=== PATIENT | male | born 1955 | race Caucasian/White ===

== ENCOUNTER 2016-05-28 10:01 | Emergency (ER) | payer MEDICARE, MEDICAID ==
--- NOTE | 2016-05-28 10:37 | ER Document Report ---
ED General - General Chief Complaint: Syncope Stated Complaint: POSSIBLE SYNCOPE Time seen by provider: 10:25 Mode of Arrival: Medic Information source: Patient, Relative Notes: 61-year-old male who fell down while standing in line and office approximate 9: 00 this morning. Family with him state they were told by witnesses that the patient had eyes rolling back of his head and passed out but the patient is adamant that he did not pass out or strike his head and that he fell because of pain in his left foot where he has a wound VAC. His mental status that was normal according to family. He lives with his sister and she confirms that he has been in his normal state of health otherwise recently. Patient says he did take his medicines as usual this morning and did not take any extra. He reports has not had any recent problems with the wound VAC on his left foot. He has no complaints now. Sister reports that he fell in the bathtub 2 weeks ago and had an episode about 1 week ago where he was confused about what rhythm he was in. The patient denies numbness weakness to any extremity. He denies chest pain, abdominal pain, back pain, shortness breath, diaphoresis, nausea, vomiting, blurry vision, or difficulty with speech or swallowing. Physical Exam: General: Alert, appears well. HEENT: Normocephalic. Atraumatic. PERRLA. Extraocular movements intact. Discs sharp no papilledema tympanic members canals clear no otorhinorrhea Oropharynx clear. Neck: Supple. Non-tender. No JVD Respiratory: No respiratory distress. Few rhonchi bilateral breath sounds equal no accessory muscle use Cardiovascular: Slightly irregular no murmur Abdominal: Normal Inspection. Soft, non-tender. No distension. Normal Bowel Sounds. Back: Non-tender. No deformity or step off. Upper extremities warm to plus pulses and no deformity. Left lower extremity has a dry dressing with wound VAC in place to the foot. He has brisk upper refill all toes. I do not palpatea posterior tibial pulse. Right lower extremity also has brisk capillary refill and is warm equally with the other side but again I do not palpate dorsalis pedis or posterior tibial pulse. Neurological: Cranial nerves III-XII grossly intact bilaterally. Strength 5/5 throughout. Sensation intact to light touch. Normal cognition. Alert oriented to person and place which Sr. reports his baseline. Cerebellar function intact by finger-nose test bilaterally Normal speech. Psychological: Normal affect. Normal Mood. Skin: Warm. Dry. Normal color. TRAVEL OUTSIDE OF THE [place] IN LAST 30 DAYS: No - Related Data Allergies/Adverse Reactions: pioglitazone HCl [From [employer]] Adverse Reaction (Verified 12/20/15 12:39) Past Medical History - Social History Smoking Status: Current Every Day Smoker Family History: CAD - Past Medical History Cardiac Medical History: Reports: Hx Atrial Fibrillation, Hx Congestive Heart Failure, Hx Heart Attack, Hx Hypercholesterolemia, Hx Hypertension Pulmonary Medical History: Reports: Hx COPD Neurological Medical History: Reports: Hx Cerebrovascular Accident - Possibly had a small CVA Endocrine Medical History: Reports: Hx Diabetes Mellitus Type 2, Hx Hypothyroidism Past Surgical History: Reports: Hx Cardiac Catheterization, Hx Coronary Artery Bypass Graft - 3 vessel, Hx Coronary Stent, Hx Open Heart Surgery - STENTS TRIPLE BYPASS - Immunizations Hx Diphtheria, Pertussis, Tetanus Vaccination: No - unk Hx Pneumococcal Vaccination: 12/27/12 Review of Systems - Review of Systems Constitutional: denies: Chills, Fever EENT: denies: Ear pain, Throat pain Cardiovascular: Syncope. denies: Chest pain, Dyspnea Respiratory: Cough - Chronic related to COPD. denies: Short of breath, Wheezing Gastrointestinal: denies: Abdominal pain, Diarrhea, Nausea, Vomiting, Blood in vomit, Black stools, Rectal bleeding Genitourinary: denies: Burning, Dysuria Musculoskeletal: See HPI. denies: Back pain Hematologic/Lymphatic: denies: Swollen glands Neurological/Psychological: Weakness. denies: Numbness Physical Exam - Vital signs Vitals: Temp Pulse Resp BP Pulse Ox 97.4 F 75 18 101/50 L 100 05/28/16 10:17 05/28/16 10:17 05/28/16 10:17 05/28/16 10:17 05/28/16 10:17 Course - Re-evaluation Re-evalutation: 05/28/16 14:27 Patient has ambulated in the department without difficulty and has had no further episodes of syncope. Orthostatic Check Is Lying Blood Pressure Was 67 but This Came up with Standing and a Recheck Pressure after He Ambulated Was in the 90s. As His Heart Rate Is Only 61 It May Be That He Requires a Decrease in Dose of His Atrial Fibrillation and Blood Pressure Medicines, Instructed Not to Take Metoprolol Cardizem or Benazepril Tonight or Tomorrow and Then follow with his physician Dr. stringer tomorrow for recheck. The patient is mentating at his baseline and will be discharged in the care of his sister who lives with him his history does not suggest acute coronary syndrome or cerebrovascular disease as an etiology - Vital Signs Vital signs: Temp Pulse Resp BP Pulse Ox 97.4 F 65 18 64/49 L 100 05/28/16 10:17 05/28/16 13:15 05/28/16 10:17 05/28/16 13:15 05/28/16 10:17 - Laboratory Result Diagrams: 05/28/16 10:08 05/28/16 10:08 Laboratory results interpreted by me: 05/28/16 05/28/16 10:08 10:08 RBC 3.94 L Hgb 11.9 L Hct 35.0 L RDW 14.6 H Glucose 148 H Alkaline Phosphatase 133 H - Diagnostic Test Radiology reviewed: Image reviewed, Reports reviewed - EKG Interpretation by Me Additional EKG results interpreted by me: 05/28/16 10:36 EKG reviewed by myself shows atrial fibrillation ventricular rate 61 occasional PVC no significant change compared to 12/18/2015 Discharge - Discharge Clinical Impression: Syncope Qualifiers: Syncope type: unspecified Qualified Code(s): R55 - Syncope and collapse Atrial fibrillation Qualifiers: Atrial fibrillation type: chronic Qualified Code(s): I48.2 - Chronic atrial fibrillation Hypotension Qualifiers: Hypotension type: unspecified hypotension type Qualified Code(s): I95.9 - Hypotension, unspecified Condition: Stable Disposition: HOME, SELF-CARE Additional Instructions: Syncopal Episode Syncope (fainting or near-fainting) can occur from many different health problems. Or it can be a simple fainting spell requiring no treatment. It is safe for you to go home, but further evaluation will likely be necessary. Your work-up may include tests for internal bleeding, heart disease, medication problems, or near-strokes. Tests are not always required, however, depending on the nature of your problem. The warning signs of an impending faint include: dizziness, lightheadedness , nausea, hot flashes, tingling, and weakness. If this happens, lay down and put your feet up, then wait until all of these symptoms have passed before standing up again. If these episodes become recurrent, or if you develop chest pain, heart palpitations, mental confusion, blurred vision, or headache, then you should call the physician, or go to the emergency room. Do not take Cardizem, metoprolol, or benazepril tonight or tomorrow morning until you have checked with Dr. Stringer Referrals: LIAM STRINGER PA-C [Primary Care Provider] - Follow up tomorrow
[2016-05-28 10:43] LABS: ABSOLUTE BASOPHILS # (AUTO) 0.1 10^3/uL (0.0-0.2); ABSOLUTE EOSINOPHILS # (AUTO) 0.2 10^3/uL (0.0-0.6); ABSOLUTE LYMPHOCYTES (AUTO) 1.9 10^3/uL (0.5-4.7); ABSOLUTE MONOCYTES (AUTO) 0.8 10^3/uL (0.1-1.4); ABSOLUTE NEUT (AUTO) 7.3 10^3/uL (1.7-8.2); BASOPHILS % (AUTO) 0.6 % (0-2); EOSINOPHILS % (AUTO) 1.9 % (0-6); HEMOGLOBIN 11.9 g/dL (13.5-17.0); HGB HCT DIFFERENCE 0.7; LYMPHOCYTES % (AUTO) 18.4 % (13-45); MEAN CORPUSCULAR HEMOGLOBIN 30.2 pg (27.0-33.4); MEAN CORPUSCULAR VOLUME 89 fl (80-97); RED BLOOD COUNT 3.94 10^6/uL (4.35-5.55); RED CELL DISTRIBUTION WIDTH 14.6 % (11.5-14.0); SEGMENTED NEUTROPHILS % (AUTO) 71.1 % (42-78); WHITE BLOOD COUNT 10.2 10^3/uL (4.0-10.5)
[2016-05-28 10:59] LABS: ALANINE AMINOTRANSFERASE 36 U/L (21-72); ALBUMIN 3.5 g/dL (3.5-5.0); ALKALINE PHOSPHATASE 133 U/L (38-126); ANION GAP 10 (5-19); ASPARTATE AMINO TRANSFERASE 26 U/L (17-59); BILIRUBIN,TOTAL 0.7 mg/dL (0.2-1.3); BLOOD UREA NITROGEN 16 mg/dL (7-20); CALCIUM 9.2 mg/dL (8.4-10.2); CARBON DIOXIDE 28 mmol/L (22-30); CHLORIDE 104 mmol/L (98-107); CREATINE KINASE 116 U/L (55-170); CREATININE RESULT 0.66 mg/dL (0.52-1.25); GLUCOSE 148 mg/dL (75-110); MAGNESIUM 1.7 mg/dL (1.6-2.3); POTASSIUM 4.3 mmol/L (3.6-5.0); TOTAL PROTEIN 6.7 g/dL (6.3-8.2)
[2016-05-28 11:08] LABS: CREATINE KINASE MB 1.52 ng/mL (<4.55)
[2016-05-28 11:12] LABS: TROPONIN I < 0.012 ng/mL
[2016-05-28 12:06] LABS: APPEARANCE,URINE CLEAR; BILIRUBIN,URINE NEGATIVE (NEGATIVE); GLUCOSE, URINE NEGATIVE (NEGATIVE); KETONES,URINE NEGATIVE (NEGATIVE); LEUKOCYTE ESTERASE,URINE NEGATIVE (NEGATIVE); NITRITE,URINE NEGATIVE (NEGATIVE); PROTEIN,URINE NEGATIVE (NEGATIVE); URINE SPECIFIC GRAVITY 1.005; UROBILINOGEN,URINE NEGATIVE mg/dL (<2.0)
[2016-05-28 16:51] VITALS: BP 104/57
--- NOTE | 2016-05-28 20:07 | EKG REPORT ---
SEVERITY:- ABNORMAL ECG - ATRIAL FIBRILLATION VENTRICULAR PREMATURE COMPLEX NONSPECIFIC T ABNORMALITIES, LATERAL LEADS : Confirmed by: Jamal Person 28-May-2016 20:06:30
== END 2016-05-28 16:00 | disposition home or self-care (01) ==
LOC: ER 10:01
DX: R55 Syncope and collapse (principal); I48.2 Chronic atrial fibrillation; I95.9 Hypotension, unspecified; W19.XXXA Unspecified fall, initial encounter; F17.210 Nicotine dependence, cigarettes, uncomplicated
CPT/HCPCS: 36415; 70450; 71010; 72125; 80053; 81001; 82550; 82553; 83735; 84484; 85025; 87086; 93005; 93010; 99285

== ENCOUNTER 2016-06-16 11:58 | Day surgery (SDC) | payer MEDICARE, MEDICAID ==
[2016-06-16] MEDS ORDERED: ONDANSETRON HCL INJ/PF 4 MG/2 ML SDV ONE (12:44)
[2016-06-16] MEDS ORDERED: PROMETHAZINE HCL INJ 25 MG/1 ML VIAL ONE (12:44)
[2016-06-16] MEDS ORDERED: NALOXONE HCL INJ/PF 0.4 MG/1 ML SDV ONE (12:44)
[2016-06-16] MEDS ORDERED: MIDAZOLAM 2 MG/2 ML INJ ONE (12:44)
[2016-06-16] MEDS ORDERED: DIPHENHYDRAMINE HCL 50 MG/ML VIAL ONE (12:44)
[2016-06-16] MEDS ORDERED: EPINEPHRINE INJ 1 MG/10 ML DISP.SYRIN ONE (12:45)
[2016-06-16] MEDS ORDERED: FENTANYL CITRATE INJ/PF 100 MCG/2 ML AMPUL ONE (12:45)
[2016-06-16] MEDS ORDERED: GLUCAGON,HUMAN RECOMB 1 MG INJ ONE (12:45)
[2016-06-16] MEDS ORDERED: FLUMAZENIL INJ 0.5 MG/5 ML VIAL IV ONE (12:45)
--- NOTE | 2016-06-16 14:03 | Operative Report ---
Operative Report DATE OF SURGERY: 06/16/16 Operative Report: The risks benefits and alternatives of the procedure including risks of bleeding , perforation requiring surgery I explained to the patient in detail and informed consent is obtained. Patient is taken to the endoscopy suite and placed in a left, lateral decubital position. A rectal examination was done which did not reveal any masses tears or fissures. Timeout is called. Conscious sedation medications are provided. An Olympus videoscope was inserted into the patient's rectum. The scope was then gradually advanced all the way to the cecum. The cecum was identified by the usual anatomical landmarks including the ileocecal valve as well as the appendiceal office. Photodocumentation is obtained. The scope was then sequentially pulled back via the various segments of the colon including the ascending colon, hepatic flexure, transverse colon, splenic flexure, descending colon and finally into the rectosigmoid portions of the colon. Retroflexion maneuvers performed. Prep is poor. Patient also has a redundant colon. PREOPERATIVE DIAGNOSIS: Colorectal cancer screening POSTOPERATIVE DIAGNOSIS: Mild right-sided inflammation status post biopsy OPERATION: Colonoscopy with biopsy SURGEON: DIPIKA MARADIAGA ANESTHESIA: Moderate Sedation - 2 mg of Versed. Conscious sedation monitoring time 30 minutes. TISSUE REMOVED OR ALTERED: Colon mucosal specimen obtained obtain COMPLICATIONS: None. ESTIMATED BLOOD LOSS: none. INTRAOPERATIVE FINDINGS: No Masses, AVMs, diverticulosis obstructive lesion seen. PROCEDURE: Patient tolerated the procedure well. No immediate postprocedure complications are noted. Patient is discharged in good condition. Discharge date 06/16/2016. Discharge diet: Regular. Discharge activity: Regular. 2-3 week follow-up to discuss findings. Patient is instructed to call the office or proceed to the emergency room should there be any further problems or questions. We'll await on biopsies.
[2016-06-16 14:35] VITALS: BP 135/75
== END 2016-06-16 14:30 | disposition home or self-care (01) ==
LOC: END 11:58
PROVIDERS: ATTEND Internal Medicine Gastroenterology
PROC: 0DBL8ZX Excision of Transverse Colon, Via Natural or Artificial Opening Endoscopic, Diagnostic (ICD-10-PCS; principal; 2016-06-16 12:30)
DX: Z12.11 Encounter for screening for malignant neoplasm of colon (principal); K52.9 Noninfective gastroenteritis and colitis, unspecified; I10 Essential (primary) hypertension; I25.10 Atherosclerotic heart disease of native coronary artery without angina pectoris; E11.42 Type 2 diabetes mellitus with diabetic polyneuropathy; E78.5 Hyperlipidemia, unspecified; J44.9 Chronic obstructive pulmonary disease, unspecified; Z79.84 Long term (current) use of oral hypoglycemic drugs; Z79.82 Long term (current) use of aspirin; Z79.52 Long term (current) use of systemic steroids
CPT/HCPCS: 45380; 82962; 88305 ×2; J2250; J0171; J1200; J1610; J2310; J2405; J2550; J3010; J3490

== ENCOUNTER → 2017-11-30 | Outpatient (CLI) | payer MEDICARE, MEDICAID ==
--- NOTE | 2017-11-30 09:30 | RADIOLOGY REPORT (SQ) ---
EXAM DESCRIPTION: U/S ABDOMEN COMPLETE W/O DOP COMPLETED DATE/TIME: 11/30/2017 8:33 am REASON FOR STUDY: ABN LIVER FUNCTION (K76.89) K76.89 OTHER SPECIFIED DISEASES OF LIVER COMPARISON: CT chest 12/24/2012 TECHNIQUE: Dynamic and static grayscale images acquired of the abdomen and recorded on PACS. Additio nal selected color Doppler and spectral images recorded. LIMITATIONS: Midline bowel gas, body habitus FINDINGS: PANCREAS: No masses. Visualized pancreatic duct normal caliber. LIVER: No masses. Echotexture normal. LIVER VASCULATURE: Normal directional flow of the main portal vein and hepatic veins. GALLBLADDER: Surgically absent ULTRASOUND-DETECTED BETANCOURT'S SIGN: Negative. INTRAHEPATIC DUCTS AND COMMON DUCT: CBD and intrahepatic ducts normal caliber. No filling defects. D istal common duct not well seen due to duodenum gas INFERIOR VENA CAVA: Normal flow. AORTA: No aneurysm. RIGHT KIDNEY: Normal size. Normal echogenicity. No solid or suspicious masses. No hydronephros is. No calcifications. LEFT KIDNEY: Normal size. Normal echogenicity. No solid or suspicious masses. No hydronephrosi s. No calcifications. SPLEEN: Normal size. No solid masses. PERITONEAL AND PLEURAL SPACES: No ascites or effusions. OTHER: No other significant finding. IMPRESSION: Post cholecystectomy. Otherwise unremarkable study TECHNICAL DOCUMENTATION: JOB ID: [id number]- All Rights Reserved Reading location - IP/workstation name: [email or web address]
== END ==
LOC: RAD 07:49
PROVIDERS: ATTEND Physician Assistant
DX: K76.89 Other specified diseases of liver (principal); Z90.49 Acquired absence of other specified parts of digestive tract
CPT/HCPCS: 76700

== ENCOUNTER 2018-01-31 16:43 | Inpatient (IN) | payer MEDICARE, MEDICAID ==
--- NOTE | 2018-01-31 17:54 | ER Document Report ---
ED Medical Screen (RME) - General Chief Complaint: Leg Pain Stated Complaint: LEG SWELLING Time Seen by Provider: 01/31/18 17:48 Notes: 63-year-old male patient multiple comorbidities sent to the emergency room for swelling to his feet, redness to the right leg, and the right foot is cool to touch for the last possibly 2-3 days. The right foot is cool with slowed capillary refill compared to the left. I have greeted and performed a rapid initial assessment of this patient. A comprehensive ED assessment and evaluation of the patient, analysis of test results and completion of the medical decision making process will be conducted by additional ED providers. TRAVEL OUTSIDE OF THE [place] IN LAST 30 DAYS: No - Related Data Allergies/Adverse Reactions: No Known Allergies Allergy (Verified 01/31/18 17:38) Past Medical History - Social History Frequency of alcohol use: None Drug Abuse: None - Past Medical History Cardiac Medical History: Reports: Hx Atrial Fibrillation, Hx Congestive Heart Failure, Hx Coronary Artery Disease - CARDIAC STENTS X 3, Hx Heart Attack - ?, Hx Hypercholesterolemia, Hx Hypertension Pulmonary Medical History: Reports: Hx COPD Denies: Hx Asthma, Hx Bronchitis, Hx Pneumonia Neurological Medical History: Reports: Hx Cerebrovascular Accident - Possibly had a small CVA. Denies: Hx Seizures Endocrine Medical History: Reports: Hx Diabetes Mellitus Type 1, Hx Diabetes Mellitus Type 2, Hx Hypothyroidism Renal/ Medical History: Denies: Hx Peritoneal Dialysis Musculoskeltal Medical History: Denies Hx Arthritis Past Surgical History: Reports: Hx Cardiac Catheterization - stents, Hx Cholecystectomy, Hx Coronary Artery Bypass Graft - 3 vessel, Hx Coronary Stent, Hx Open Heart Surgery - TRIPLE BYPASS - Immunizations Hx Diphtheria, Pertussis, Tetanus Vaccination: No Physical Exam - Vital signs Vitals: Temp Pulse Resp BP Pulse Ox 98.5 F 91 18 112/68 97 01/31/18 17:08 01/31/18 17:08 01/31/18 17:08 01/31/18 17:08 01/31/18 17:08 Course - Vital Signs Vital signs: Temp Pulse Resp BP Pulse Ox 98.5 F 91 18 112/68 97 01/31/18 17:08 01/31/18 17:08 01/31/18 17:08 01/31/18 17:08 01/31/18 17:08 Doctor's Discharge - Discharge Referrals: LIAM NIÑO PA-C [Primary Care Provider] - Follow up as needed
[2018-01-31 18:53] LABS: ABSOLUTE BASOPHILS # (AUTO) 0.1 10^3/uL (0.0-0.2); ABSOLUTE EOSINOPHILS # (AUTO) 0.2 10^3/uL (0.0-0.6); ABSOLUTE LYMPHOCYTES (AUTO) 2.5 10^3/uL (0.5-4.7); ABSOLUTE NEUT (AUTO) 9.3 10^3/uL (1.7-8.2); BASOPHILS % (AUTO) 0.7 % (0-2); EOSINOPHILS % (AUTO) 1.2 % (0-6); HEMATOCRIT 44.5 % (37.9-51.0); HEMOGLOBIN 15.1 g/dL (13.5-17.0); LYMPHOCYTES % (AUTO) 19.3 % (13-45); MEAN CORPUSCULAR HEMOGLOBIN 30.6 pg (27.0-33.4); MEAN CORPUSCULAR VOLUME 90 fl (80-97); PLATELET COUNT 131 10^3/uL (150-450); RED BLOOD COUNT 4.95 10^6/uL (4.35-5.55); RED CELL DISTRIBUTION WIDTH 15.7 % (11.5-14.0); SEGMENTED NEUTROPHILS % (AUTO) 70.8 % (42-78); TOTAL CELLS COUNTED % (AUTO) 100 %; WHITE BLOOD COUNT 13.1 10^3/uL (4.0-10.5)
[2018-01-31 19:05] LABS: ALANINE AMINOTRANSFERASE 44 U/L (21-72); ALBUMIN 4.2 g/dL (3.5-5.0); ALKALINE PHOSPHATASE 162 U/L (38-126); ANION GAP 8 (5-19); ASPARTATE AMINO TRANSFERASE 37 U/L (17-59); BILIRUBIN,DIRECT 0.4 mg/dL (0.0-0.4); BILIRUBIN,TOTAL 1.4 mg/dL (0.2-1.3); BLOOD UREA NITROGEN 12 mg/dL (7-20); CALCIUM 9.3 mg/dL (8.4-10.2); CARBON DIOXIDE 30 mmol/L (22-30); CHLORIDE 100 mmol/L (98-107); CREATINE KINASE 141 U/L (55-170); GLUCOSE 174 mg/dL (75-110); POTASSIUM 4.3 mmol/L (3.6-5.0); SODIUM 138.4 mmol/L (137-145)
--- NOTE | 2018-01-31 19:11 | ER Document Report ---
ED Extremity Problem, Lower - General Chief Complaint: Leg Pain Stated Complaint: LEG SWELLING Time Seen by Provider: 01/31/18 17:48 Mode of Arrival: Ambulatory Information source: Patient Notes: 63-year-old male presents emergency department with bilateral lower extremity edema, erythema and cold right foot. Patient states that this is been going on for the last 3 days. He followed up with his PCP, Humera Neal today and was told to go to the Emergency department for evaluation. Patient has a history of Atrial fibrillation. Denies being on anticoagulants. Denies fever, chills. TRAVEL OUTSIDE OF THE [place] IN LAST 30 DAYS: No - HPI Location: Leg Occurred: Other - 3 days Where: Home Onset/Duration: Gradual Quality of pain: Achy Severity: Mild Recent injury: No Exacerbated by: Nothing Relieved by: Nothing - Related Data Allergies/Adverse Reactions: No Known Allergies Allergy (Verified 01/31/18 17:38) Past Medical History - General Information source: Patient - Social History Smoking Status: Current Every Day Smoker Frequency of alcohol use: None Drug Abuse: None Family History: CAD Patient has suicidal ideation: No Patient has homicidal ideation: No - Past Medical History Cardiac Medical History: Reports: Hx Atrial Fibrillation, Hx Congestive Heart Failure, Hx Coronary Artery Disease - CARDIAC STENTS X 3, Hx Heart Attack - ?, Hx Hypercholesterolemia, Hx Hypertension Pulmonary Medical History: Reports: Hx COPD Denies: Hx Asthma, Hx Bronchitis, Hx Pneumonia Neurological Medical History: Reports: Hx Cerebrovascular Accident - Possibly had a small CVA. Denies: Hx Seizures Endocrine Medical History: Reports: Hx Diabetes Mellitus Type 1, Hx Diabetes Mellitus Type 2, Hx Hypothyroidism Renal/ Medical History: Denies: Hx Peritoneal Dialysis Musculoskeletal Medical History: Denies Hx Arthritis Past Surgical History: Reports: Hx Cardiac Catheterization - stents, Hx Cholecystectomy, Hx Coronary Artery Bypass Graft - 3 vessel, Hx Coronary Stent, Hx Open Heart Surgery - TRIPLE BYPASS - Immunizations Hx Diphtheria, Pertussis, Tetanus Vaccination: No Hx Pneumococcal Vaccination: 12/27/12 Review of Systems - Review of Systems Constitutional: No symptoms reported EENT: No symptoms reported Cardiovascular: No symptoms reported Respiratory: No symptoms reported Gastrointestinal: No symptoms reported Genitourinary: No symptoms reported Male Genitourinary: No symptoms reported Musculoskeletal: No symptoms reported Skin: Change in color, Lesions Hematologic/Lymphatic: No symptoms reported Neurological/Psychological: No symptoms reported Physical Exam - Vital signs Vitals: Temp Pulse Resp BP Pulse Ox 98.5 F 91 18 112/68 97 01/31/18 17:08 01/31/18 17:08 01/31/18 17:08 01/31/18 17:08 01/31/18 17:08 - Notes Notes: PHYSICAL EXAMINATION: GENERAL: Well-appearing, well-nourished and in no acute distress. HEAD: Atraumatic, normocephalic. EYES: Pupils equal round and reactive to light, extraocular movements intact, sclera anicteric, conjunctiva are normal. ENT: Nares patent, oropharynx clear without exudates. Moist mucous membranes. NECK: Normal range of motion, supple without lymphadenopathy LUNGS: Breath sounds clear to auscultation bilaterally and equal. No wheezes rales or rhonchi. HEART: Regular rate and rhythm without murmurs ABDOMEN: Soft, nontender, nondistended abdomen. No guarding, no rebound. No masses appreciated. Musculoskeletal: Normal range of motion. Bilateral edema R>L. R foot cool to touch. Serous drainage from bilateral lower extremities. NEUROLOGICAL: Cranial nerves grossly intact. Normal speech, normal gait. Normal sensory, motor exams PSYCH: Normal mood, normal affect. SKIN: Erythema and serous drainage to the bilateral lower extremities. R foot cool to touch. Course - Re-evaluation Re-evalutation: 01/31/18 21:46 I spoke with the radiologist rehabilitation therapist about the arterial study report. He feels that it is a "near normal study". No signs of arterial occlusion. He does appreciate subcutaneous edema. WBC is elevated. Lactic acid elevated. Patient started on vancomycin for venous stasis cellulitis. I contacted Dr. Yee for admission. Patient is currently stable. 01/31/18 21:53 - Vital Signs Vital signs: Temp Pulse Resp BP Pulse Ox 98.5 F 91 16 127/83 H 98 01/31/18 17:08 01/31/18 17:08 01/31/18 23:01 01/31/18 23:00 01/31/18 23:01 - Laboratory Result Diagrams: 01/31/18 18:38 01/31/18 18:38 Laboratory results interpreted by me: 01/31/18 01/31/18 01/31/18 18:38 18:38 18:38 WBC 13.1 H RDW 15.7 H Plt Count 131 L Absolute Neutrophils 9.3 H Glucose 174 H Hemoglobin A1c % Lactic Acid 2.3 H Total Bilirubin 1.4 H Alkaline Phosphatase 162 H TSH 01/31/18 01/31/18 18:38 18:38 WBC RDW Plt Count Absolute Neutrophils Glucose Hemoglobin A1c % 8.3 H Lactic Acid Total Bilirubin Alkaline Phosphatase TSH 7.82 H Discharge - Discharge Clinical Impression: Venous stasis dermatitis of both lower extremities Cellulitis of lower extremity Qualifiers: Laterality: right Qualified Code(s): L03.115 - Cellulitis of right lower limb Condition: Stable Disposition: ADMITTED OBSERVATION Admitting Provider: Hospitalist Unit Admitted: Medical Floor
[2018-01-31 19:52] LABS: INTERNATIONAL RATION (INR) 1.01; PROTHROMBIN TIME 13.8 SEC (11.4-15.4)
[2018-01-31 19:53] LABS: PARTIAL THROMBOPLASTIN TIME 35.4 SEC (23.5-35.8)
--- NOTE | 2018-01-31 20:44 | XCELERA REPORT ---
[address] [address] Lower Extremity Arterial Evaluation Name: SALBADOR AVILES Age: 63 yrs Gender: Male : 1955 Patient Status: Emergency Patient Location: ER Study Date: 01/31/2018 06:55 PM Procedure: A color flow and duplex scan of the lower extremity arteries was performed on the right with velocity and waveform anaylsis. Reason For Study: Right foot cold with slowed capillary refill Ordering Physician: AYAKA ZABALA Performed By: Stephanie Omalley Measurements and Calculations Right Left SOLE SEAMER PSV 156.3 cm/sec Prox PFA PSV 55.0 cm/sec Prox Pop A PSV 170.9 cm/sec Mid IVY PSV -68.1 cm/sec Mid IMPROVEMENT ADVISOR PSV 69.1 cm/sec Melvin Pedis PSV -63.9 cm/sec Right Side Arterial Evaluation Normal velocity and triphasic waveforms noted from the Common Femoral artery to the Popliteal. Biphasic with normal velocity in the infrageniculate vessels. 0-19% stenosis at the infrageniculate vessels. Interpretation Summary Mild hemodynamically significant lesions in the right lower extremity only, on duplex imaging, at rest. : AYAKA ZABALA > Angus Aviles
[2018-01-31] MEDS ORDERED: VANCOMYCIN HCL INJ 1000 MG VIAL IV ONE (21:14)
[2018-01-31] MEDS ORDERED: DEXTROSE 40% GEL 15 GM TUBE PO PRN ×2 (21:42)
[2018-01-31] MEDS ORDERED: MAGNESIUM HYDROXIDE SUSP 30 ML UDCUP PO PRN (21:42)
[2018-01-31] MEDS ORDERED: GLUCAGON,HUMAN RECOMB 1 MG INJ IM PRN (21:42)
[2018-01-31] MEDS ORDERED: ACETAMINOPHEN 325 MG TABLET PO PRN (21:42)
[2018-01-31] MEDS ORDERED: MAG HYDROX/AL HYDROX/SIMETH SUSP 30 ML UDCUP PO PRN (21:42)
[2018-01-31] MEDS ORDERED: IPRATROPIUM/ALBUTEROL 0.5-2.5 MG/3 ML AMPUL NEB PRN (21:42)
[2018-01-31] MEDS ORDERED: DEXTROSE 50%-WATER 25 GM/50 ML DISP.SYRIN IV PRN (21:42)
[2018-01-31] MEDS ORDERED: NORMAL SALINE 1000 ML 1,000 ML IV SCH (21:45)
[2018-01-31] MEDS ORDERED: FLUTICASONE NASAL SPRAY 50 MCG/SPRY 120 SPRAY/16 GM ONE (22:35)
[2018-01-31] MEDS: FLUTICASONE NASAL SPRAY 50 MCG/SPRY 120 SPRAY/16 GM NASL SCH (22:58)
[2018-01-31] MEDS: HEPARIN SOD (PORCINE) 5,000 UNIT/ML 1 ML SYRINGE SUBCUT SCH (22:59)
[2018-01-31] MEDS: METOPROLOL TARTRATE 50 MG TABLET PO SCH (22:59)
[2018-01-31] MEDS: ATORVASTATIN CALCIUM 80 MG TABLET PO SCH (22:59)
[2018-02-01] MEDS: CETIRIZINE 10 MG TABLET PO SCH ×2 (00:07→22:06)
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
[2018-02-01] MEDS: HEPARIN SOD (PORCINE) 5,000 UNIT/ML 1 ML SYRINGE SUBCUT SCH ×3 (05:17→22:02)
[2018-02-01 07:10] LABS: ABSOLUTE EOSINOPHILS # (AUTO) 0.1 10^3/uL (0.0-0.6); ABSOLUTE LYMPHOCYTES (AUTO) 1.5 10^3/uL (0.5-4.7); ABSOLUTE MONOCYTES (AUTO) 0.8 10^3/uL (0.1-1.4); ABSOLUTE NEUT (AUTO) 7.5 10^3/uL (1.7-8.2); BASOPHILS % (AUTO) 0.5 % (0-2); EOSINOPHILS % (AUTO) 1.3 % (0-6); HEMOGLOBIN 13.8 g/dL (13.5-17.0); LYMPHOCYTES % (AUTO) 15.3 % (13-45); MEAN CORPUSCULAR HEMOGLOBIN 30.9 pg (27.0-33.4); MEAN CORPUSCULAR HGB CONC 34.6 g/dL (32.0-36.0); MEAN CORPUSCULAR VOLUME 89 fl (80-97); MONOCYTES % (AUTO) 8.1 % (3-13); PLATELET COUNT 112 10^3/uL (150-450); RED BLOOD COUNT 4.48 10^6/uL (4.35-5.55); RED CELL DISTRIBUTION WIDTH 15.8 % (11.5-14.0); SEGMENTED NEUTROPHILS % (AUTO) 74.8 % (42-78); TOTAL CELLS COUNTED % (AUTO) 100 %
[2018-02-01 07:18] LABS: ANION GAP 11 (5-19); BLOOD UREA NITROGEN 11 mg/dL (7-20); CALCIUM 8.9 mg/dL (8.4-10.2); CARBON DIOXIDE 26 mmol/L (22-30); CHLORIDE 103 mmol/L (98-107); GLUCOSE 159 mg/dL (75-110); POTASSIUM 4.2 mmol/L (3.6-5.0); SODIUM 139.8 mmol/L (137-145)
--- NOTE | 2018-02-01 10:00 | Physician Advisory Note ---
Physician Advisor ProgressNote .: Pursuant to the plan for [facility], I have reviewed the medical record for this patient. Physician Advisor Statement: Status: Medicare pt. Most cellulitis pts are most appropriate to start as Obs , then change to IP the next day if not yet felt safe for d/c. However, this pt had cellulitis (infxn) + uncontrolled DM. In addition, he initially had leukocytosis w/hyperlactatemia & hyperbilirubinemia concerning for developing into sepsis, initially had cool Rt foot concerning for possible arterial occlusion, and has continued to have recurrent tachycardia despite metoprolol. While leukocytosis is improved today, thrombocytopenia has developed. Appropriate for Inpt status. CK
[2018-02-01] MEDS: FLUTICASONE NASAL SPRAY 50 MCG/SPRY 120 SPRAY/16 GM NASL SCH ×2 (10:58→22:00)
[2018-02-01] MEDS: DILTIAZEM HCL 180 MG CAPSULE.CR PO SCH (10:58)
[2018-02-01] MEDS: LEVOTHYROXINE SODIUM 0.15 MG TABLET PO SCH (10:59)
[2018-02-01] MEDS: FUROSEMIDE 20 MG TABLET PO SCH (10:59)
[2018-02-01] MEDS: RISPERIDONE 1 MG TABLET PO SCH (10:59)
[2018-02-01] MEDS: BENAZEPRIL HCL 10 MG TABLET PO SCH (10:59)
[2018-02-01] MEDS: METOPROLOL TARTRATE 50 MG TABLET PO SCH ×2 (10:59→22:05)
[2018-02-01] MEDS: ASPIRIN 325 MG TABLET PO SCH (12:21)
[2018-02-01] MEDS: INSULIN LISPRO 100 UNIT/ML 3 ML VIAL SUBCUT PRN (12:21)
[2018-02-01] MEDS ORDERED: NITROGLYCERIN 0.4 MG/TAB 25 TAB/BOTTLE SL PRN (16:21)
[2018-02-01] MEDS ORDERED: VANCOMYCIN HCL 0 MG in DEXTROSE 5%-WATER 250 ML IV NR (16:30)
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
[2018-02-01] MEDS: PIPERACILLIN SODIUM/TAZOBACTAM 3.375 GM in NORMAL SALINE 100 ML IV SCH (18:47)
[2018-02-01] MEDS: VANCOMYCIN HCL 1,500 MG in DEXTROSE 5%-WATER 250 ML IV SCH (19:30)
[2018-02-01] MEDS: INSULIN DETEMIR 100 UNIT/ML 3 ML PEN SUBCUT SCH (22:03)
[2018-02-01] MEDS: PREGABALIN 75 MG CAPSULE PO SCH (22:04)
[2018-02-01] MEDS: ATORVASTATIN CALCIUM 80 MG TABLET PO SCH (22:05)
[2018-02-02] MEDS: PIPERACILLIN SODIUM/TAZOBACTAM 3.375 GM in NORMAL SALINE 100 ML IV SCH ×4 (01:50→17:04)
[2018-02-02] MEDS: VANCOMYCIN HCL 1,500 MG in DEXTROSE 5%-WATER 250 ML IV SCH ×3 (02:55→17:40)
[2018-02-02] MEDS: PREGABALIN 75 MG CAPSULE PO SCH ×3 (06:39→21:55)
[2018-02-02] MEDS: HEPARIN SOD (PORCINE) 5,000 UNIT/ML 1 ML SYRINGE SUBCUT SCH ×3 (06:39→21:54)
[2018-02-02] MEDS: POTASSIUM CHLORIDE 10 MEQ CAPSULE.ER PO SCH (08:58)
[2018-02-02] MEDS: INSULIN DETEMIR 100 UNIT/ML 3 ML PEN SUBCUT SCH ×2 (08:58→21:54)
[2018-02-02] MEDS: ASPIRIN 325 MG TABLET PO SCH (09:02)
[2018-02-02] MEDS: METOPROLOL TARTRATE 50 MG TABLET PO SCH ×2 (09:03→21:55)
[2018-02-02] MEDS: FUROSEMIDE 20 MG TABLET PO SCH (09:03)
[2018-02-02] MEDS: RISPERIDONE 1 MG TABLET PO SCH (09:03)
[2018-02-02] MEDS: FLUTICASONE NASAL SPRAY 50 MCG/SPRY 120 SPRAY/16 GM NASL SCH ×2 (09:03→21:54)
[2018-02-02] MEDS: BENAZEPRIL HCL 10 MG TABLET PO SCH (09:03)
[2018-02-02] MEDS: DILTIAZEM HCL 180 MG CAPSULE.CR PO SCH (09:03)
[2018-02-02] MEDS: LEVOTHYROXINE SODIUM 0.15 MG TABLET PO SCH (09:04)
[2018-02-02] MEDS ORDERED: (PENDING PHARMACY ID) (Fluticasone/Vilanterol [Breo Ellipta 200-25 Mcg Inh] 1 PUFF) IH SCH (10:00)
--- NOTE | 2018-02-02 14:21 | RADIOLOGY REPORT (SQ) ---
EXAM DESCRIPTION: VENOUS BILATERAL LOWER COMPLETED DATE/TIME: 02/02/2018 2:12 pm REASON FOR STUDY: LE edema- tender to palpation- erythema- r/o DVT COMPARISON: None. TECHNIQUE: Dynamic and static thorne scale and color images acquired of both lower extremity venous sy stems. Selected spectral images acquired with additional compression and augmentation maneuvers. Imag es stored on PACS. LIMITATIONS: None. FINDINGS: RIGHT LEG COMMON FEMORAL AND FEMORAL: Normal phasicity, compression and augmentation. No visualized echogenic m aterial on thorne scale. No defects on color images. POPLITEAL: Normal compression and augmentation. No visualized echogenic material on thorne scale. No de fects on color images. CALF VESSELS: Normal compression and augmentation. No visualized echogenic material on thorne scale. No defects on color image. GSV AND SSV: Normal compression. No visualized echogenic material on thorne scale. No defects on color images. ANY DEEP VENOUS INSUFFICIENCY: Not evaluated. ANY EVIDENCE OF POPLITEAL CYST: No. OTHER: No other significant finding. LEFT LEG COMMON FEMORAL AND FEMORAL: Normal phasicity, compression and augmentation. No visualized echogenic m aterial on thorne scale. No defects on color images. POPLITEAL: Normal compression and augmentation. No visualized echogenic material on thorne scale. No de fects on color images. CALF VESSELS: Normal compression and augmentation. No visualized echogenic material on thorne scale. No defects on color images. GSV AND SSV: Normal compression. No visualized echogenic material on thorne scale. No defects on color images. ANY DEEP VENOUS INSUFFICIENCY: Not evaluated. ANY EVIDENCE POPLITEAL CYST: No. OTHER: No other significant finding. IMPRESSION: NO EVIDENCE DVT OR SVT IN EITHER LEG. TECHNICAL DOCUMENTATION: JOB ID: [id number] [employer]- All Rights Reserved Reading location - IP/workstation name: [email or web address]
--- NOTE | 2018-02-02 15:44 | PDOC PROGRESS REPORT ---
Subjective Progress Note for:: 02/02/18 Subjective:: Still with weeping from his legs, erythema and swelling. Reason For Visit: CELLULITIS AFIB DIABETES Physical Exam Vital Signs: Temp Pulse Resp BP Pulse Ox 97.6 F 69 20 97/61 L 96 02/02/18 11:41 02/02/18 11:41 02/02/18 11:41 02/02/18 11:41 02/02/18 11:41 Intake & Output 02/01/18 02/02/18 02/03/18 06:59 06:59 06:59 Intake Total 400 1986 1325 Output Total 2100 1250 Balance 400 -114 75 Weight 113.7 kg 117.8 kg General appearance: PRESENT: no acute distress, cooperative, well-developed Head exam: PRESENT: atraumatic, normocephalic Eye exam: PRESENT: conjunctiva pink. ABSENT: scleral icterus Ear exam: PRESENT: normal external ear exam Mouth exam: PRESENT: dry mucosa Neck exam: ABSENT: carotid bruit, JVD, lymphadenopathy Respiratory exam: PRESENT: rhonchi - Right base, symmetrical. ABSENT: tachypnea , wheezes Cardiovascular exam: PRESENT: RRR, +S1, +S2 GI/Abdominal exam: PRESENT: normal bowel sounds, soft. ABSENT: guarding, tenderness Extremities exam: PRESENT: tenderness - Over excoriated areas, +1 edema - On the left, +2 edema - On the right Neurological exam: PRESENT: alert, awake, oriented to person, oriented to place Psychiatric exam: PRESENT: appropriate affect, normal mood. ABSENT: anxious Skin exam: PRESENT: other - Multiple scabs on both legs. Still with erythema. Weeping from several areas. Asymmetric swelling as above. Results Laboratory Results: 02/01/18 05:27 02/01/18 05:27 02/01/18 05:27 Free T4 1.00 Impressions: Venous Doppler Study 02/02/18 00:00 IMPRESSION: NO EVIDENCE DVT OR SVT IN EITHER LEG. Assessment & Plan - Diagnosis (1) Cellulitis of lower extremity Qualifiers: Laterality: right Qualified Code(s): L03.115 - Cellulitis of right lower limb Is this a current diagnosis for this admission?: Yes Plan: The patient has cellulitis of both lower extremities. He is on Zosyn and vancomycin. MRSA screen is pending. If negative consider discontinuing vancomycin. There is asymmetric swelling with his right leg greater than his left. Doppler study was negative for DVT. This is possibly chronic. He still has significant erythema and drainage. Consider multilayer compression wraps. (2) Diabetes Qualifiers: Diabetes mellitus type: type 2 Diabetes mellitus terminal make up operator insulin use: unspecified fdc insulin use status Diabetes mellitus complication status : without complication Qualified Code(s): E11.9 - Type 2 diabetes mellitus without complications Is this a current diagnosis for this admission?: Yes Plan: We will continue his insulin therapy. With the infection he is exhibiting some high glucose readings. He is on Humalog sliding scale. (3) Hypothyroid Qualifiers: Hypothyroidism type: unspecified Qualified Code(s): E03.9 - Hypothyroidism , unspecified Is this a current diagnosis for this admission?: Yes Plan: Continue levothyroxine. - Time Time Spent with patient: 25-34 minutes Medications reviewed and adjusted accordingly: Yes - Plan Summary Plan Summary: Evidently the home situation is no longer tenable. Discharge planning has been initiated efforts for placement.
--- NOTE | 2018-02-02 16:49 | RADIOLOGY REPORT (SQ) ---
EXAM DESCRIPTION: CHEST SINGLE VIEW COMPLETED DATE/TIME: 02/02/2018 4:33 pm REASON FOR STUDY: Crackles right base COMPARISON: 05/28/2016 NUMBER OF VIEWS: One view. TECHNIQUE: Single frontal radiographic view of the chest acquired. LIMITATIONS: None. FINDINGS: LUNGS AND PLEURA: No opacities, masses or pneumothorax. No pleural effusion. MEDIASTINUM AND HILAR STRUCTURES: No masses or contour abnormality. HEART AND VASCULATURE: Cardiac enlargement. Vascular congestion. BONES: No acute findings. HARDWARE: CABG. OTHER: No other significant finding. IMPRESSION: CARDIAC ENLARGEMENT. VASCULAR CONGESTION. TECHNICAL DOCUMENTATION: JOB ID: [id number] [employer]- All Rights Reserved Reading location - IP/workstation name: [email or web address]
[2018-02-02 18:35] LABS: VANCOMYCIN,TROUGH 17.8 ug/mL (5.0-20.0)
[2018-02-02] MEDS: ATORVASTATIN CALCIUM 80 MG TABLET PO SCH (21:55)
[2018-02-02] MEDS: CETIRIZINE 10 MG TABLET PO SCH (21:56)
[2018-02-03] MEDS: PIPERACILLIN SODIUM/TAZOBACTAM 3.375 GM in NORMAL SALINE 100 ML IV SCH ×4 (00:38→19:15)
[2018-02-03] MEDS: VANCOMYCIN HCL 1,500 MG in DEXTROSE 5%-WATER 250 ML IV SCH ×3 (03:30→17:26)
[2018-02-03 06:11] LABS: ABSOLUTE BASOPHILS # (AUTO) 0.1 10^3/uL (0.0-0.2); ABSOLUTE EOSINOPHILS # (AUTO) 0.1 10^3/uL (0.0-0.6); ABSOLUTE LYMPHOCYTES (AUTO) 1.5 10^3/uL (0.5-4.7); ABSOLUTE MONOCYTES (AUTO) 0.7 10^3/uL (0.1-1.4); ABSOLUTE NEUT (AUTO) 5.3 10^3/uL (1.7-8.2); BASOPHILS % (AUTO) 0.7 % (0-2); EOSINOPHILS % (AUTO) 1.7 % (0-6); HEMOGLOBIN 13.1 g/dL (13.5-17.0); LYMPHOCYTES % (AUTO) 20.1 % (13-45); MEAN CORPUSCULAR HEMOGLOBIN 30.9 pg (27.0-33.4); MEAN CORPUSCULAR HGB CONC 34.6 g/dL (32.0-36.0); MEAN CORPUSCULAR VOLUME 89 fl (80-97); MONOCYTES % (AUTO) 8.6 % (3-13); RED BLOOD COUNT 4.25 10^6/uL (4.35-5.55); RED CELL DISTRIBUTION WIDTH 15.3 % (11.5-14.0); SEGMENTED NEUTROPHILS % (AUTO) 68.9 % (42-78); TOTAL CELLS COUNTED % (AUTO) 100 %; WHITE BLOOD COUNT 7.7 10^3/uL (4.0-10.5)
[2018-02-03 06:17] LABS: PLATELET COUNT 98 10^3/uL (150-450)
[2018-02-03 06:24] LABS: ANION GAP 14 (5-19); BLOOD UREA NITROGEN 10 mg/dL (7-20); CALCIUM 8.8 mg/dL (8.4-10.2); CARBON DIOXIDE 23 mmol/L (22-30); CHLORIDE 103 mmol/L (98-107); GLUCOSE 214 mg/dL (75-110); POTASSIUM 4.1 mmol/L (3.6-5.0); SODIUM 139.9 mmol/L (137-145)
[2018-02-03] MEDS: PREGABALIN 75 MG CAPSULE PO SCH ×3 (06:33→22:01)
[2018-02-03] MEDS: HEPARIN SOD (PORCINE) 5,000 UNIT/ML 1 ML SYRINGE SUBCUT SCH ×3 (06:33→22:02)
[2018-02-03] MEDS: POTASSIUM CHLORIDE 10 MEQ CAPSULE.ER PO SCH (08:43)
[2018-02-03] MEDS: INSULIN LISPRO 100 UNIT/ML 3 ML VIAL SUBCUT PRN ×2 (08:43→12:02)
[2018-02-03] MEDS: INSULIN DETEMIR 100 UNIT/ML 3 ML PEN SUBCUT SCH ×2 (08:44→22:23)
[2018-02-03] MEDS: FLUTICASONE NASAL SPRAY 50 MCG/SPRY 120 SPRAY/16 GM NASL SCH ×2 (10:57→23:11)
[2018-02-03] MEDS: ASPIRIN 325 MG TABLET PO SCH (10:58)
[2018-02-03] MEDS: BENAZEPRIL HCL 10 MG TABLET PO SCH (10:59)
[2018-02-03] MEDS: RISPERIDONE 1 MG TABLET PO SCH (10:59)
[2018-02-03] MEDS: METOPROLOL TARTRATE 50 MG TABLET PO SCH ×2 (10:59→22:02)
[2018-02-03] MEDS: LEVOTHYROXINE SODIUM 0.15 MG TABLET PO SCH (11:00)
[2018-02-03] MEDS: DILTIAZEM HCL 180 MG CAPSULE.CR PO SCH (11:00)
[2018-02-03] MEDS: FUROSEMIDE 20 MG TABLET PO SCH (11:00)
--- NOTE | 2018-02-03 21:04 | PDOC PROGRESS REPORT ---
Subjective Progress Note for:: 02/03/18 Subjective:: Still with weeping from his legs, erythema and swelling. 02/03/2018-the patient still has weeping from some areas of his lower leg. Overall there are no new complaints. Reason For Visit: CELLULITIS AFIB DIABETES Physical Exam Vital Signs: Temp Pulse Resp BP Pulse Ox 97.9 F 65 15 114/52 L 96 02/03/18 17:00 02/03/18 17:00 02/03/18 17:00 02/03/18 17:00 02/03/18 17:00 Intake & Output 02/02/18 02/03/18 02/04/18 06:59 06:59 06:59 Intake Total 1986 4006 952 Output Total 2100 6571 1304 Balance -114 284 -353 Weight 117.8 kg 122.7 kg General appearance: PRESENT: no acute distress, cooperative, obese, well- developed Ear exam: PRESENT: normal external ear exam Respiratory exam: PRESENT: clear to auscultation sadia, symmetrical, unlabored. ABSENT: chest wall tenderness, rales, rhonchi, wheezes Cardiovascular exam: PRESENT: RRR, +S1, +S2 GI/Abdominal exam: PRESENT: normal bowel sounds, soft. ABSENT: distended, tenderness Extremities exam: PRESENT: tenderness, +2 edema Neurological exam: PRESENT: alert, awake, oriented to person, oriented to place Psychiatric exam: PRESENT: appropriate affect, normal mood. ABSENT: agitated Skin exam: PRESENT: other - Multiple scabbed areas possibly from excoriation. Still with several scattered spots on both legs with weeping drainage. Results Laboratory Results: 02/03/18 05:07 02/03/18 05:07 02/03/18 02/03/18 05:07 05:07 WBC 7.7 RBC 4.25 L Hgb 13.1 L Hct 38.0 MCV 89 MCH 30.9 MCHC 34.6 RDW 15.3 H Plt Count 98 L Seg Neutrophils % 68.9 Lymphocytes % 20.1 Monocytes % 8.6 Eosinophils % 1.7 Basophils % 0.7 Absolute Neutrophils 5.3 Absolute Lymphocytes 1.5 Absolute Monocytes 0.7 Absolute Eosinophils 0.1 Absolute Basophils 0.1 Sodium 139.9 Potassium 4.1 Chloride 103 Carbon Dioxide 23 Anion Gap 14 BUN 10 Creatinine 0.63 Est GFR ( Amer) > 60 Est GFR (Non-Af Amer) > 60 Glucose 214 H Calcium 8.8 02/01/18 19:30 Nasophary (Mrsa Only) MRSA Surveillance Culture - Final NO MRSA RECOVERED Impressions: Chest X-Ray 02/02/18 00:00 IMPRESSION: CARDIAC ENLARGEMENT. VASCULAR CONGESTION. Venous Doppler Study 02/02/18 00:00 IMPRESSION: NO EVIDENCE DVT OR SVT IN EITHER LEG. Assessment & Plan - Diagnosis (1) Cellulitis of lower extremity Qualifiers: Laterality: right Qualified Code(s): L03.115 - Cellulitis of right lower limb Is this a current diagnosis for this admission?: Yes Plan: The patient has cellulitis of both lower extremities. He is on Zosyn and vancomycin. MRSA screen is pending. If negative consider discontinuing vancomycin. There is asymmetric swelling with his right leg greater than his left. Doppler study was negative for DVT. This is possibly chronic. He still has significant erythema and drainage. Consider multilayer compression wraps. 02/03/2018-bilateral cellulitis. I will discontinue his vancomycin as the MRSA screening test was negative. We will continue the Zosyn. He still has discomfort on the legs making compression wrap therapy unreasonable. 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 With the infection he is exhibiting some high glucose readings. He is on Humalog sliding scale. 02/03/2018-he still has elevated serum glucose levels but they seem to be slowly trending downward. There is still over 200 for the most part. I will increase his bedtime Levemir to 45 units and increase his morning Levemir to 47 units. We will continue the sliding scale coverage. (3) Hypothyroid Qualifiers: Hypothyroidism type: unspecified Qualified Code(s): E03.9 - Hypothyroidism , unspecified Is this a current diagnosis for this admission?: Yes Plan: Continue levothyroxine. (4) CAD (coronary artery disease), [place] coronary artery Qualifiers: [place] vs. transplanted heart: [place] heart Associated angina: without angina Qualified Code(s): I25.10 - Atherosclerotic heart disease of [place] coronary artery without angina pectoris Is this a current diagnosis for this admission?: Yes Plan: Continue metoprolol, benazepril, diltiazem, furosemide and Lipitor.
[2018-02-03] MEDS: ATORVASTATIN CALCIUM 80 MG TABLET PO SCH (22:02)
[2018-02-03] MEDS: CETIRIZINE 10 MG TABLET PO SCH (22:24)
[2018-02-04] MEDS: PIPERACILLIN SODIUM/TAZOBACTAM 3.375 GM in NORMAL SALINE 100 ML IV SCH ×4 (00:22→17:27)
[2018-02-04] MEDS: VANCOMYCIN HCL 1,500 MG in DEXTROSE 5%-WATER 250 ML IV SCH (02:22)
[2018-02-04] MEDS: PREGABALIN 75 MG CAPSULE PO SCH ×3 (05:51→22:45)
[2018-02-04] MEDS: LEVOTHYROXINE SODIUM 0.15 MG TABLET PO SCH (05:51)
[2018-02-04] MEDS: HEPARIN SOD (PORCINE) 5,000 UNIT/ML 1 ML SYRINGE SUBCUT SCH ×3 (05:52→22:45)
[2018-02-04 06:11] LABS: HEMATOCRIT 35.4 % (37.9-51.0); HEMOGLOBIN 12.1 g/dL (13.5-17.0); MEAN CORPUSCULAR HEMOGLOBIN 30.6 pg (27.0-33.4); MEAN CORPUSCULAR HGB CONC 34.3 g/dL (32.0-36.0); MEAN CORPUSCULAR VOLUME 89 fl (80-97); PLATELET COUNT 104 10^3/uL (150-450); RED BLOOD COUNT 3.96 10^6/uL (4.35-5.55); RED CELL DISTRIBUTION WIDTH 15.4 % (11.5-14.0)
[2018-02-04] MEDS: FUROSEMIDE 20 MG TABLET PO SCH (09:52)
[2018-02-04] MEDS: POTASSIUM CHLORIDE 10 MEQ CAPSULE.ER PO SCH (09:53)
[2018-02-04] MEDS: METOPROLOL TARTRATE 50 MG TABLET PO SCH ×2 (09:53→22:42)
[2018-02-04] MEDS: FLUTICASONE NASAL SPRAY 50 MCG/SPRY 120 SPRAY/16 GM NASL SCH ×2 (09:53→23:03)
[2018-02-04] MEDS: RISPERIDONE 1 MG TABLET PO SCH (09:54)
[2018-02-04] MEDS: INSULIN DETEMIR 100 UNIT/ML 3 ML PEN SUBCUT SCH ×2 (09:54→22:48)
[2018-02-04] MEDS: BENAZEPRIL HCL 10 MG TABLET PO SCH (09:54)
[2018-02-04] MEDS: ASPIRIN 325 MG TABLET PO SCH (09:54)
[2018-02-04] MEDS: DILTIAZEM HCL 180 MG CAPSULE.CR PO SCH (09:55)
[2018-02-04] MEDS: INSULIN LISPRO 100 UNIT/ML 3 ML VIAL SUBCUT PRN ×2 (11:56→17:31)
[2018-02-04] MEDS ORDERED: FUROSEMIDE 20 MG TABLET PO SCH (12:15)
--- NOTE | 2018-02-04 12:24 | PDOC PROGRESS REPORT ---
Subjective Progress Note for:: 02/04/18 Subjective:: Still with weeping from his legs, erythema and swelling. 02/03/2018-the patient still has weeping from some areas of his lower leg. Overall there are no new complaints. 02/04/2018-the patient is somnolent at this encounter. He also has a more congested cough. Reason For Visit: CELLULITIS AFIB DIABETES Physical Exam Vital Signs: Temp Pulse Resp BP Pulse Ox 97.6 F 81 20 122/44 L 95 02/04/18 08:42 02/04/18 08:42 02/04/18 08:42 02/04/18 08:42 02/04/18 08:42 Intake & Output 02/03/18 02/04/18 02/05/18 06:59 06:59 06:59 Intake Total 2391 1652 100 Output Total 2675 2730 Balance -284 -1078 100 Weight 122.7 kg 125.8 kg General appearance: PRESENT: no acute distress, obese, well-developed, other - BMI 37 Eye exam: PRESENT: conjunctiva pink. ABSENT: scleral icterus Neck exam: ABSENT: carotid bruit, JVD, lymphadenopathy Respiratory exam: PRESENT: rales, symmetrical, unlabored, wheezes. ABSENT: chest wall tenderness Cardiovascular exam: PRESENT: RRR, +S1, +S2 GI/Abdominal exam: PRESENT: normal bowel sounds, soft. ABSENT: guarding, tenderness Extremities exam: PRESENT: pedal edema, tenderness Musculoskeletal exam: PRESENT: normal inspection Neurological exam: PRESENT: oriented to person, oriented to place, other - Somnolent today. ABSENT: alert Psychiatric exam: PRESENT: other - Somnolent today Skin exam: PRESENT: other - Excoriations with erythema both legs. Results Laboratory Results: 02/04/18 05:18 02/03/18 05:07 02/04/18 05:18 WBC 9.0 RBC 3.96 L Hgb 12.1 L Hct 35.4 L MCV 89 MCH 30.6 MCHC 34.3 RDW 15.4 H Plt Count 104 L 02/01/18 19:30 Nasophary ([facility] Only) MRSA Surveillance Culture - Final NO MRSA RECOVERED Impressions: Chest X-Ray 02/02/18 00:00 IMPRESSION: CARDIAC ENLARGEMENT. VASCULAR CONGESTION. Venous Doppler Study 02/02/18 00:00 IMPRESSION: NO EVIDENCE DVT OR SVT IN EITHER LEG. Assessment & Plan - Diagnosis (1) Cellulitis of lower extremity Qualifiers: Laterality: right Qualified Code(s): L03.115 - Cellulitis of right lower limb Is this a current diagnosis for this admission?: Yes Plan: The patient has cellulitis of both lower extremities. He is on Zosyn and vancomycin. MRSA screen is pending. If negative consider discontinuing vancomycin. There is asymmetric swelling with his right leg greater than his left. Doppler study was negative for DVT. This is possibly chronic. He still has significant erythema and drainage. Consider multilayer compression wraps. 02/03/2018-bilateral cellulitis. I will discontinue his vancomycin as the MRSA screening test was negative. We will continue the Zosyn. He still has discomfort on the legs making compression wrap therapy unreasonable. 02/04/2018-we will continue Zosyn therapy since the MRSA screen was negative. I would like to complete at least 10 days of therapy. It will also be of benefit to apply moisturizer to the patient's legs twice daily. 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 With the infection he is exhibiting some high glucose readings. He is on Humalog sliding scale. 02/03/2018-he still has elevated serum glucose levels but they seem to be slowly trending downward. There is still over 200 for the most part. I will increase his bedtime Levemir to 45 units and increase his morning Levemir to 47 units. We will continue the sliding scale coverage. 02/04/2018-just increase the Levemir yesterday. I will await 1 or 2 days and monitor the fingersticks before making additional changes. (3) Hypothyroid Qualifiers: Hypothyroidism type: unspecified Qualified Code(s): E03.9 - Hypothyroidism , unspecified Is this a current diagnosis for this admission?: Yes Plan: Continue levothyroxine at the current dose (4) CAD (coronary artery disease), [place] coronary artery Qualifiers: [place] vs. transplanted heart: [place] heart Associated angina: without angina Qualified Code(s): I25.10 - Atherosclerotic heart disease of [place] coronary artery without angina pectoris Is this a current diagnosis for this admission?: Yes Plan: Continue metoprolol, benazepril, diltiazem, furosemide and Lipitor. Because of the congested cough with rales and wheeze I have increased the furosemide to 40 mg daily. I will repeat a chest x-ray today and obtain a brain atretic peptide. - Time Time Spent with patient: 15-24 minutes Medications reviewed and adjusted accordingly: Yes
[2018-02-04] MEDS ORDERED: FUROSEMIDE 40 MG TABLET PO SCH (13:00)
--- NOTE | 2018-02-04 13:33 | RADIOLOGY REPORT (SQ) ---
EXAM DESCRIPTION: CHEST SINGLE VIEW COMPLETED DATE/TIME: 02/04/2018 1:20 pm REASON FOR STUDY: wheeze, dyspnea COMPARISON: 02/02/2018 NUMBER OF VIEWS: One view. TECHNIQUE: Single frontal radiographic view of the chest acquired. LIMITATIONS: None. FINDINGS: LUNGS AND PLEURA: No opacities, masses or pneumothorax. No pleural effusion. MEDIASTINUM AND HILAR STRUCTURES: No masses or contour abnormality. HEART AND VASCULATURE: Cardiac enlargement. Vascular congestion. BONES: No acute findings. HARDWARE: CABG hardware. OTHER: No other significant finding. IMPRESSION: CARDIAC ENLARGEMENT. VASCULAR CONGESTION. TECHNICAL DOCUMENTATION: JOB ID: [id number] [employer]- All Rights Reserved Reading location - IP/workstation name: [email or web address]
[2018-02-04] MEDS: ATORVASTATIN CALCIUM 80 MG TABLET PO SCH (22:45)
[2018-02-04] MEDS: GUAIFENESIN 600 MG TABLET.SA PO SCH (22:45)
[2018-02-04] MEDS: CETIRIZINE 10 MG TABLET PO SCH (23:03)
[2018-02-05] MEDS: PIPERACILLIN SODIUM/TAZOBACTAM 3.375 GM in NORMAL SALINE 100 ML IV SCH ×4 (06:48→17:14)
[2018-02-05] MEDS: LEVOTHYROXINE SODIUM 0.15 MG TABLET PO SCH (06:49)
[2018-02-05] MEDS: HEPARIN SOD (PORCINE) 5,000 UNIT/ML 1 ML SYRINGE SUBCUT SCH ×3 (06:49→21:38)
[2018-02-05] MEDS: PREGABALIN 75 MG CAPSULE PO SCH ×3 (06:49→21:41)
[2018-02-05 07:07] LABS: ANION GAP 11 (5-19); BLOOD UREA NITROGEN 34 mg/dL (7-20); CALCIUM 8.6 mg/dL (8.4-10.2); CARBON DIOXIDE 27 mmol/L (22-30); CHLORIDE 101 mmol/L (98-107); GLUCOSE 127 mg/dL (75-110); POTASSIUM 5.2 mmol/L (3.6-5.0)
[2018-02-05] MEDS: POTASSIUM CHLORIDE 10 MEQ CAPSULE.ER PO SCH (08:42)
[2018-02-05] MEDS: INSULIN DETEMIR 100 UNIT/ML 3 ML PEN SUBCUT SCH ×2 (08:43→21:39)
[2018-02-05] MEDS: DILTIAZEM HCL 180 MG CAPSULE.CR PO SCH (09:51)
[2018-02-05] MEDS: METOPROLOL TARTRATE 50 MG TABLET PO SCH ×2 (09:52→21:41)
[2018-02-05] MEDS: RISPERIDONE 1 MG TABLET PO SCH (09:52)
[2018-02-05] MEDS: BENAZEPRIL HCL 10 MG TABLET PO SCH (09:52)
[2018-02-05] MEDS: GUAIFENESIN 600 MG TABLET.SA PO SCH ×2 (09:52→21:40)
[2018-02-05] MEDS: ASPIRIN 325 MG TABLET PO SCH (09:53)
[2018-02-05] MEDS: FLUTICASONE NASAL SPRAY 50 MCG/SPRY 120 SPRAY/16 GM NASL SCH ×2 (09:53→21:37)
[2018-02-05] MEDS ORDERED: FUROSEMIDE 20 MG TABLET PO SCH (10:00)
[2018-02-05] MEDS: INSULIN LISPRO 100 UNIT/ML 3 ML VIAL SUBCUT PRN ×2 (11:28→17:15)
[2018-02-05] MEDS ORDERED: IPRATROPIUM/ALBUTEROL 0.5-2.5 MG/3 ML AMPUL NEB PRN (12:00)
[2018-02-05] MEDS ORDERED: VANCOMYCIN HCL 0 MG in DEXTROSE 5%-WATER 250 ML IV NR (12:00)
--- NOTE | 2018-02-05 12:30 | PDOC PROGRESS REPORT ---
Subjective Progress Note for:: 02/05/18 Subjective:: Still with weeping from his legs, erythema and swelling. 02/03/2018-the patient still has weeping from some areas of his lower leg. Overall there are no new complaints. 02/04/2018-the patient is somnolent at this encounter. He also has a more congested cough. 02/05/2018-the patient actually sounds more congested today. He is sleepy again today. Reason For Visit: CELLULITIS AFIB DIABETES Physical Exam Vital Signs: Temp Pulse Resp BP Pulse Ox 97.6 F 74 19 114/63 95 02/05/18 01:00 02/05/18 01:00 02/05/18 01:00 02/05/18 01:00 02/05/18 01:00 Intake & Output 02/04/18 02/05/18 02/06/18 06:59 06:59 06:59 Intake Total 1652 1073 100 Output Total 2730 1325 0 Balance -1078 -252 100 Weight 125.8 kg 122.2 kg General appearance: PRESENT: no acute distress, morbidly obese, well-developed Head exam: PRESENT: atraumatic, normocephalic Neck exam: ABSENT: carotid bruit, JVD, lymphadenopathy Respiratory exam: PRESENT: rhonchi, symmetrical, unlabored. ABSENT: wheezes - Bilateral Cardiovascular exam: PRESENT: irregular rhythm GI/Abdominal exam: PRESENT: distended, normal bowel sounds, soft. ABSENT: tenderness Extremities exam: PRESENT: other - Less erythema. Areas around the scabs are beginning to peel. The skin is very dry. Neurological exam: PRESENT: other - Somnolent today Skin exam: PRESENT: other - As above Results Laboratory Results: 02/04/18 05:18 02/05/18 06:29 02/05/18 06:29 Sodium 139.0 Potassium 5.2 H Chloride 101 Carbon Dioxide 27 Anion Gap 11 BUN 34 H Creatinine 3.84 H Est GFR ( Amer) 19 L Est GFR (Non-Af Amer) 16 L Glucose 127 H Calcium 8.6 Magnesium 1.9 02/05/18 06:29 NT-Pro-B Natriuret Pep 4820 H Impressions: Venous Doppler Study 02/02/18 00:00 IMPRESSION: NO EVIDENCE DVT OR SVT IN EITHER LEG. Chest X-Ray 02/04/18 00:00 IMPRESSION: CARDIAC ENLARGEMENT. VASCULAR CONGESTION. Assessment & Plan - Diagnosis (1) Atrial fibrillation Qualifiers: Atrial fibrillation type: paroxysmal Qualified Code(s): I48.0 - Paroxysmal atrial fibrillation Is this a current diagnosis for this admission?: Yes Plan: The patient had an episode of tachycardia yesterday. He was placed on telemetry. He is in atrial fibrillation. He is already on diltiazem and metoprolol. He is not on long-term anticoagulation. I will monitor and if there is no contraindication consider initiating therapy. (2) Cellulitis of lower extremity Qualifiers: Laterality: right Qualified Code(s): L03.115 - Cellulitis of right lower limb Is this a current diagnosis for this admission?: Yes Plan: The patient has cellulitis of both lower extremities. He is on Zosyn and vancomycin. MRSA screen is pending. If negative consider discontinuing vancomycin. There is asymmetric swelling with his right leg greater than his left. Doppler study was negative for DVT. This is possibly chronic. He still has significant erythema and drainage. Consider multilayer compression wraps. 02/03/2018-bilateral cellulitis. I will discontinue his vancomycin as the MRSA screening test was negative. We will continue the Zosyn. He still has discomfort on the legs making compression wrap therapy unreasonable. 02/04/2018-we will continue Zosyn therapy since the MRSA screen was negative. I would like to complete at least 10 days of therapy. It will also be of benefit to apply moisturizer to the patient's legs twice daily. 02/05/2018-the legs are improving. There is less erythema and less swelling. He is on Zosyn. I am adding vancomycin more for his pulmonary issues. May extend the Zosyn to match the vancomycin. 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 With the infection he is exhibiting some high glucose readings. He is on Humalog sliding scale. 02/03/2018-he still has elevated serum glucose levels but they seem to be slowly trending downward. There is still over 200 for the most part. I will increase his bedtime Levemir to 45 units and increase his morning Levemir to 47 units. We will continue the sliding scale coverage. 02/04/2018-just increase the Levemir yesterday. I will await 1 or 2 days and monitor the fingersticks before making additional changes. 02/05/2018-his Accu-Cheks still sore from variability but overall seems to be improving. (4) Hypothyroid Qualifiers: Hypothyroidism type: unspecified Qualified Code(s): E03.9 - Hypothyroidism , unspecified Is this a current diagnosis for this admission?: Yes Plan: Continue levothyroxine at the current dose (5) CAD (coronary artery disease), [place] coronary artery Qualifiers: [place] vs. transplanted heart: [place] heart Associated angina: without angina Qualified Code(s): I25.10 - Atherosclerotic heart disease of [place] coronary artery without angina pectoris Is this a current diagnosis for this admission?: Yes - Time Time Spent with patient: 25-34 minutes Medications reviewed and adjusted accordingly: Yes
[2018-02-05] MEDS: NORMAL SALINE 1000 ML 1,000 ML IV PRN ×2 (12:41→12:45)
[2018-02-05] MEDS ORDERED: IPRATROPIUM/ALBUTEROL 0.5-2.5 MG/3 ML AMPUL NEB SCH (14:00)
[2018-02-05] MEDS: PANTOT AC/MIN OIL/PET HY-PHL OINT 50 GM TOP SCH ×2 (14:02→17:15)
[2018-02-05] MEDS ORDERED: VANCOMYCIN HCL 1,500 MG in DEXTROSE 5%-WATER 250 ML IV SCH (16:00)
[2018-02-05] MEDS ORDERED: METHYLPREDNISOLONE INJ 125 MG/2 ML SDV IV ONE (18:45)
[2018-02-05] MEDS: IPRATROPIUM/ALBUTEROL 0.5-2.5 MG/3 ML AMPUL NEB SCH (19:56)
[2018-02-05] MEDS: CETIRIZINE 10 MG TABLET PO SCH (21:40)
[2018-02-05] MEDS: ATORVASTATIN CALCIUM 80 MG TABLET PO SCH (21:41)
[2018-02-06] MEDS: IPRATROPIUM/ALBUTEROL 0.5-2.5 MG/3 ML AMPUL NEB SCH ×5 (00:35→19:43)
[2018-02-06] MEDS: PIPERACILLIN SODIUM/TAZOBACTAM 3.375 GM in NORMAL SALINE 100 ML IV SCH ×3 (00:58→12:08)
[2018-02-06] MEDS: HEPARIN SOD (PORCINE) 5,000 UNIT/ML 1 ML SYRINGE SUBCUT SCH ×3 (06:03→22:29)
[2018-02-06] MEDS: LEVOTHYROXINE SODIUM 0.15 MG TABLET PO SCH (06:04)
[2018-02-06] MEDS: PREGABALIN 75 MG CAPSULE PO SCH ×3 (06:04→22:42)
[2018-02-06 06:35] LABS: ALBUMIN 3.4 g/dL (3.5-5.0); BLOOD UREA NITROGEN 38 mg/dL (7-20); CALCIUM 8.4 mg/dL (8.4-10.2); GLUCOSE 303 mg/dL (75-110); PHOSPHORUS 6.5 mg/dL (2.5-4.5); POTASSIUM 4.9 mmol/L (3.6-5.0)
[2018-02-06 06:40] LABS: CHLORIDE 95 mmol/L (98-107); SODIUM 132.6 mmol/L (137-145)
[2018-02-06 06:48] LABS: CARBON DIOXIDE 16 mmol/L (22-30)
[2018-02-06 06:49] LABS: ANION GAP 22 (5-19)
--- NOTE | 2018-02-06 07:33 | RADIOLOGY REPORT (SQ) ---
EXAM DESCRIPTION: XR CHEST 1 VIEW COMPLETED DATE/TME: 02/06/2018 06:00 CLINICAL HISTORY: 63 years, Male, Increasing dyspnea COMPARISON: EXAM DESCRIPTION: CLINICAL HISTORY: Increasing dyspnea COMPARISON: 02/04/2018 FINDINGS: Single view of the chest is submitted. Cardiac silhouette is enlarged. There is mild pulmonary edema, unchanged. No dense consolidation. IMPRESSION: Persistent cardiomegaly.
[2018-02-06] MEDS: INSULIN LISPRO 100 UNIT/ML 3 ML VIAL SUBCUT PRN ×4 (08:14→22:44)
[2018-02-06] MEDS: INSULIN DETEMIR 100 UNIT/ML 3 ML PEN SUBCUT SCH ×2 (08:15→22:43)
[2018-02-06] MEDS: METOPROLOL TARTRATE 50 MG TABLET PO SCH ×2 (10:39→22:42)
[2018-02-06] MEDS: ASPIRIN 325 MG TABLET PO SCH (10:39)
[2018-02-06] MEDS: DILTIAZEM HCL 180 MG CAPSULE.CR PO SCH (10:40)
[2018-02-06] MEDS: PANTOT AC/MIN OIL/PET HY-PHL OINT 50 GM TOP SCH ×3 (10:40→17:12)
[2018-02-06] MEDS: GUAIFENESIN 600 MG TABLET.SA PO SCH ×2 (10:40→22:42)
[2018-02-06] MEDS: FLUTICASONE NASAL SPRAY 50 MCG/SPRY 120 SPRAY/16 GM NASL SCH ×2 (10:41→22:43)
[2018-02-06] MEDS: RISPERIDONE 1 MG TABLET PO SCH (10:41)
--- NOTE | 2018-02-06 11:44 | PDOC PROGRESS REPORT ---
Subjective Progress Note for:: 02/06/18 Subjective:: Still with weeping from his legs, erythema and swelling. 02/03/2018-the patient still has weeping from some areas of his lower leg. Overall there are no new complaints. 02/04/2018-the patient is somnolent at this encounter. He also has a more congested cough. 02/05/2018-the patient actually sounds more congested today. He is sleepy again today. 02/06/2018-the patient is still very congested. He has a gurgly cough. He has not become hypoxic. He is still complaining of food getting stuck in his throat. He continues to complain about coughing when swallowing. Reason For Visit: VENOUS STASIS,CELLULITIS Physical Exam Vital Signs: Temp Pulse Resp BP Pulse Ox 97.8 F 80 16 124/66 93 02/06/18 09:00 02/06/18 09:00 02/06/18 09:00 02/06/18 09:00 02/06/18 09:00 Pulse Oximeter Continuous Start: 02/05/18 18: 33 Freq: RTQ4 Status: Active Document 02/06/18 04:30 SFL (Rec: 02/06/18 04:41 SFL [id number]) Pulse Oximetry Assessment Oxygen Saturation (92-100) 93 Oxygen Delivery Method Room Air Fraction of Inspired Oxygen (FIO2) 21 Equipment Usage Equipment in Use Continuous SpO2 Machine # 6 Intake & Output 02/05/18 02/06/18 02/07/18 06:59 06:59 06:59 Intake Total 1073 3178 Output Total 1325 600 Balance -252 2578 Weight 122.2 kg 127.7 kg General appearance: PRESENT: mild distress, morbidly obese, well-developed Eye exam: PRESENT: conjunctiva pink. ABSENT: scleral icterus Mouth exam: PRESENT: moist, tongue midline Neck exam: ABSENT: carotid bruit, lymphadenopathy Respiratory exam: PRESENT: rhonchi, symmetrical, other - Very congested cough Cardiovascular exam: PRESENT: irregular rhythm, +S1, +S2 GI/Abdominal exam: PRESENT: normal bowel sounds, soft. ABSENT: tenderness Extremities exam: PRESENT: +1 edema Neurological exam: PRESENT: alert, awake, oriented to person, oriented to place , other - Dysarthria chronic Psychiatric exam: PRESENT: normal mood. ABSENT: agitated Skin exam: PRESENT: other - Excoriations both legs Results Laboratory Results: 02/04/18 05:18 02/06/18 05:35 02/06/18 05:35 Sodium 132.6 L Potassium 4.9 Chloride 95 L Carbon Dioxide 16 L D Anion Gap 22 H BUN 38 H Creatinine 5.01 H Est GFR ( Amer) 14 L Est GFR (Non-Af Amer) 12 L Glucose 303 H Calcium 8.4 Phosphorus 6.5 H Magnesium 1.7 Albumin 3.4 L 02/05/18 06:29 NT-Pro-B Natriuret Pep 4820 H Impressions: Venous Doppler Study 02/02/18 00:00 IMPRESSION: NO EVIDENCE DVT OR SVT IN EITHER LEG. Chest X-Ray 02/06/18 06:00 IMPRESSION: Persistent cardiomegaly. Assessment & Plan - Diagnosis (1) Atrial fibrillation Qualifiers: Atrial fibrillation type: paroxysmal Qualified Code(s): I48.0 - Paroxysmal atrial fibrillation Is this a current diagnosis for this admission?: Yes Plan: The patient had an episode of tachycardia yesterday. He was placed on telemetry. He is in atrial fibrillation. He is already on diltiazem and metoprolol. He is not on long-term anticoagulation. I will monitor and if there is no contraindication consider initiating therapy. 02/06/2018-the patient is still in A. fib. I am going to add Eliquis. I will discontinue his subcutaneous heparin tomorrow. We will need to monitor his rate. I am lowering his diltiazem dose in order to administer more furosemide. (2) Cellulitis of lower extremity Qualifiers: Laterality: right Qualified Code(s): L03.115 - Cellulitis of right lower limb Is this a current diagnosis for this admission?: Yes Plan: The patient has cellulitis of both lower extremities. He is on Zosyn and vancomycin. MRSA screen is pending. If negative consider discontinuing vancomycin. There is asymmetric swelling with his right leg greater than his left. Doppler study was negative for DVT. This is possibly chronic. He still has significant erythema and drainage. Consider multilayer compression wraps. 02/03/2018-bilateral cellulitis. I will discontinue his vancomycin as the MRSA screening test was negative. We will continue the Zosyn. He still has discomfort on the legs making compression wrap therapy unreasonable. 02/04/2018-we will continue Zosyn therapy since the MRSA screen was negative. I would like to complete at least 10 days of therapy. It will also be of benefit to apply moisturizer to the patient's legs twice daily. 02/05/2018-the legs are improving. There is less erythema and less swelling. He is on Zosyn. I am adding vancomycin more for his pulmonary issues. May extend the Zosyn to match the vancomycin. 02/06/2018-continued improvement. Continue vancomycin and Zosyn. (3) Diabetes Qualifiers: Diabetes mellitus type: type 2 Diabetes mellitus intermediate school teacher insulin use: unspecified intermediate school teacher insulin use status Diabetes mellitus complication status : without complication Qualified Code(s): E11.9 - Type 2 diabetes mellitus without complications Is this a current diagnosis for this admission?: Yes Plan: We will continue his insulin therapy. With the infection he is exhibiting some high glucose readings. He is on Humalog sliding scale. 02/03/2018-he still has elevated serum glucose levels but they seem to be slowly trending downward. There is still over 200 for the most part. I will increase his bedtime Levemir to 45 units and increase his morning Levemir to 47 units. We will continue the sliding scale coverage. 02/04/2018-just increase the Levemir yesterday. I will await 1 or 2 days and monitor the fingersticks before making additional changes. 02/05/2018-his Accu-Cheks still sore from variability but overall seems to be improving. 02/06/2018-the patient's glucose was high this morning. He did receive a dose of Solu-Medrol last night. I am going to place him on prednisone 20 mg daily for pulmonary reasons. I believe his current Lantus dose unchanged and monitor the sliding scale. His glucose should decrease with the decreased steroid dose. (4) Hypothyroid Qualifiers: Hypothyroidism type: unspecified Qualified Code(s): E03.9 - Hypothyroidism , unspecified Is this a current diagnosis for this admission?: Yes Plan: Continue levothyroxine at the current dose (5) CAD (coronary artery disease), [place] coronary artery Qualifiers: [place] vs. transplanted heart: [place] heart Associated angina: without angina Qualified Code(s): I25.10 - Atherosclerotic heart disease of [place] coronary artery without angina pectoris Is this a current diagnosis for this admission?: Yes Plan: Continue metoprolol, benazepril, diltiazem, furosemide and Lipitor. Because of the congested cough with rales and wheeze I have increased the furosemide to 40 mg daily. I will repeat a chest x-ray today and obtain a brain natriuretic peptide. 02/06/2018-the patient's blood pressure has been low intermittently. His brain natruretic peptide is high. I am going to decrease his diltiazem dose in order to administer more Lasix. If his rate increases so we will consider increasing his metoprolol. - Time Time Spent with patient: 25-34 minutes Medications reviewed and adjusted accordingly: Yes - Plan Summary Plan Summary: As above
[2018-02-06] MEDS ORDERED: DILTIAZEM HCL 180 MG CAPSULE.CR PO SCH (12:00)
[2018-02-06] MEDS: SEVELAMER HCL 800 MG TABLET PO SCH ×2 (12:08→17:09)
[2018-02-06] MEDS: PIPERACILLIN SODIUM/TAZOBACTAM 2.25 GM in NORMAL SALINE 50 ML IV SCH ×2 (17:09→23:23)
[2018-02-06] MEDS: APIXABAN 5 MG TABLET PO SCH (17:10)
[2018-02-06] MEDS: FUROSEMIDE 20 MG TABLET PO SCH (17:11)
[2018-02-06] MEDS ORDERED: INSULIN LISPRO 100 UNIT/ML 3 ML VIAL SUBCUT ONE ×2 (17:15→22:45)
[2018-02-06] MEDS: ATORVASTATIN CALCIUM 80 MG TABLET PO SCH (22:42)
[2018-02-06] MEDS: CETIRIZINE 10 MG TABLET PO SCH (22:43)
[2018-02-07] MEDS: IPRATROPIUM/ALBUTEROL 0.5-2.5 MG/3 ML AMPUL NEB SCH ×4 (02:53→19:40)
[2018-02-07] MEDS: PIPERACILLIN SODIUM/TAZOBACTAM 2.25 GM in NORMAL SALINE 50 ML IV SCH ×3 (05:38→17:54)
[2018-02-07] MEDS: PREGABALIN 75 MG CAPSULE PO SCH ×3 (05:39→23:31)
[2018-02-07] MEDS: LEVOTHYROXINE SODIUM 0.15 MG TABLET PO SCH (05:39)
[2018-02-07 06:19] LABS: HEMATOCRIT 35.7 % (37.9-51.0); HEMOGLOBIN 12.2 g/dL (13.5-17.0); MEAN CORPUSCULAR HEMOGLOBIN 30.5 pg (27.0-33.4); MEAN CORPUSCULAR HGB CONC 34.2 g/dL (32.0-36.0); MEAN CORPUSCULAR VOLUME 89 fl (80-97); RED CELL DISTRIBUTION WIDTH 15.5 % (11.5-14.0); WHITE BLOOD COUNT 15.9 10^3/uL (4.0-10.5)
[2018-02-07 06:22] LABS: PLATELET COUNT 90 10^3/uL (150-450)
[2018-02-07 06:37] LABS: ALBUMIN 3.8 g/dL (3.5-5.0); BLOOD UREA NITROGEN 58 mg/dL (7-20); CALCIUM 8.3 mg/dL (8.4-10.2); CHLORIDE 92 mmol/L (98-107); GLUCOSE 279 mg/dL (75-110); PHOSPHORUS 7.2 mg/dL (2.5-4.5); POTASSIUM 5.8 mmol/L (3.6-5.0)
[2018-02-07 06:43] LABS: CARBON DIOXIDE 16 mmol/L (22-30); SODIUM 130.9 mmol/L (137-145)
[2018-02-07 06:45] LABS: ANION GAP 23 (5-19)
[2018-02-07] MEDS: INSULIN DETEMIR 100 UNIT/ML 3 ML PEN SUBCUT SCH ×2 (08:47→23:33)
--- NOTE | 2018-02-07 09:49 | RADIOLOGY REPORT (SQ) ---
EXAM DESCRIPTION: JOSE DAVID SWALLOW COMPLETED DATE/TIME: 02/07/2018 9:35 am REASON FOR STUDY: aspiration COMPARISON: None. TECHNIQUE: Videofluoroscopic swallowing examination was performed in conjunction with speech patholo gy. Videofluoroscopic imaging was obtained and reviewed and these are the findings: RADIATION DOSE: Fluoro time 3.9 minutes 2 images saved to PACS. LIMITATIONS: None FINDINGS: The patient was brought into the fluoro room and placed upright on a modified barium swall ow chair. The patient was then given multiple consistencies mixed with barium to swallow under live fluoroscopic video guidance. According to the Speech Pathologist there was laryngeal penetration wit h thin and nectar thick consistencies. Eventual trace aspiration was seen from residuals. Pureed co nsistency was swallowed without incident. Significant residuals were seen in the vallecula with poor clearing due to lack of epiglottic inversion. Please refer to the speech pathology report for furthe r details. IMPRESSION: LARYNGEAL PENETRATION WITH THIN AND NECTAR THICK CONSISTENCIES. TRACHEAL ASPIRATION SEE N FROM RESIDUALS.PLEASE SEE SPEECH PATHOLOGIST REPORT FOR OTHER FINDINGS AND RECOMMENDATIONS. COMMENT: None Quality ID [id number]: Final reports for procedures using fluoroscopy that document radiation exposure laya yareli, or exposure time and number of fluorographic images (if radiation exposure indices are not avail able) TECHNICAL DOCUMENTATION: JOB ID: [id number] [employer]- All Rights Reserved Reading location - IP/workstation name: [email or web address] [id number]
--- NOTE | 2018-02-07 09:55 | ST Inp Modified Barium Swallow ---
Medical Diagnosis - Medical Diagnoses Medical Diagnosis Description & ICD-10 Code(s): atrial fibrillation, dysphagia ST Inpatient [facility] – [place] - General Date: 02/07/18 Date of Onset: 01/31/18 - ongoing problem, no onset date given from patient - History History Obtained From: Patient, Other - EMR Medications: Medications Reviewed Allergies: No known allergies - Subjective Current Nutritional Means: PO Current PO Diet: Mechanical - cut, Thickened liquids Current Symptoms: Coughing, c/o Globus sensation Pain: Patient reports, 0/5 - Objective Assessment: Upright, Left Lateral - Food Trials Food Trials Used: Thin liquids, [place] thick liquids, Pureed, Regular The Patient: Was Able to Self Feed - Assessment Labial Function: Within Normal Limits Lingual Function: Within Normal Limits Mandibular Function: Within Normal Limits Dentition: Edentulous Velo-Pharyngeal Function: Unremarkable Laryngeal Function: Volitional Cough - WNL, Volitional Swallow - WNL - Pharyngeal Stage Initiation of Pharyngeal Stage: Normal Decreased Laryngeal Elevation: No Reduced Velo-Pharyngeal Closure: no Reduced Pressure Generation: No Pre-Swallowing Pooling in Valleculae: Significant Pre-Swallowing Pooling in Pyriforms: None Reduced Thyro-Hyiod Approximation: No Reduced Epiglottic Excursion: Yes - significant Reduced Pharyngeal Peristalsis: No Multiple Swallows With: Ineffective Clearance Post Swallow Residuals in Valleculae: Significant Post Swallow Residuals in Pyriforms: Mild - Esophageal Stage Esophageal Stage Comments: material was seen to move up from esophagus through the UES into pharynx, this material was then suspected to be aspirated - Impression/Summary Laryngeal Penetration: Yes, Deep, Silent, during swallow, after swallow Tracheal Aspiration: yes, silent, during swallow, after swallow Compensatory Strategies: attempted hard swallow, throat clear and re-swallow, and chin tuck strategies to reduce residue in valleculae, none cleared residue. Liquid wash partially cleared residue. Patient Presents With: Pharyngeal stage dysph., Severe, s/s reflux Risk of Aspiration: Moderate Risk of Nutritional Compromise: Mild - Recommendations Solid Diet Recommendations: Mechanical Soft, Ground Meat Liquid Diet Recommendations: [place]-Thick Strict Aspitarion Precautions: Yes Dysphagia Therapy with INSULATION CUPOLA OPERATOR: Yes, Home Health Recommended Techniques: Fully Upright During Meal, Med Crushed in Applesauce, Small Bites and Sips, Alternate Bites/Sips Other Recommendations: Patient was seen to penetrate and aspirate on thin liquids, also seen to aspirate residuals from other trials. Some penetration seen with nectar thick liquids, but not reaching the vocal folds and able to redirect. Significant residuals seen in valleculae as texture increased due to reduced epiglottic inversion. Safest diet is judged to be nectar thick liquids and mechanical soft, ground meats. However, due to reduced epiglottic inversion , the paitent is still at risk of aspiration due to limited airway protection and risk of residue being aspirated. Discussed findings with physician, who voiced understanding. Diet downgraded to ground meats. Recommend follow up 1-2 times per week to address adherence to swallowing recommendations and dysphagia exercises. - Time Total Time: 30 Total Timed Minutes: 30
[2018-02-07] MEDS ORDERED: DILTIAZEM HCL 120 MG CAP.SR.24H PO SCH (10:00)
[2018-02-07] MEDS: SEVELAMER HCL 800 MG TABLET PO SCH ×2 (11:26→12:03)
[2018-02-07] MEDS: PANTOT AC/MIN OIL/PET HY-PHL OINT 50 GM TOP SCH ×3 (12:01→17:54)
[2018-02-07] MEDS: PREDNISONE 20 MG TABLET PO SCH (12:02)
[2018-02-07] MEDS: RISPERIDONE 1 MG TABLET PO SCH (12:02)
[2018-02-07] MEDS: ASPIRIN 325 MG TABLET PO SCH (12:02)
[2018-02-07] MEDS: APIXABAN 5 MG TABLET PO SCH ×2 (12:03→17:54)
[2018-02-07] MEDS: FLUTICASONE NASAL SPRAY 50 MCG/SPRY 120 SPRAY/16 GM NASL SCH ×2 (12:03→23:31)
[2018-02-07] MEDS: GUAIFENESIN 600 MG TABLET.SA PO SCH (12:03)
[2018-02-07] MEDS: FUROSEMIDE 20 MG TABLET PO SCH ×2 (12:03→17:54)
[2018-02-07] MEDS: METOPROLOL TARTRATE 50 MG TABLET PO SCH ×2 (12:03→23:38)
[2018-02-07] MEDS ORDERED: GUAIFENESIN SYRP 200 MG/10 ML UDC PO PRN (12:17)
--- NOTE | 2018-02-07 13:10 | PSYCHOLOGICAL NOTE ---
Psych Note - Psych Note Psych Note: Reason for Consult: Capacity SALBADOR AVILES is a 63 year old male with a past medical history of atrial fibrillation, systolic heart failure, COPD, developmental delay, peripheral vascular disease and debility. He presents with 3 days of bilateral lower extremity swelling and pain complicated by a severely scarred posttraumatic left lower extremity. Psychiatry was asked to consult the Patient for a capacity evaluation given concern for patients ability to make medical decisions on his own. The role of a capacity evaluation is to assess and measure a Patients abstract/rational level of thinking, executive functioning/planning/sequencing, executive functioning/switching, attention, orientation, safety/problem solving, memory, and ability to complete daily living activities. Chart review conducted Patient had a capacity conducted on 12/20/2015 because of concerns on if the patient could live alone. The following impression/plan is from that capacity. Impression/Plan: Patients results suggest poor planning, organizational skills, impulsivity, thinking and processing which affects his ability to live independently and care for himself safely. Patient demonstrated poor orientation, planning, memory and recall, abstract thinking, and impaired processing. The 12/19/[address] findings indicated: No significant findings. Given the lack of findings from the head CT and his degree of incorrect responses on the capacity screening it is possible patient has an Intellectual Developmental Disorder (IDD). Problem solving and safety issues are of concern given his concrete versus abstract thinking deficit. Thus, Patient is considered a safety risk especially when living at home alone. In addition, given his poor attention to detail, impaired problem solving, poor general knowledge orientation, the likelihood of the Patient placing himself in a compromised position with the inability to help himself, is likely. Patient will require assistance to manage his daily and personal affairs and will not be able to safely live in an unsupervised situation. Patients cognitive deficits are long standing in nature and his judgement, insight, physical capabilities, impulsivity, reasoning, and cognition will remain impaired. As such, Patient is not felt to be capable of making medical, legal, financial, and personal decisions that are in his best interest, particularly given his lack of insight into his medical history. If his sister is not willing or able to take guardianship, then DSS/APS involvement is suggested for guardianship. Ultimately, patient needs a 24-hour, supervised, structured living environment, and a guardian to represent his financial, legal, medical, and personal matters. Consulted with Dr. De La Cruz regarding this capacity evaluation and she is in agreement with the findings and recommendations. DIAGNOSES: 1. R/O 319 (F79) Unspecified Intellectual Disability (Intellectual Developmental Disorder). RECOMMENDATIONS: 1. Guardian to represent the Patients medical, legal, financial and personal matters is recommended. 2. Follow up with psychological testing to further make IDD determination. 3. Follow up with outpatient psychiatric provider for medication management. 4. Patient requires living in a 24 hour, supervised, structured living environment. 5. Driving recommendation: Driving re-evaluation is recommended given Patients attentional and processing speed deficits. He is currently considered to be a safety risk because of the identified deficits and the attending physician is asked to consider sending a letter to the State requesting his driving privileges be revoked.
--- NOTE | 2018-02-07 13:22 | PDOC PROGRESS REPORT ---
Subjective Progress Note for:: 02/07/18 Subjective:: Still with weeping from his legs, erythema and swelling. 02/03/2018-the patient still has weeping from some areas of his lower leg. Overall there are no new complaints. 02/04/2018-the patient is somnolent at this encounter. He also has a more congested cough. 02/05/2018-the patient actually sounds more congested today. He is sleepy again today. 02/06/2018-the patient is still very congested. He has a gurgly cough. He has not become hypoxic. He is still complaining of food getting stuck in his throat. He continues to complain about coughing when swallowing. 02/07/2018-the patient is slightly better today. He did have a modified barium swallow. He still feels poorly. New acute kidney injury is now present. The patient is also developed diarrhea. This is been over the last 2-3 days. He was constipated and this could be secondary to aggressive bowel regimen. Reason For Visit: VENOUS STASIS,CELLULITIS Physical Exam Vital Signs: Temp Pulse Resp BP Pulse Ox 97.5 F 93 18 131/71 H 91 L 02/07/18 11:53 02/07/18 11:53 02/07/18 11:53 02/07/18 11:53 02/07/18 11:53 Pulse Oximeter Continuous Start: 02/05/18 18: 33 Freq: RTQ4 Status: Active Document 02/07/18 11:52 HCR (Rec: 02/07/18 11:52 HCR [id number]) Pulse Oximetry Assessment Oxygen Saturation (92-100) 92 Oxygen Delivery Method Room Air Fraction of Inspired Oxygen (FIO2) 21 Equipment Usage Equipment in Use Continuous SpO2 Machine # 6 Intake & Output 02/06/18 02/07/18 02/08/18 06:59 06:59 06:59 Intake Total 3178 730 Output Total 600 Balance 2578 730 Weight 127.7 kg 127.7 kg General appearance: PRESENT: cooperative, mild distress, morbidly obese - BMI 38.2, well-developed Mouth exam: PRESENT: moist, tongue midline Respiratory exam: PRESENT: rales - Still with congested breath sounds, symmetrical. ABSENT: accessory muscle use, crackles, prolonged expiratory phas , unlabored, wheezes Cardiovascular exam: PRESENT: RRR, +S1, +S2 GI/Abdominal exam: PRESENT: distended - Protuberant abdomen, normal bowel sounds , soft. ABSENT: tenderness Neurological exam: PRESENT: alert, awake, oriented to person, oriented to place , oriented to situation Psychiatric exam: PRESENT: flat affect. ABSENT: agitated, anxious Focused psych exam: ABSENT: restlessness Skin exam: PRESENT: other - Excoriations on legs continue to heal. Results Laboratory Results: 02/07/18 06:01 02/07/18 06:01 02/07/18 02/07/18 06:01 06:01 WBC 15.9 H RBC 4.00 L Hgb 12.2 L Hct 35.7 L MCV 89 MCH 30.5 MCHC 34.2 RDW 15.5 H Plt Count 90 L Sodium 130.9 L Potassium 5.8 H Chloride 92 L Carbon Dioxide 16 L Anion Gap 23 H BUN 58 H Creatinine 6.58 H Est GFR ( Amer) 10 L Est GFR (Non-Af Amer) 9 L Glucose 279 H Calcium 8.3 L Phosphorus 7.2 H Magnesium 1.8 Albumin 3.8 02/05/18 06:29 NT-Pro-B Natriuret Pep 4820 H Impressions: Venous Doppler Study 02/02/18 00:00 IMPRESSION: NO EVIDENCE DVT OR SVT IN EITHER LEG. Chest X-Ray 02/06/18 06:00 IMPRESSION: Persistent cardiomegaly. Modified Barium Swallow 02/07/18 00:00 IMPRESSION: LARYNGEAL PENETRATION WITH THIN AND NECTAR THICK CONSISTENCIES. TRACHEAL ASPIRATION SEEN FROM RESIDUALS.PLEASE SEE SPEECH PATHOLOGIST REPORT FOR OTHER FINDINGS AND RECOMMENDATIONS. Assessment & Plan - Diagnosis (1) Acute kidney failure Qualifiers: Acute renal failure type: unspecified Qualified Code(s): N17.9 - Acute kidney failure, unspecified Is this a current diagnosis for this admission?: Yes Plan: 02/07/2018-the serum creatinine was increasing. I did give the patient some fluids to compensate. Unfortunately the serum creatinine almost doubled today. It is greater than 6.0. Nephrology will be seeing the patient. I have discontinued the vancomycin. I await nephrology suggestions for ongoing treatment plan. (2) Aspiration into airway Qualifiers: Encounter type: initial encounter Qualified Code(s): T17.908A - Unspecified foreign body in respiratory tract, part unspecified causing other injury, initial encounter Is this a current diagnosis for this admission?: Yes Plan: 02/07/2018-the patient has had a congested cough. He recognized that he was coughing when he ate. This did not significantly improve during his stay. Modified barium swallow was obtained today which showed namrata aspiration, significant reflux and pooling in the vallecula. I will ask GI to see the patient for esophagogastroscopy. Speech therapy has made dietary changes to compensate for his compromised swallow. We will also obtain a CT scan for the soft tissues in the neck to rule out any anatomical issues that might be compromising his swallow. (3) Atrial fibrillation Qualifiers: Atrial fibrillation type: paroxysmal Qualified Code(s): I48.0 - Paroxysmal atrial fibrillation Is this a current diagnosis for this admission?: Yes Plan: The patient had an episode of tachycardia yesterday. He was placed on telemetry. He is in atrial fibrillation. He is already on diltiazem and metoprolol. He is not on long-term anticoagulation. I will monitor and if there is no contraindication consider initiating therapy. 02/06/2018-the patient is still in A. fib. I am going to add Eliquis. I will discontinue his subcutaneous heparin tomorrow. We will need to monitor his rate. I am lowering his diltiazem dose in order to administer more furosemide. Because of the ongoing atrial fibrillation I did add Eliquis. I will discontinue his subcutaneous heparin. If he needs a gastroscopy we will need to hold the Eliquis before hand. (4) Cellulitis of lower extremity Qualifiers: Laterality: right Qualified Code(s): L03.115 - Cellulitis of right lower limb Is this a current diagnosis for this admission?: Yes Plan: The patient has cellulitis of both lower extremities. He is on Zosyn and vancomycin. MRSA screen is pending. If negative consider discontinuing vancomycin. There is asymmetric swelling with his right leg greater than his left. Doppler study was negative for DVT. This is possibly chronic. He still has significant erythema and drainage. Consider multilayer compression wraps. 02/03/2018-bilateral cellulitis. I will discontinue his vancomycin as the MRSA screening test was negative. We will continue the Zosyn. He still has discomfort on the legs making compression wrap therapy unreasonable. 02/04/2018-we will continue Zosyn therapy since the MRSA screen was negative. I would like to complete at least 10 days of therapy. It will also be of benefit to apply moisturizer to the patient's legs twice daily. 02/05/2018-the legs are improving. There is less erythema and less swelling. He is on Zosyn. I am adding vancomycin more for his pulmonary issues. May extend the Zosyn to match the vancomycin. 02/06/2018-continued improvement. Continue vancomycin and Zosyn. 02/07/2018-we will continue the Zosyn. The patient's acute kidney injury has forced me to discontinue the vancomycin completely. I will check levels. Resume when appropriate. I will also adjust the Zosyn. (5) Diabetes Qualifiers: Diabetes mellitus type: type 2 Diabetes mellitus longterm insulin use: unspecified longterm insulin use status Diabetes mellitus complication status : without complication Qualified Code(s): E11.9 - Type 2 diabetes mellitus without complications Is this a current diagnosis for this admission?: Yes Plan: We will continue his insulin therapy. With the infection he is exhibiting some high glucose readings. He is on Humalog sliding scale. 02/03/2018-he still has elevated serum glucose levels but they seem to be slowly trending downward. There is still over 200 for the most part. I will increase his bedtime Levemir to 45 units and increase his morning Levemir to 47 units. We will continue the sliding scale coverage. 02/04/2018-just increase the Levemir yesterday. I will await 1 or 2 days and monitor the fingersticks before making additional changes. 02/05/2018-his Accu-Cheks still sore from variability but overall seems to be improving. 02/06/2018-the patient's glucose was high this morning. He did receive a dose of Solu-Medrol last night. I am going to place him on prednisone 20 mg daily for pulmonary reasons. I believe his current Lantus dose unchanged and monitor the sliding scale. His glucose should decrease with the decreased steroid dose. 02/07/2018-the Levemir is now 55 units in the morning and 45 units at night. He is still having elevated glucose readings. I will make slow adjustments based on the Humalog sliding scale requirements. (6) Hypothyroid Qualifiers: Hypothyroidism type: unspecified Qualified Code(s): E03.9 - Hypothyroidism , unspecified Is this a current diagnosis for this admission?: Yes Plan: Continue levothyroxine at the current dose (7) CAD (coronary artery disease), [place] coronary artery Qualifiers: [place] vs. transplanted heart: [place] heart Associated angina: without angina Qualified Code(s): I25.10 - Atherosclerotic heart disease of [place] coronary artery without angina pectoris Is this a current diagnosis for this admission?: Yes Plan: Continue metoprolol, benazepril, diltiazem, furosemide and Lipitor. Because of the congested cough with rales and wheeze I have increased the furosemide to 40 mg daily. I will repeat a chest x-ray today and obtain a brain natriuretic peptide. 02/06/2018-the patient's blood pressure has been low intermittently. His brain natruretic peptide is high. I am going to decrease his diltiazem dose in order to administer more Lasix. If his rate increases so we will consider increasing his metoprolol. 02/07/2018-I did decrease the diltiazem to 120 mg daily. This will be changed to 30 mg every 6 hours because of his aspiration. His blood pressure and pulse have remained reasonably controlled. - Time Time Spent with patient: 25-34 minutes Medications reviewed and adjusted accordingly: Yes
[2018-02-07 13:35] LABS: VANCOMYCIN,TROUGH 36.4 ug/mL (5.0-20.0)
[2018-02-07] MEDS: LOPERAMIDE HCL 2 MG CAPSULE PO PRN (13:57)
[2018-02-07] MEDS: INSULIN LISPRO 100 UNIT/ML 3 ML VIAL SUBCUT PRN ×3 (14:00→23:33)
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
--- NOTE | 2018-02-07 14:59 | RADIOLOGY REPORT (SQ) ---
EXAM DESCRIPTION: CT SOFT TISSUE NECK WITHOUT COMPLETED DATE/TIME: 02/07/2018 2:29 pm REASON FOR STUDY: Marked aspiration. Non-contrast/kidney injury COMPARISON: None. TECHNIQUE: Noncontrast scanning from skull base through lung apices with review of bone, soft tissue and lung windows. Reconstructed coronal and sagittal MPR images reviewed. All images stored on PAC S. All CT scanners at this facility use dose modulation, iterative reconstruction, and/or weight based d osing when appropriate to reduce radiation dose to as low as reasonably achievable (ALARA). [facility]: Dose Right [facility]: CareDose [facility]: Dose Right [facility]: Teradose 4D [facility]: Formarum RADIATION DOSE: mGy. LIMITATIONS: None. FINDINGS: SKULL BASE: Intact. MAJOR SALIVARY GLANDS: No solid or cystic masses. No inflammatory changes. LYMPHADENOPATHY: No adenopathy. MUCOSAL MASSES OR ASYMMETRY: No mucosal masses or asymmetry. LARYNX/CORDS: No abnormal findings. LUNG APICES: Patchy ground-glass opacities in the upper lobes, right greater than left. BONES: Intact. THYROID: Normal size. No masses. PARANASAL SINUSES: Prominent mucous membrane thickening in the maxillary sinuses. OTHER: No other significant finding. IMPRESSION: 1. NO SIGNIFICANT FINDING IN THE SOFT TISSUES OF THE NECK. 2. MAXILLARY SINUS DISEASE. 3. PATCHY GROUND-GLASS OPACITIES IN THE UPPER LOBES, RIGHT GREATER THAN LEFT. MAY BE DUE TO ATELECTA SIS, INFLAMMATION, OR INFECTION. TECHNICAL DOCUMENTATION: JOB ID: [id number] Quality ID # [id number]: Final reports with documentation of one or more dose reduction techniques (e.g., Au tomated exposure control, adjustment of the mA and/or kV according to patient size, use of iterative reconstruction technique) 2010 [employer]- All Rights Reserved Reading location - IP/workstation name: [email or web address]
[2018-02-07] MEDS ORDERED: VANCOMYCIN HCL 1,500 MG in DEXTROSE 5%-WATER 250 ML IV SCH (16:00)
[2018-02-07] MEDS: LACTOBACILLUS ACIDOPHILUS 250 MG TAB PO SCH (17:54)
[2018-02-07] MEDS: DILTIAZEM HCL 30 MG TABLET PO SCH ×2 (17:54→23:32)
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
--- NOTE | 2018-02-07 19:12 | RADIOLOGY REPORT (SQ) ---
EXAM DESCRIPTION: U/S RETROPERITON (RENAL/AORTA) COMPLETED DATE/TIME: 02/07/2018 6:49 pm REASON FOR STUDY: RODRICK COMPARISON: None. TECHNIQUE: Dynamic and static grayscale images acquired of the kidneys and bladder and recorded on P ACS. Additional selected color Doppler and spectral images recorded. LIMITATIONS: Study is limited somewhat due to the patient's body habitus. FINDINGS: RIGHT KIDNEY: 15 cm in length. Increased cortical echogenicity. No solid or suspicious mas ses. No hydronephrosis. No calcifications. LEFT KIDNEY: 13.6 cm in length. Increased cortical echogenicity. No solid or suspicious masses. No h ydronephrosis. No calcifications. BLADDER: No masses. OTHER: No other significant finding. IMPRESSION: CHRONIC MEDICAL RENAL DISEASE. NO HYDRONEPHROSIS. TECHNICAL DOCUMENTATION: JOB ID: [id number]- All Rights Reserved Reading location - IP/workstation name: [email or web address]
[2018-02-07] MEDS: ATORVASTATIN CALCIUM 80 MG TABLET PO SCH (23:32)
[2018-02-07] MEDS: CETIRIZINE 10 MG TABLET PO SCH (23:32)
[2018-02-08] MEDS: PIPERACILLIN SODIUM/TAZOBACTAM 2.25 GM in NORMAL SALINE 50 ML IV SCH ×3 (00:59→18:31)
[2018-02-08] MEDS: IPRATROPIUM/ALBUTEROL 0.5-2.5 MG/3 ML AMPUL NEB SCH ×4 (02:21→19:56)
[2018-02-08 05:22] LABS: HEMATOCRIT 34.9 % (37.9-51.0); HEMOGLOBIN 12.1 g/dL (13.5-17.0); MEAN CORPUSCULAR HEMOGLOBIN 30.9 pg (27.0-33.4); MEAN CORPUSCULAR HGB CONC 34.7 g/dL (32.0-36.0); MEAN CORPUSCULAR VOLUME 89 fl (80-97); RED BLOOD COUNT 3.92 10^6/uL (4.35-5.55); RED CELL DISTRIBUTION WIDTH 15.3 % (11.5-14.0); WHITE BLOOD COUNT 17.8 10^3/uL (4.0-10.5)
[2018-02-08 05:42] LABS: ALBUMIN 3.7 g/dL (3.5-5.0); BLOOD UREA NITROGEN 71 mg/dL (7-20); CALCIUM 8.3 mg/dL (8.4-10.2); CARBON DIOXIDE 17 mmol/L (22-30); CHLORIDE 93 mmol/L (98-107); GLUCOSE 171 mg/dL (75-110); PHOSPHORUS 8.4 mg/dL (2.5-4.5); SODIUM 130.3 mmol/L (137-145)
[2018-02-08 05:51] LABS: ANION GAP 20 (5-19)
[2018-02-08 05:59] LABS: POTASSIUM 6.3 mmol/L (3.6-5.0)
[2018-02-08 06:06] LABS: PLATELET COUNT 79 10^3/uL (150-450)
[2018-02-08 06:18] LABS: ABSOLUTE LYMPHOCYTES# (MANUAL) 0.7 10^3/uL (0.5-4.7); ABSOLUTE MONOCYTES # (MANUAL) 1.4 10^3/uL (0.1-1.4); ABSOLUTE NEUTROPHILS# (MANUAL) 15.7 10^3/uL (1.7-8.2); BASOPHILS % (MANUAL) 0 % (0-2); EOSINOPHILS % (MANUAL) 0 % (0-6); LYMPHOCYTES % (MANUAL) 4 % (13-45); MONOCYTES % (MANUAL) 8 % (3-13); SEGMENTED NEUTROPHILS % (MAN) 88 % (42-78); TOTAL CELLS COUNTED 100
[2018-02-08 06:22] LABS: ANISOCYTOSIS 1+; BURR CELLS 3+; PLATELET COMMENT DECREASED; PLATELET LARGE PRESENT; POIKILOCYTOSIS 2+; TEAR DROP CELLS 1+; TOXIC GRANULATION SLIGHT
[2018-02-08] MEDS ORDERED: SODIUM POLYSTYRENE SULFONATE 15 GM/60 ML PO ONE (06:45)
[2018-02-08] MEDS ORDERED: INSULIN REG, HUMAN 100 UNIT/ML 3 ML VIAL (PYX) IV ONE (06:45)
[2018-02-08] MEDS ORDERED: DEXTROSE 50%-WATER 25 GM/50 ML DISP.SYRIN IV ONE (06:45)
[2018-02-08] MEDS ORDERED: CALCIUM GLUCONATE 1,000 MG in DEXTROSE 5%-WATER 50 ML IV ONE ×2 (06:45→09:30)
[2018-02-08] MEDS ORDERED: CALCIUM GLUCONATE 1000 MG/10 ML INJ IV ONE (07:45)
[2018-02-08] MEDS: PREGABALIN 75 MG CAPSULE PO SCH ×3 (07:53→23:26)
[2018-02-08] MEDS: LEVOTHYROXINE SODIUM 0.15 MG TABLET PO SCH (07:53)
[2018-02-08] MEDS: DILTIAZEM HCL 30 MG TABLET PO SCH ×4 (07:56→23:26)
[2018-02-08] MEDS: INSULIN DETEMIR 100 UNIT/ML 3 ML PEN SUBCUT SCH ×2 (08:58→23:37)
[2018-02-08] MEDS ORDERED: NORMAL SALINE 1000 ML 1,000 ML IV PRN (11:34)
[2018-02-08] MEDS: APIXABAN 5 MG TABLET PO SCH (12:02)
[2018-02-08] MEDS ORDERED: TUBERCULIN,PURIF.PROT.DERIV. 5 TU/0.1 ML TEST 1 ML VIAL ID ONE ×2 (14:00→20:30)
--- NOTE | 2018-02-08 14:26 | Operative Report ---
Operative Report DATE OF SURGERY: 02/08/18 PREOPERATIVE DIAGNOSIS: Renal failure, critical need for hemodialysis access POSTOPERATIVE DIAGNOSIS: Same OPERATION: Right femoral Vas-Cath placement (uncuffed dialysis catheter placement) under ultrasound guidance SURGEON: LISSY KHAN ANESTHESIA: Local TISSUE REMOVED OR ALTERED: None COMPLICATIONS: None ESTIMATED BLOOD LOSS: 20 cc INTRAOPERATIVE FINDINGS: None PROCEDURE: The procedure was declared a medical emergency by hospitalist and nephrology. Patient's right groin was prepped and draped in the usual sterile fashion. The right femoral vein was visualized with the ultrasound. Local anesthetic was administered. The right femoral vein was entered without difficulty however I could not feed the guidewire despite different technical measures. Therefore the needle was pulled out. Compression was then applied. Second attempt entered the right femoral vein without difficulty. Guidewire was easily passed this time. The track and right femoral vein was sequentially dilated and the Vas-Cath was placed without difficulty and sutured in place. It withdrew blood and flushed easily. Dressings were applied. Patient tolerated procedure well with no apparent complications.
[2018-02-08] MEDS ORDERED: HEPARIN SOD (PORCINE) 1,000 UNIT/ML 10 ML VIAL IV PRN (16:14)
--- NOTE | 2018-02-08 16:54 | PDOC PROGRESS REPORT ---
Subjective Progress Note for:: 02/08/18 Subjective:: I saw the patient around noontime today. He was more somnolent compared to yesterday. His potassium was elevated in the morning at around 6.3. His kidney function is also worse. Since this are symptoms and indications of uremia I decided the patient needs to have an urgent dialysis treatment today. Patient due to his developmental delay cannot really make any decisions regarding this and we do not have any family members or next of kin who we can ask for consent so I did discuss the case with the hospitalist, Dr. Lr and we both agreed that they can sign consent for the patient as a medical necessity for this procedure. I then went ahead and called our surgeon, Dr.'s were to place a temporary dialysis catheter. Urgent dialysis was then arranged. I am currently seeing the patient during dialysis treatment this afternoon. He is still somnolent but comfortable lying down in bed. He answers a few questions but not all of them and more often his speech is incomprehensible at this time. He said just not feeling well but denies shortness of breath no pain anywhere. He opens his eyes every now and then. Currently he is tolerating dialysis without any problems to his newly placed dialysis catheter. Reason For Visit: VENOUS STASIS,CELLULITIS Physical Exam Vital Signs: Temp Pulse Resp BP Pulse Ox 97.9 F 100 14 140/67 H 97 02/08/18 16:00 02/08/18 16:00 02/08/18 16:00 02/08/18 16:00 02/08/18 16:00 Pulse Oximeter Continuous Start: 02/05/18 18: 33 Freq: RTQ4 Status: Active Document 02/08/18 12:06 [facility] [place] (Rec: 02/08/18 12:06 [facility] [place] [id number]) Pulse Oximetry Assessment Oxygen Saturation (92-100) 95 Oxygen Flow Rate (L/min) 3 Oxygen Delivery Method Nasal Cannula Fraction of Inspired Oxygen (FIO2) 32 Equipment Usage Equipment in Use Continuous SpO2 Machine # N 6 Intake & Output 02/07/18 02/08/18 02/09/18 06:59 06:59 06:59 Intake Total 730 750 266 Output Total 650 Balance 730 100 266 Weight 127.7 kg 127.7 kg Vitals urinalysis: Blood pressure 124/70, heart rate of 108, blood flow rate of 250 mL/min, dialysate flow rate of 500 mL/min. Exam: General appearance: PRESENT: no acute distress, lethargic and occasionally answers questions Head exam: PRESENT: atraumatic, normocephalic Eye exam: PRESENT: conjunctiva pink, PERRLA. ABSENT: scleral icterus Neck exam: ABSENT: JVD Respiratory exam: PRESENT: Coarse breath sounds. Positive crackles diffusely ABSENT: Rhonchi, unlabored, wheezes Cardiovascular exam: PRESENT: Regular rate rhythm -+S1, +S2. ABSENT: diastolic murmur, systolic murmur GI/Abdominal exam: PRESENT: Diminished bowel sounds, soft. ABSENT: guarding, mass, tenderness Extremities exam: Grade 2 bilateral lower extremity and change pitting edema Neurological exam: PRESENT: Lethargic and somnolent. Skin exam: PRESENT: dry, warm, lower extremity erythema and lesions and change Results Laboratory Results: 02/08/18 04:59 02/08/18 10:45 02/08/18 02/08/18 02/08/18 04:59 04:59 10:45 WBC 17.8 H RBC 3.92 L Hgb 12.1 L Hct 34.9 L MCV 89 MCH 30.9 MCHC 34.7 RDW 15.3 H Plt Count 79 L Seg Neutrophils % Not Reportable Lymphocytes % Not Reportable Monocytes % Not Reportable Eosinophils % Not Reportable Basophils % Not Reportable Absolute Neutrophils Not Reportable Absolute Lymphocytes Not Reportable Absolute Monocytes Not Reportable Absolute Eosinophils Not Reportable Absolute Basophils Not Reportable Sodium 130.3 L Potassium 6.3 H* 6.0 H* Chloride 93 L Carbon Dioxide 17 L Anion Gap 20 H BUN 71 H Creatinine 7.38 H Est GFR ( Amer) 9 L Est GFR (Non-Af Amer) 8 L Glucose 171 H Calcium 8.3 L Phosphorus 8.4 H Magnesium 2.0 Albumin 3.7 02/05/18 06:29 NT-Pro-B Natriuret Pep 4820 H Impressions: Venous Doppler Study 02/02/18 00:00 IMPRESSION: NO EVIDENCE DVT OR SVT IN EITHER LEG. Chest X-Ray 02/06/18 06:00 IMPRESSION: Persistent cardiomegaly. Modified Barium Swallow 02/07/18 00:00 IMPRESSION: LARYNGEAL PENETRATION WITH THIN AND NECTAR THICK CONSISTENCIES. TRACHEAL ASPIRATION SEEN FROM RESIDUALS.PLEASE SEE SPEECH PATHOLOGIST REPORT FOR OTHER FINDINGS AND RECOMMENDATIONS. Soft Tissue Neck CT 02/07/18 00:00 IMPRESSION: 1. NO SIGNIFICANT FINDING IN THE SOFT TISSUES OF THE NECK. 2. MAXILLARY SINUS DISEASE. 3. PATCHY GROUND-GLASS OPACITIES IN THE UPPER LOBES, RIGHT GREATER THAN LEFT. MAY BE DUE TO ATELECTASIS, INFLAMMATION, OR INFECTION. Renal Ultrasound 02/07/18 17:29 IMPRESSION: CHRONIC MEDICAL RENAL DISEASE. NO HYDRONEPHROSIS. Assessment & Plan - Diagnosis (1) Acute kidney injury Is this a current diagnosis for this admission?: Yes Plan: Most likely secondary to vancomycin toxicity currently with worsening uremic symptoms. Urinalysis unable to be collected. Kidney ultrasound is negative for any hydronephrosis but has some increased echogenicity. No eosinophilia. Due to worsening uremic symptoms with decline in mental status, hyperkalemia and metabolic acidosis the patient needs urgent hemodialysis treatment. As a stated above Dr. Morton the hospitalist and myself signed a consent for the patient for medical purpose. We will get hepatitis panel and place a PPD just in case the patient would need a little bit longer dialysis treatment pending renal recovery if he will recover. We will do dialysis today for 2.5 hours, using the patient's right femoral trialysis catheter, with 2 potassium bath, blood flow rate of 250 mL per minute , dialysate flow rate of 500 mL per minute, ultrafiltration 2 L as tolerated, no heparin and no Procrit needed. Patient will be monitored toward 2-hour dialysis treatment by the dialysis nurse and manage accordingly. I will plan to do another dialysis treatment tomorrow. (2) Cellulitis of lower extremity Qualifiers: Laterality: right Qualified Code(s): L03.115 - Cellulitis of right lower limb Is this a current diagnosis for this admission?: Yes Plan: Is still currently on antibiotics. (3) Venous stasis dermatitis of both lower extremities Is this a current diagnosis for this admission?: Yes (4) Hyperkalemia Is this a current diagnosis for this admission?: Yes Plan: Patient was given some anti-hyperkalemia cocktail earlier this morning but dialysis would help this issue. (5) Hyperphosphatemia Is this a current diagnosis for this admission?: Yes (6) Metabolic acidosis Is this a current diagnosis for this admission?: Yes Plan: Dialysis would hopefully improve this as well. (7) Aspiration into airway Qualifiers: Encounter type: initial encounter Qualified Code(s): T17.908A - Unspecified foreign body in respiratory tract, part unspecified causing other injury, initial encounter Is this a current diagnosis for this admission?: Yes (8) Diabetes Qualifiers: Diabetes mellitus type: type 2 Diabetes mellitus [facility] insulin use: unspecified terminal make up operator insulin use status Diabetes mellitus complication status : without complication Qualified Code(s): E11.9 - Type 2 diabetes mellitus without complications Is this a current diagnosis for this admission?: Yes - Notes Notes: I coordinated the plan for this patient today with Dr. Morton, Dr. Sultana to surgeon and his treating nurse today. We will continue to closely monitor the patient today. - Time Time with patient: Greater than 35 minutes
--- NOTE | 2018-02-08 17:47 | PDOC PROGRESS REPORT ---
Subjective Progress Note for:: 02/08/18 Subjective:: 02/08/2018-patient was seen this morning is in the bed not in distress somnolent is any pain or any other problems discussed the case with Dr. Henson this morning we are making arrangements for immediate dialysis because there is no family member is available and patient is unable to take medical decisions but the first signed the consent papers for catheter placement permacath placement for dialysis and dialysis procedure Reason For Visit: VENOUS STASIS,CELLULITIS Physical Exam Vital Signs: Temp Pulse Resp BP Pulse Ox 97.9 F 100 14 140/67 H 97 02/08/18 16:00 02/08/18 16:00 02/08/18 16:00 02/08/18 16:00 02/08/18 16:00 Pulse Oximeter Continuous Start: 02/05/18 18: 33 Freq: RTQ4 Status: Active Document 02/08/18 12:06 [place] (Rec: 02/08/18 12:06 [email or web address] [email or web address]) Pulse Oximetry Assessment Oxygen Saturation (92-100) 95 Oxygen Flow Rate (L/min) 3 Oxygen Delivery Method Nasal Cannula Fraction of Inspired Oxygen (FIO2) 32 Equipment Usage Equipment in Use Continuous SpO2 Machine # N [id number] Intake & Output 02/07/18 02/08/18 02/09/18 06:59 06:59 06:59 Intake Total 730 750 266 Output Total 650 Balance 730 100 266 Weight 127.7 kg 127.7 kg General appearance: PRESENT: no acute distress Head exam: PRESENT: atraumatic Eye exam: PRESENT: PERRLA Mouth exam: PRESENT: tongue midline Neck exam: ABSENT: carotid bruit, JVD, lymphadenopathy, thyromegaly Respiratory exam: PRESENT: rhonchi, wheezes, other - chest with congestive breath sounds rather Cardiovascular exam: PRESENT: RRR. ABSENT: diastolic murmur, rubs, systolic murmur GI/Abdominal exam: PRESENT: normal bowel sounds, soft. ABSENT: tenderness Extremities exam: PRESENT: other - Rashes present in both lower extremities with edema Neurological exam: PRESENT: alert, awake Skin exam: PRESENT: other - Excoriations in both lower extremities Results Laboratory Results: 02/08/18 04:59 02/08/18 10:45 02/08/18 02/08/18 02/08/18 04:59 04:59 10:45 WBC 17.8 H RBC 3.92 L Hgb 12.1 L Hct 34.9 L MCV 89 MCH 30.9 MCHC 34.7 RDW 15.3 H Plt Count 79 L Seg Neutrophils % Not Reportable Lymphocytes % Not Reportable Monocytes % Not Reportable Eosinophils % Not Reportable Basophils % Not Reportable Absolute Neutrophils Not Reportable Absolute Lymphocytes Not Reportable Absolute Monocytes Not Reportable Absolute Eosinophils Not Reportable Absolute Basophils Not Reportable Sodium 130.3 L Potassium 6.3 H* 6.0 H* Chloride 93 L Carbon Dioxide 17 L Anion Gap 20 H BUN 71 H Creatinine 7.38 H Est GFR ( Amer) 9 L Est GFR (Non-Af Amer) 8 L Glucose 171 H Calcium 8.3 L Phosphorus 8.4 H Magnesium 2.0 Albumin 3.7 02/05/18 06:29 NT-Pro-B Natriuret Pep 4820 H Impressions: Venous Doppler Study 02/02/18 00:00 IMPRESSION: NO EVIDENCE DVT OR SVT IN EITHER LEG. Chest X-Ray 02/06/18 06:00 IMPRESSION: Persistent cardiomegaly. Modified Barium Swallow 02/07/18 00:00 IMPRESSION: LARYNGEAL PENETRATION WITH THIN AND NECTAR THICK CONSISTENCIES. TRACHEAL ASPIRATION SEEN FROM RESIDUALS.PLEASE SEE SPEECH PATHOLOGIST REPORT FOR OTHER FINDINGS AND RECOMMENDATIONS. Soft Tissue Neck CT 02/07/18 00:00 IMPRESSION: 1. NO SIGNIFICANT FINDING IN THE SOFT TISSUES OF THE NECK. 2. MAXILLARY SINUS DISEASE. 3. PATCHY GROUND-GLASS OPACITIES IN THE UPPER LOBES, RIGHT GREATER THAN LEFT. MAY BE DUE TO ATELECTASIS, INFLAMMATION, OR INFECTION. Renal Ultrasound 02/07/18 17:29 IMPRESSION: CHRONIC MEDICAL RENAL DISEASE. NO HYDRONEPHROSIS. Assessment & Plan - Diagnosis (1) Acute kidney failure Qualifiers: Acute renal failure type: unspecified Qualified Code(s): N17.9 - Acute kidney failure, unspecified Is this a current diagnosis for this admission?: Yes Plan: 04/10/2017-nephrology was consulted yesterday because of the high potassium levels and worsening creatinine this morning creatinine potassium was 6.3 despite medical management and Dr. Henson plan to do emergency dialysis today and catheter was placed a dialysis catheter was placed under dialysis was initiated this AKA may be secondary to sepsis and vancomycin trough came back as 36.400 vancomycin was discontinued yesterday. Because no family is available and the patient need emergency dialysis both Dr. Henson admit we signed the consent (2) Aspiration into airway Qualifiers: Encounter type: initial encounter Qualified Code(s): T17.908A - Unspecified foreign body in respiratory tract, part unspecified causing other injury, initial encounter Is this a current diagnosis for this admission?: Yes Plan: 04/10/2017-patient has problem with swallowing and modified barium swallow was done which was abnormal and patient is a very high risk for aspiration pneumonia on he may need PEG to be in the future. Modified barium swallow shows significant pooling in the vallecula. GI is on board speech therapy was requested we will follow daily recommendations. (3) Atrial fibrillation Qualifiers: Atrial fibrillation type: paroxysmal Qualified Code(s): I48.0 - Paroxysmal atrial fibrillation Is this a current diagnosis for this admission?: Yes Plan: patient has a history of atrial fibrillation he is not on any current anticoagulation prior to hospitalization he was started on Eliquis yesterday and the nurse called me to notify that this increased bleeding from the IV site and also from the noticed a little bit of blood at the tip of the pain is so we plan to discontinue Eliquis for couple of days and we are going to put him on SCDs in the meantime (4) Cellulitis of lower extremity Qualifiers: Laterality: right Qualified Code(s): L03.115 - Cellulitis of right lower limb Is this a current diagnosis for this admission?: Yes Plan: 04/10/2017 patient has lower extremity cellulitis on both sides he is IV vancomycin and Zosyn Vanco was discontinued because of trough level of 36.4. We will adjusted dose as per the nephrology recommendations (5) Diabetes Qualifiers: Diabetes mellitus type: type 2 Diabetes mellitus [facility] insulin use: unspecified [facility] insulin use status Diabetes mellitus complication status : without complication Qualified Code(s): E11.9 - Type 2 diabetes mellitus without complications Is this a current diagnosis for this admission?: Yes Plan: 04/10/2017-Levemir 55 units in the morning 44 units in the evening and is also on sliding scale. Blood sugar today is 161. We will make adjustments to the sliding scale based on the blood sugar readings (6) CAD (coronary artery disease), [place] coronary artery Qualifiers: [place] vs. transplanted heart: [place] heart Associated angina: without angina Qualified Code(s): I25.10 - Atherosclerotic heart disease of [place] coronary artery without angina pectoris Is this a current diagnosis for this admission?: Yes Plan: 04/10/2017 history of Gurjit. lit on diltiazem 120 mg daily and it was changed to 30 mg p.o. 6 every 6 hours because of problems with swallowing his blood pressure is relatively stable (7) Hyperkalemia Is this a current diagnosis for this admission?: Yes Plan: 04/10/2017 his latest potassium is 6.0 prior to dialysis hopefully after the dialysis the potassium levels going to be normal. Patient has multiple medical problems cellulitis problem with aspiration most likely having the aspiration pneumonia acute renal failure with hyperkalemia so overall prognosis is poor - Time Time Spent with patient: 25-34 minutes Medications reviewed and adjusted accordingly: Yes
[2018-02-08] MEDS: LACTOBACILLUS ACIDOPHILUS 250 MG TAB PO SCH ×2 (18:31→18:36)
[2018-02-08] MEDS: FUROSEMIDE 20 MG TABLET PO SCH ×2 (18:31→18:37)
[2018-02-08] MEDS: ASPIRIN 325 MG TABLET PO SCH (18:32)
[2018-02-08] MEDS: FLUTICASONE NASAL SPRAY 50 MCG/SPRY 120 SPRAY/16 GM NASL SCH ×2 (18:32→23:26)
[2018-02-08] MEDS: PREDNISONE 20 MG TABLET PO SCH (18:34)
[2018-02-08] MEDS: METOPROLOL TARTRATE 50 MG TABLET PO SCH ×2 (18:36→23:27)
[2018-02-08] MEDS: RISPERIDONE 1 MG TABLET PO SCH (18:38)
[2018-02-08 18:56] LABS: ABSOLUTE MONOCYTES (AUTO) 1.4 10^3/uL (0.1-1.4); ABSOLUTE NEUT (AUTO) 9.9 10^3/uL (1.7-8.2); BASOPHILS % (AUTO) 0.1 % (0-2); EOSINOPHILS % (AUTO) 0.2 % (0-6); HEMATOCRIT 34.5 % (37.9-51.0); INTERNATIONAL RATION (INR) 1.13; LYMPHOCYTES % (AUTO) 7.8 % (13-45); MEAN CORPUSCULAR HEMOGLOBIN 30.6 pg (27.0-33.4); MEAN CORPUSCULAR HGB CONC 34.9 g/dL (32.0-36.0); MEAN CORPUSCULAR VOLUME 88 fl (80-97); MONOCYTES % (AUTO) 11.1 % (3-13); PROTHROMBIN TIME 15.1 SEC (11.4-15.4); RED BLOOD COUNT 3.93 10^6/uL (4.35-5.55); RED CELL DISTRIBUTION WIDTH 15.4 % (11.5-14.0); SEGMENTED NEUTROPHILS % (AUTO) 80.8 % (42-78); TOTAL CELLS COUNTED % (AUTO) 100 %; WHITE BLOOD COUNT 12.3 10^3/uL (4.0-10.5)
[2018-02-08 19:23] LABS: PLATELET COUNT 99 10^3/uL (150-450)
[2018-02-08] MEDS: PANTOT AC/MIN OIL/PET HY-PHL OINT 50 GM TOP SCH ×2 (23:07→23:23)
[2018-02-08] MEDS: ATORVASTATIN CALCIUM 80 MG TABLET PO SCH (23:26)
[2018-02-08] MEDS: CETIRIZINE 10 MG TABLET PO SCH (23:27)
[2018-02-09] MEDS: IPRATROPIUM/ALBUTEROL 0.5-2.5 MG/3 ML AMPUL NEB SCH ×4 (01:38→20:02)
[2018-02-09] MEDS ORDERED: NORMAL SALINE 1000 ML 1,000 ML IV PRN (05:00)
[2018-02-09 05:52] LABS: ABSOLUTE LYMPHOCYTES (AUTO) 0.6 10^3/uL (0.5-4.7); ABSOLUTE MONOCYTES (AUTO) 0.8 10^3/uL (0.1-1.4); BASOPHILS % (AUTO) 0.2 % (0-2); EOSINOPHILS % (AUTO) 0.1 % (0-6); HEMATOCRIT 32.7 % (37.9-51.0); HEMOGLOBIN 11.5 g/dL (13.5-17.0); LYMPHOCYTES % (AUTO) 5.5 % (13-45); MEAN CORPUSCULAR HEMOGLOBIN 30.7 pg (27.0-33.4); MEAN CORPUSCULAR VOLUME 88 fl (80-97); MONOCYTES % (AUTO) 7.8 % (3-13); RED BLOOD COUNT 3.74 10^6/uL (4.35-5.55); RED CELL DISTRIBUTION WIDTH 15.3 % (11.5-14.0); SEGMENTED NEUTROPHILS % (AUTO) 86.4 % (42-78); TOTAL CELLS COUNTED % (AUTO) 100 %; WHITE BLOOD COUNT 10.4 10^3/uL (4.0-10.5)
[2018-02-09] MEDS: LEVOTHYROXINE SODIUM 0.15 MG TABLET PO SCH (05:56)
[2018-02-09] MEDS: PREGABALIN 75 MG CAPSULE PO SCH ×3 (05:56→22:20)
[2018-02-09] MEDS: DILTIAZEM HCL 30 MG TABLET PO SCH ×4 (05:56→23:03)
[2018-02-09 06:02] LABS: ANION GAP 17 (5-19); BLOOD UREA NITROGEN 62 mg/dL (7-20); CALCIUM 8.5 mg/dL (8.4-10.2); CARBON DIOXIDE 23 mmol/L (22-30); CHLORIDE 96 mmol/L (98-107); GLUCOSE 84 mg/dL (75-110); PHOSPHORUS 7.6 mg/dL (2.5-4.5); POTASSIUM 5.2 mmol/L (3.6-5.0); SODIUM 136.2 mmol/L (137-145)
[2018-02-09 06:18] LABS: PLATELET COUNT 83 10^3/uL (150-450)
--- NOTE | 2018-02-09 09:11 | PDOC PROGRESS REPORT ---
Subjective Progress Note for:: 02/09/18 Subjective:: I am seeing the patient on dialysis again this morning. He seems to be a little bit more awake, answering more questions and speech is more understandable compared to yesterday. He still tells me that he does not feel well but denies any shortness of breath, chest pains, nausea or vomiting. He said he still having diarrhea. He also describes that he cannot feed himself that food is just spilling over and he cannot hold on to the spoon. Currently he is tolerating dialysis although the blood pressure is a little bit on the low side. We will get a chest ultrafiltration accordingly based on his blood pressure. He will be monitored to her dialysis treatment today. Reason For Visit: VENOUS STASIS,CELLULITIS Physical Exam Vital Signs: Temp Pulse Resp BP Pulse Ox 98.0 F 108 H 20 115/83 99 02/09/18 07:19 02/09/18 07:48 02/09/18 07:19 02/09/18 07:19 02/09/18 07:19 Pulse Oximeter Continuous Start: 02/05/18 18: 33 Freq: RTQ4 Status: Active Document 02/09/18 04:00 [facility] (Rec: 02/09/18 04:05 [facility] [email or web address]) Pulse Oximetry Assessment Oxygen Saturation (92-100) 95 Oxygen Flow Rate (L/min) 3 Oxygen Delivery Method Nasal Cannula Fraction of Inspired Oxygen (FIO2) 32 Equipment Usage Equipment in Use Continuous SpO2 Machine # [id number] Intake & Output 02/08/18 02/09/18 02/10/18 06:59 06:59 06:59 Intake Total 750 386 Output Total 650 2000 Balance 100 -1614 Weight 127.7 kg 132 kg Vitals during dialysis this morning: Blood pressure 119/61, heart rate 88, blood flow rate of 250 mL/min, and dialysate flow rate of 500 mL/min. Exam: General appearance: PRESENT: no acute distress, cooperative, still lethargic but more arousable and answering questions Head exam: PRESENT: atraumatic, normocephalic Eye exam: PRESENT: conjunctiva pink, PERRLA. ABSENT: scleral icterus Neck exam: ABSENT: JVD Respiratory exam: PRESENT: Persistent bilateral coarse breath sounds. ABSENT: crackles, rales, rhonchi, unlabored, wheezes Cardiovascular exam: PRESENT: Regular rate rhythm -+S1, +S2. ABSENT: diastolic murmur, systolic murmur GI/Abdominal exam: PRESENT: normal bowel sounds, soft. ABSENT: guarding, mass, tenderness Extremities exam: Bilateral lower extremity grade 1 pitting edema, his upper extremities also feel tight Neurological exam: PRESENT: Still lethargic but as above more arousable. Skin exam: PRESENT: dry, warm, lower extremities excoriations unchanged, he has a bleeding site which is now clotted on his left forearm Results Laboratory Results: 02/09/18 05:07 02/09/18 05:07 02/08/18 02/08/18 02/09/18 10:45 18:28 05:07 WBC 12.3 H 10.4 RBC 3.93 L 3.74 L Hgb 12.0 L 11.5 L Hct 34.5 L 32.7 L MCV 88 88 MCH 30.6 30.7 MCHC 34.9 35.0 RDW 15.4 H 15.3 H Plt Count 99 L 83 L Seg Neutrophils % 80.8 H 86.4 H Lymphocytes % 7.8 L 5.5 L Monocytes % 11.1 7.8 Eosinophils % 0.2 0.1 Basophils % 0.1 0.2 Absolute Neutrophils 9.9 H 9.0 H Absolute Lymphocytes 1.0 0.6 Absolute Monocytes 1.4 0.8 Absolute Eosinophils 0.0 0.0 Absolute Basophils 0.0 0.0 Sodium Potassium 6.0 H* Chloride Carbon Dioxide Anion Gap BUN Creatinine Est GFR ( Amer) Est GFR (Non-Af Amer) Glucose Calcium Phosphorus 02/09/18 05:07 WBC RBC Hgb Hct MCV MCH MCHC RDW Plt Count Seg Neutrophils % Lymphocytes % Monocytes % Eosinophils % Basophils % Absolute Neutrophils Absolute Lymphocytes Absolute Monocytes Absolute Eosinophils Absolute Basophils Sodium 136.2 L Potassium 5.2 H Chloride 96 L Carbon Dioxide 23 Anion Gap 17 BUN 62 H Creatinine 6.70 H Est GFR ( Amer) 10 L Est GFR (Non-Af Amer) 8 L Glucose 84 Calcium 8.5 Phosphorus 7.6 H 02/05/18 06:29 NT-Pro-B Natriuret Pep 4820 H Impressions: Venous Doppler Study 02/02/18 00:00 IMPRESSION: NO EVIDENCE DVT OR SVT IN EITHER LEG. Chest X-Ray 02/06/18 06:00 IMPRESSION: Persistent cardiomegaly. Modified Barium Swallow 02/07/18 00:00 IMPRESSION: LARYNGEAL PENETRATION WITH THIN AND NECTAR THICK CONSISTENCIES. TRACHEAL ASPIRATION SEEN FROM RESIDUALS.PLEASE SEE SPEECH PATHOLOGIST REPORT FOR OTHER FINDINGS AND RECOMMENDATIONS. Soft Tissue Neck CT 02/07/18 00:00 IMPRESSION: 1. NO SIGNIFICANT FINDING IN THE SOFT TISSUES OF THE NECK. 2. MAXILLARY SINUS DISEASE. 3. PATCHY GROUND-GLASS OPACITIES IN THE UPPER LOBES, RIGHT GREATER THAN LEFT. MAY BE DUE TO ATELECTASIS, INFLAMMATION, OR INFECTION. Renal Ultrasound 02/07/18 17:29 IMPRESSION: CHRONIC MEDICAL RENAL DISEASE. NO HYDRONEPHROSIS. Assessment & Plan - Diagnosis (1) Acute kidney injury Is this a current diagnosis for this admission?: Yes Plan: Most likely secondary to vancomycin toxicity currently with worsening uremic symptoms. Urinalysis unable to be collected. Kidney ultrasound is negative for any hydronephrosis but has some increased echogenicity. No eosinophilia. Due to worsening uremic symptoms with decline in mental status, hyperkalemia and metabolic acidosis the patient needed urgent hemodialysis treatment yesterday. Dr. Boucherava the hospitalist and myself signed a consent for the patient for medical purpose. We will get hepatitis panel and place a PPD just in case the patient would need a little bit longer dialysis treatment pending renal recovery if he will recover. We will do dialysis today for 3 hours, using the patient's right femoral trialysis catheter, with 2 potassium bath, blood flow rate of 250 mL per minute , dialysate flow rate of 500 mL per minute, ultrafiltration 2-3 L as tolerated, no heparin and no Procrit needed. Patient will be monitored toward 2-hour dialysis treatment by the dialysis nurse and manage accordingly. I will plan to do another dialysis treatment on Wednesday. (2) Cellulitis of lower extremity Qualifiers: Laterality: right Qualified Code(s): L03.115 - Cellulitis of right lower limb Is this a current diagnosis for this admission?: Yes Plan: Is still currently on antibiotics. (3) Venous stasis dermatitis of both lower extremities Is this a current diagnosis for this admission?: Yes (4) Hyperkalemia Is this a current diagnosis for this admission?: Yes Plan: Improved with dialysis. (5) Hyperphosphatemia Is this a current diagnosis for this admission?: Yes (6) Metabolic acidosis Is this a current diagnosis for this admission?: Yes Plan: Resolved with dialysis. (7) Aspiration into airway Qualifiers: Encounter type: initial encounter Qualified Code(s): T17.908A - Unspecified foreign body in respiratory tract, part unspecified causing other injury, initial encounter Is this a current diagnosis for this admission?: Yes (8) Diabetes Qualifiers: Diabetes mellitus type: type 2 Diabetes mellitus [facility] insulin use: unspecified [facility] insulin use status Diabetes mellitus complication status : without complication Qualified Code(s): E11.9 - Type 2 diabetes mellitus without complications Is this a current diagnosis for this admission?: Yes - Time Time with patient: 15-25 minutes
[2018-02-09] MEDS: INSULIN DETEMIR 100 UNIT/ML 3 ML PEN SUBCUT SCH ×2 (09:27→22:19)
[2018-02-09 10:38] LABS: HEPATITS B SURFACE ANTIGEN Negative (Negative)
--- NOTE | 2018-02-09 11:15 | PDOC PROGRESS REPORT ---
Subjective Progress Note for:: 02/09/18 Subjective:: 04/11/2017-was in the dialysis room he is on the dialysis is machine at this time.. Comfortably sleeping in bed woke up on calling denies any problems denies any pain. He looks much better to me compared to yesterday. He had one session of dialysis yesterday. Reason For Visit: VENOUS STASIS,CELLULITIS Physical Exam Vital Signs: Temp Pulse Resp BP Pulse Ox 98.0 F 104 H 16 115/83 98 02/09/18 07:19 02/09/18 08:17 02/09/18 08:17 02/09/18 07:19 02/09/18 08:17 Pulse Oximeter Continuous Start: 02/05/18 18: 33 Freq: RTQ4 Status: Active Document 02/09/18 08:17 [facility] (Rec: 02/09/18 10:33 [facility] [email or web address]) Pulse Oximetry Assessment Equipment Usage Equipment Standby Continuous SpO2 Machine # 6 Intake & Output 02/08/18 02/09/18 02/10/18 06:59 06:59 06:59 Intake Total 750 446 Output Total 650 2000 Balance 100 -1554 Weight 127.7 kg 132 kg General appearance: PRESENT: no acute distress Head exam: PRESENT: atraumatic, normocephalic Eye exam: PRESENT: PERRLA Neck exam: ABSENT: carotid bruit, JVD, lymphadenopathy, thyromegaly Respiratory exam: PRESENT: other - Chest examination chest was much better compared to yesterday's examination. Less rhonchi and less wheezing. Cardiovascular exam: PRESENT: RRR. ABSENT: diastolic murmur, rubs, systolic murmur GI/Abdominal exam: PRESENT: normal bowel sounds, soft, other - Obese abdomen.. ABSENT: guarding, tenderness Extremities exam: PRESENT: other - Excoriations in both lower extremities. Neurological exam: PRESENT: alert, awake Psychiatric exam: PRESENT: normal mood. ABSENT: agitated Results Laboratory Results: 02/09/18 05:07 02/09/18 05:07 02/08/18 02/08/18 02/09/18 10:45 18:28 05:07 WBC 12.3 H 10.4 RBC 3.93 L 3.74 L Hgb 12.0 L 11.5 L Hct 34.5 L 32.7 L MCV 88 88 MCH 30.6 30.7 MCHC 34.9 35.0 RDW 15.4 H 15.3 H Plt Count 99 L 83 L Seg Neutrophils % 80.8 H 86.4 H Lymphocytes % 7.8 L 5.5 L Monocytes % 11.1 7.8 Eosinophils % 0.2 0.1 Basophils % 0.1 0.2 Absolute Neutrophils 9.9 H 9.0 H Absolute Lymphocytes 1.0 0.6 Absolute Monocytes 1.4 0.8 Absolute Eosinophils 0.0 0.0 Absolute Basophils 0.0 0.0 Sodium Potassium 6.0 H* Chloride Carbon Dioxide Anion Gap BUN Creatinine Est GFR ( Amer) Est GFR (Non-Af Amer) Glucose Calcium Phosphorus 02/09/18 05:07 WBC RBC Hgb Hct MCV MCH MCHC RDW Plt Count Seg Neutrophils % Lymphocytes % Monocytes % Eosinophils % Basophils % Absolute Neutrophils Absolute Lymphocytes Absolute Monocytes Absolute Eosinophils Absolute Basophils Sodium 136.2 L Potassium 5.2 H Chloride 96 L Carbon Dioxide 23 Anion Gap 17 BUN 62 H Creatinine 6.70 H Est GFR ( Amer) 10 L Est GFR (Non-Af Amer) 8 L Glucose 84 Calcium 8.5 Phosphorus 7.6 H 02/05/18 06:29 NT-Pro-B Natriuret Pep 4820 H Impressions: Venous Doppler Study 02/02/18 00:00 IMPRESSION: NO EVIDENCE DVT OR SVT IN EITHER LEG. Chest X-Ray 02/06/18 06:00 IMPRESSION: Persistent cardiomegaly. Modified Barium Swallow 02/07/18 00:00 IMPRESSION: LARYNGEAL PENETRATION WITH THIN AND NECTAR THICK CONSISTENCIES. TRACHEAL ASPIRATION SEEN FROM RESIDUALS.PLEASE SEE SPEECH PATHOLOGIST REPORT FOR OTHER FINDINGS AND RECOMMENDATIONS. Soft Tissue Neck CT 02/07/18 00:00 IMPRESSION: 1. NO SIGNIFICANT FINDING IN THE SOFT TISSUES OF THE NECK. 2. MAXILLARY SINUS DISEASE. 3. PATCHY GROUND-GLASS OPACITIES IN THE UPPER LOBES, RIGHT GREATER THAN LEFT. MAY BE DUE TO ATELECTASIS, INFLAMMATION, OR INFECTION. Renal Ultrasound 02/07/18 17:29 IMPRESSION: CHRONIC MEDICAL RENAL DISEASE. NO HYDRONEPHROSIS. Assessment & Plan - Diagnosis (1) Acute kidney failure Qualifiers: Acute renal failure type: unspecified Qualified Code(s): N17.9 - Acute kidney failure, unspecified Is this a current diagnosis for this admission?: Yes Plan: 02/08/2018-nephrology was consulted yesterday because of the high potassium levels and worsening creatinine this morning creatinine potassium was 6.3 despite medical management and Dr. Henson plan to do emergency dialysis today and catheter was placed a dialysis catheter was placed under dialysis was initiated this AKA may be secondary to sepsis and vancomycin trough came back as 36.400 vancomycin was discontinued yesterday. Because no family is available and the patient need emergency dialysis both Dr. Henson admit we signed the consent 04/11/2017-patient had one session of dialysis yesterday for the acute renal failure, he is getting another session of dialysis at this point. The latest creatinine is 6.7. Potassium is 5.2 this morning. Patient's volume status is much improved compared to yesterday. AKA may be secondary to vancomycin toxicity/sepsis. Patient has dialysis catheter in the right groin. (2) Aspiration into airway Qualifiers: Encounter type: initial encounter Qualified Code(s): T17.908A - Unspecified foreign body in respiratory tract, part unspecified causing other injury, initial encounter Is this a current diagnosis for this admission?: Yes Plan: 02/08/2018-patient has problem with swallowing and modified barium swallow was done which was abnormal and patient is a very high risk for aspiration pneumonia on he may need PEG to be in the future. Modified barium swallow shows significant pooling in the vallecula. GI is on board speech therapy was requested we will follow daily recommendations. 04/11/2017 as per the patient patient able to take crushed medications, and he still has a difficulty in swallowing solid food. Modified barium swallow suggests pooling of food around the vallecula. If patient is still have the problems with swallowing we may have to consider arranging for a PEG placement. Patient's latest blood cultures are negative. (3) Atrial fibrillation Qualifiers: Atrial fibrillation type: paroxysmal Qualified Code(s): I48.0 - Paroxysmal atrial fibrillation Is this a current diagnosis for this admission?: Yes Plan: patient has a history of atrial fibrillation he is not on any current anticoagulation prior to hospitalization he was started on Eliquis yesterday and the nurse called me to notify that this increased bleeding from the IV site and also from the noticed a little bit of blood at the tip of the pain is so we plan to discontinue Eliquis for couple of days and we are going to put him on SCDs in the meantime 04/11/2017-she has history of atrial fibrillation, he was started on Eliquis 5 mg p.o. daily during this hospital stay, the nurse called me yesterday concerned about on and off bleeding from the IV site he stopped his Eliquis yesterday and be going to put him on eliquis 2.5 mg daily. (4) Cellulitis of lower extremity Qualifiers: Laterality: right Qualified Code(s): L03.115 - Cellulitis of right lower limb Is this a current diagnosis for this admission?: Yes Plan: 04/10/2017 patient has lower extremity cellulitis on both sides he is IV vancomycin and Zosyn Vanco was discontinued because of trough level of 36.4. We will adjusted dose as per the nephrology recommendations 02/09/2018 the latest blood cultures came back negative, patient is not on any antibiotics at this moment. His vital signs blood pressure is 115/83 temperature 98 pulse rate is 104 so he is afebrile. (5) Diabetes Qualifiers: Diabetes mellitus type: type 2 Diabetes mellitus [facility] insulin use: unspecified [facility] insulin use status Diabetes mellitus complication status : without complication Qualified Code(s): E11.9 - Type 2 diabetes mellitus without complications Is this a current diagnosis for this admission?: Yes Plan: 04/10/2017-Levemir 55 units in the morning 44 units in the evening and is also on sliding scale. Blood sugar today is 161. We will make adjustments to the sliding scale based on the blood sugar readings 02/09/2018 his latest blood sugar is 103. He is on Levemir 44 units in the evening and 55 units in the morning he is also on sliding scale. We will continue the current management. (6) CAD (coronary artery disease), [place] coronary artery Qualifiers: [place] vs. transplanted heart: [place] heart Associated angina: without angina Qualified Code(s): I25.10 - Atherosclerotic heart disease of [place] coronary artery without angina pectoris Is this a current diagnosis for this admission?: Yes Plan: 04/10/2017 history of A. fib on diltiazem 120 mg daily and it was changed to 30 mg p.o. 6 every 6 hours because of problems with swallowing his blood pressure is relatively stable 02/09/2018 and has history of coronary artery disease, he is asymptomatic at this time. (7) Hyperkalemia Is this a current diagnosis for this admission?: Yes Plan: 04/10/2017 his latest potassium is 6.0 prior to dialysis hopefully after the dialysis the potassium levels going to be normal. Patient has multiple medical problems cellulitis problem with aspiration most likely having the aspiration pneumonia acute renal failure with hyperkalemia so overall prognosis is poor 02/09/2018-adjust potassium level is 5.2. This lab is prior to the dialysis, and the patient is getting dialysis at this point. - Time Time Spent with patient: 15-24 minutes Medications reviewed and adjusted accordingly: Yes
[2018-02-09] MEDS: PANTOT AC/MIN OIL/PET HY-PHL OINT 50 GM TOP SCH ×3 (12:24→17:38)
[2018-02-09] MEDS: ASPIRIN 325 MG TABLET PO SCH (12:25)
[2018-02-09] MEDS: LACTOBACILLUS ACIDOPHILUS 250 MG TAB PO SCH ×2 (12:25→17:38)
[2018-02-09] MEDS: METOPROLOL TARTRATE 50 MG TABLET PO SCH ×2 (12:25→22:20)
[2018-02-09] MEDS: RISPERIDONE 1 MG TABLET PO SCH (12:25)
[2018-02-09] MEDS: PREDNISONE 20 MG TABLET PO SCH (12:25)
[2018-02-09] MEDS: FLUTICASONE NASAL SPRAY 50 MCG/SPRY 120 SPRAY/16 GM NASL SCH ×2 (12:25→22:19)
[2018-02-09] MEDS ORDERED: APIXABAN 2.5 MG TABLET PO ONE (13:00)
[2018-02-09] MEDS ORDERED: ACETAMINOPHEN 325 MG TABLET PO PRN (13:19)
[2018-02-09] MEDS: INSULIN LISPRO 100 UNIT/ML 3 ML VIAL SUBCUT PRN ×2 (17:39→22:26)
[2018-02-09] MEDS: ATORVASTATIN CALCIUM 80 MG TABLET PO SCH (22:20)
[2018-02-09] MEDS: CETIRIZINE 10 MG TABLET PO SCH (22:21)
[2018-02-10] MEDS: IPRATROPIUM/ALBUTEROL 0.5-2.5 MG/3 ML AMPUL NEB SCH ×4 (02:03→20:23)
[2018-02-10] MEDS: PREGABALIN 75 MG CAPSULE PO SCH ×3 (05:32→22:22)
[2018-02-10] MEDS: DILTIAZEM HCL 30 MG TABLET PO SCH ×3 (05:32→17:42)
[2018-02-10] MEDS: LEVOTHYROXINE SODIUM 0.15 MG TABLET PO SCH (05:32)
[2018-02-10 09:56] LABS: HEPATITIS B CORE AB TOT Negative (Negative); HEPATITIS B SURFACE AB QUANT 3.4 mIU/mL (Immunity>9)
[2018-02-10 10:29] LABS: ANION GAP 15 (5-19); BLOOD UREA NITROGEN 59 mg/dL (7-20); CALCIUM 8.7 mg/dL (8.4-10.2); CARBON DIOXIDE 27 mmol/L (22-30); CHLORIDE 97 mmol/L (98-107); GLUCOSE 202 mg/dL (75-110); POTASSIUM 4.9 mmol/L (3.6-5.0); SODIUM 138.6 mmol/L (137-145)
[2018-02-10] MEDS: LACTOBACILLUS ACIDOPHILUS 250 MG TAB PO SCH ×2 (10:51→17:42)
[2018-02-10] MEDS: METOPROLOL TARTRATE 50 MG TABLET PO SCH ×2 (10:52→22:12)
[2018-02-10] MEDS: PANTOT AC/MIN OIL/PET HY-PHL OINT 50 GM TOP SCH ×3 (10:52→17:41)
[2018-02-10] MEDS: PREDNISONE 20 MG TABLET PO SCH (10:52)
[2018-02-10] MEDS: FLUTICASONE NASAL SPRAY 50 MCG/SPRY 120 SPRAY/16 GM NASL SCH ×2 (10:52→22:24)
[2018-02-10] MEDS: ASPIRIN 325 MG TABLET PO SCH (10:53)
[2018-02-10] MEDS: RISPERIDONE 1 MG TABLET PO SCH (10:53)
[2018-02-10] MEDS: INSULIN LISPRO 100 UNIT/ML 3 ML VIAL SUBCUT PRN (10:54)
[2018-02-10] MEDS: INSULIN DETEMIR 100 UNIT/ML 3 ML PEN SUBCUT SCH ×2 (10:54→22:08)
--- NOTE | 2018-02-10 13:11 | PDOC PROGRESS REPORT ---
Subjective Progress Note for:: 02/10/18 Subjective:: Patient continues to be lethargic. He is arousable and when I asked him how he is feeling today he said he is feeling better but then went back to sleep. His appetite is poor. He wears diapers and according to the nurses it does not seem to be making much urine at all. Reason For Visit: VENOUS STASIS,CELLULITIS Physical Exam Vital Signs: Temp Pulse Resp BP Pulse Ox 97.7 F 91 18 133/80 H 98 02/10/18 11:50 02/10/18 11:50 02/10/18 11:50 02/10/18 11:50 02/10/18 11:50 Pulse Oximeter Continuous Start: 02/05/18 18: 33 Freq: RTQ4 Status: Active Document 02/10/18 11:32 [facility] [place]/10/18 11:33 [facility] [id number] Pulse Oximetry Assessment Oxygen Saturation (92-100) 97 Oxygen Flow Rate (L/min) 2 Oxygen Delivery Method Nasal Cannula Fraction of Inspired Oxygen (FIO2) 28 Equipment Usage Equipment in Use Continuous SpO2 Machine # N 6 Intake & Output 02/09/18 02/10/18 02/11/18 06:59 06:59 06:59 Intake Total 446 390 Output Total 1999 2700 Balance -1554 -2310 Weight 132 kg 135 kg Exam: General appearance: PRESENT: no acute distress, still very somnolent and lethargic Head exam: PRESENT: atraumatic, normocephalic Eye exam: PRESENT: conjunctiva slightly pale, PERRLA. ABSENT: scleral icterus Neck exam: ABSENT: JVD Respiratory exam: PRESENT: Diminished breath sounds. ABSENT: crackles, rales, rhonchi, unlabored, wheezes Cardiovascular exam: PRESENT: Regular rate rhythm -+S1, +S2. ABSENT: diastolic murmur, systolic murmur GI/Abdominal exam: PRESENT: normal bowel sounds, soft. ABSENT: guarding, mass, tenderness Extremities exam: Grade 2 bilateral lower extremity edema Neurological exam: PRESENT: alert, awake, oriented to person, place and time. Skin exam: PRESENT: dry, warm, still has dose papular lesions on his lower extremities. Results Laboratory Results: 02/09/18 05:07 02/10/18 09:57 02/10/18 09:57 Sodium 138.6 Potassium 4.9 Chloride 97 L Carbon Dioxide 27 Anion Gap 15 BUN 59 H Creatinine 6.18 H Est GFR ( Amer) 11 L Est GFR (Non-Af Amer) 9 L Glucose 202 H Calcium 8.7 02/05/18 06:29 NT-Pro-B Natriuret Pep 4820 H Impressions: Venous Doppler Study 02/02/18 00:00 IMPRESSION: NO EVIDENCE DVT OR SVT IN EITHER LEG. Chest X-Ray 02/06/18 06:00 IMPRESSION: Persistent cardiomegaly. Modified Barium Swallow 02/07/18 00:00 IMPRESSION: LARYNGEAL PENETRATION WITH THIN AND NECTAR THICK CONSISTENCIES. TRACHEAL ASPIRATION SEEN FROM RESIDUALS.PLEASE SEE SPEECH PATHOLOGIST REPORT FOR OTHER FINDINGS AND RECOMMENDATIONS. Soft Tissue Neck CT 02/07/18 00:00 IMPRESSION: 1. NO SIGNIFICANT FINDING IN THE SOFT TISSUES OF THE NECK. 2. MAXILLARY SINUS DISEASE. 3. PATCHY GROUND-GLASS OPACITIES IN THE UPPER LOBES, RIGHT GREATER THAN LEFT. MAY BE DUE TO ATELECTASIS, INFLAMMATION, OR INFECTION. Renal Ultrasound 02/07/18 17:29 IMPRESSION: CHRONIC MEDICAL RENAL DISEASE. NO HYDRONEPHROSIS. Assessment & Plan - Diagnosis (1) Acute kidney injury Is this a current diagnosis for this admission?: Yes Plan: Most likely secondary to vancomycin toxicity currently with worsening uremic symptoms. Urinalysis unable to be collected. Kidney ultrasound is negative for any hydronephrosis but has some increased echogenicity. No eosinophilia. Due to worsening uremic symptoms with decline in mental status, hyperkalemia and metabolic acidosis the patient needed urgent hemodialysis treatment and was started on hemodialysis on 1120. Dr. Boucherava the hospitalist and myself signed a consent for the patient for medical purpose. We will plan to do hemodialysis again tomorrow. (2) Cellulitis of lower extremity Qualifiers: Laterality: right Qualified Code(s): L03.115 - Cellulitis of right lower limb Is this a current diagnosis for this admission?: Yes Plan: Is still currently on antibiotics. He is slight lesions seems to be unusual. We will check for vasculitis. (3) Venous stasis dermatitis of both lower extremities Is this a current diagnosis for this admission?: Yes (4) Hyperkalemia Is this a current diagnosis for this admission?: Yes Plan: Resolved with dialysis. (5) Hyperphosphatemia Is this a current diagnosis for this admission?: Yes Plan: We will recheck level. (6) Metabolic acidosis Is this a current diagnosis for this admission?: Yes Plan: Resolved with dialysis. (7) Aspiration into airway Qualifiers: Encounter type: initial encounter Qualified Code(s): T17.908A - Unspecified foreign body in respiratory tract, part unspecified causing other injury, initial encounter Is this a current diagnosis for this admission?: Yes (8) Diabetes Qualifiers: Diabetes mellitus type: type 2 Diabetes mellitus residential insulin use: unspecified residential insulin use status Diabetes mellitus complication status : without complication Qualified Code(s): E11.9 - Type 2 diabetes mellitus without complications Is this a current diagnosis for this admission?: Yes - Time Time with patient: 15-25 minutes
[2018-02-10 14:30] LABS: ARTERIAL BLOOD BASE EXCESS -2.5 mmol/L; ARTERIAL BLOOD H2CO3 1.56 mmol/L (1.05-1.35); ARTERIAL BLOOD HCO3 24.5 mmol/L (20-24); ARTERIAL BLOOD O2 SATURATION 95.8 % (94-98); ARTERIAL BLOOD PCO2 51.9 mmHg (35-45); ARTERIAL BLOOD PH 7.29 (7.35-7.45); ARTERIAL BLOOD PO2 88.9 mmHg (80-100); ARTERIAL BLOOD TOTAL CO2 26.1 mmol/L (23-27)
[2018-02-10 14:32] LABS: ARTERIAL BLOOD FIO2 1.5L
--- NOTE | 2018-02-10 15:27 | PDOC PROGRESS REPORT ---
Subjective Progress Note for:: 02/10/18 Subjective:: Received urgent HD on 02/09. No overnight events. Noted to have continued oozing from IV site, despite decreased Eliquis dose. This AM, more somnolent per aoc [employer] operations staff officer. Woke up to take medications however did not eat breakfast and fell asleep. Blood sugars have been stable/improved. Reason For Visit: VENOUS STASIS,CELLULITIS Physical Exam Vital Signs: Temp Pulse Resp BP Pulse Ox 97.7 F 91 18 133/80 H 98 02/10/18 11:50 02/10/18 11:50 02/10/18 11:50 02/10/18 11:50 02/10/18 11:50 Pulse Oximeter Continuous Start: 02/05/18 18: 33 Freq: RTQ4 Status: Active Document 02/10/18 11:32 [facility] [place] 02/10/18 11:33 [facility] [id number] Pulse Oximetry Assessment Oxygen Saturation (92-100) 97 Oxygen Flow Rate (L/min) 2 Oxygen Delivery Method Nasal Cannula Fraction of Inspired Oxygen (FIO2) 28 Equipment Usage Equipment in Use Continuous SpO2 Machine # N 6 Intake & Output 02/09/18 02/10/18 02/11/18 06:59 06:59 06:59 Intake Total 446 390 Output Total 1999 2700 Balance -1554 -2310 Weight 132 kg 135 kg General appearance: PRESENT: no acute distress, other - Resting comfortably in bed. Open eyes to commands Cardiovascular exam: PRESENT: +S1, +S2. ABSENT: tachycardia GI/Abdominal exam: PRESENT: soft. ABSENT: tenderness Neurological exam: PRESENT: alert - Sleepy but arousable. Skin exam: PRESENT: other - Oozing noted from IV site; chronic venous stasis bilaterally with skin breakdown and oozing Results Laboratory Results: 02/09/18 05:07 02/10/18 09:57 02/10/18 09:57 Sodium 138.6 Potassium 4.9 Chloride 97 L Carbon Dioxide 27 Anion Gap 15 BUN 59 H Creatinine 6.18 H Est GFR ( Amer) 11 L Est GFR (Non-Af Amer) 9 L Glucose 202 H Calcium 8.7 02/05/18 06:29 NT-Pro-B Natriuret Pep 4820 H Impressions: Venous Doppler Study 02/02/18 00:00 IMPRESSION: NO EVIDENCE DVT OR SVT IN EITHER LEG. Chest X-Ray 02/06/18 06:00 IMPRESSION: Persistent cardiomegaly. Modified Barium Swallow 02/07/18 00:00 IMPRESSION: LARYNGEAL PENETRATION WITH THIN AND NECTAR THICK CONSISTENCIES. TRACHEAL ASPIRATION SEEN FROM RESIDUALS.PLEASE SEE SPEECH PATHOLOGIST REPORT FOR OTHER FINDINGS AND RECOMMENDATIONS. Soft Tissue Neck CT 02/07/18 00:00 IMPRESSION: 1. NO SIGNIFICANT FINDING IN THE SOFT TISSUES OF THE NECK. 2. MAXILLARY SINUS DISEASE. 3. PATCHY GROUND-GLASS OPACITIES IN THE UPPER LOBES, RIGHT GREATER THAN LEFT. MAY BE DUE TO ATELECTASIS, INFLAMMATION, OR INFECTION. Renal Ultrasound 02/07/18 17:29 IMPRESSION: CHRONIC MEDICAL RENAL DISEASE. NO HYDRONEPHROSIS. Assessment & Plan - Diagnosis (1) Somnolence Is this a current diagnosis for this admission?: Yes Plan: Has been on-going for last 3 days. Initial concern that patient is worse today. LIkely due to uremia from ARF. ABG obtained today and patient has mild hypercapnic acidosis. Baseline unknown however patient likly has MARC given body habitus. No sedating medications (other than Lyrica which was not given) today. Blood sugars have not been low. - Discussed with Nephrology at 2pm (Dr. Henson) who felt that patient was better today compared to last 2 days. Was arousable upon questioning and speech was more fluent. she did NOT feel that dialysis today was indicated given improved kidney #s. Plan is to repeat dialysis tomorrow. - Low threshold for repeating ABG if felt indicated. Consider BiPAP or mechanical ventilation to assist with gas exchange if indicated. Not required at this time. - Avoid sedating medications (2) Acute kidney failure Qualifiers: Acute renal failure type: unspecified Qualified Code(s): N17.9 - Acute kidney failure, unspecified Is this a current diagnosis for this admission?: Yes Plan: [place] to be due to Vanc toxicity (trough was 36) and infection. Has right groin TDC and received HD on 02/08 and 02/09. Electrolytes improved - Continue to monitor BMP and UOP - Repeat HD on 02/11 - Renal following, appreciate recommendations (3) Atrial fibrillation Qualifiers: Atrial fibrillation type: paroxysmal Qualified Code(s): I48.0 - Paroxysmal atrial fibrillation Is this a current diagnosis for this admission?: Yes (4) Diabetes Qualifiers: Diabetes mellitus type: type 2 Diabetes mellitus intermediate insulin use: unspecified manager long term care insulin use status Diabetes mellitus complication status : without complication Qualified Code(s): E11.9 - Type 2 diabetes mellitus without complications Is this a current diagnosis for this admission?: Yes (5) Aspiration into airway Qualifiers: Encounter type: initial encounter Qualified Code(s): T17.908A - Unspecified foreign body in respiratory tract, part unspecified causing other injury, initial encounter Is this a current diagnosis for this admission?: Yes Plan: Aspiration risk. Modified barium swallow suggests pooling of food around the vallecula. - If not improved, will need to have GOC with family and discuss benefits/cons of PEG tube. - Time Time Spent with patient: 15-24 minutes
[2018-02-10] MEDS: CETIRIZINE 10 MG TABLET PO SCH (22:11)
[2018-02-10] MEDS: ATORVASTATIN CALCIUM 80 MG TABLET PO SCH (22:18)
[2018-02-11] MEDS: DILTIAZEM HCL 30 MG TABLET PO SCH ×4 (00:40→17:05)
[2018-02-11] MEDS: IPRATROPIUM/ALBUTEROL 0.5-2.5 MG/3 ML AMPUL NEB SCH ×4 (02:23→20:07)
[2018-02-11] MEDS ORDERED: NORMAL SALINE 1000 ML 1,000 ML IV PRN (05:00)
[2018-02-11] MEDS: PREGABALIN 75 MG CAPSULE PO SCH (05:35)
[2018-02-11] MEDS: LEVOTHYROXINE SODIUM 0.15 MG TABLET PO SCH (05:35)
[2018-02-11 05:59] LABS: HEMOGLOBIN 10.9 g/dL (13.5-17.0); MEAN CORPUSCULAR HEMOGLOBIN 30.4 pg (27.0-33.4); MEAN CORPUSCULAR VOLUME 90 fl (80-97); RED BLOOD COUNT 3.58 10^6/uL (4.35-5.55); RED CELL DISTRIBUTION WIDTH 15.6 % (11.5-14.0); WHITE BLOOD COUNT 11.5 10^3/uL (4.0-10.5)
[2018-02-11 06:08] LABS: ANION GAP 17 (5-19); BLOOD UREA NITROGEN 66 mg/dL (7-20); CALCIUM 8.6 mg/dL (8.4-10.2); CARBON DIOXIDE 26 mmol/L (22-30); CHLORIDE 97 mmol/L (98-107); GLUCOSE 157 mg/dL (75-110); PHOSPHORUS 9.1 mg/dL (2.5-4.5); SODIUM 139.9 mmol/L (137-145)
[2018-02-11 06:24] LABS: PLATELET COUNT 96 10^3/uL (150-450)
[2018-02-11 06:30] LABS: ABSOLUTE LYMPHOCYTES# (MANUAL) 0.8 10^3/uL (0.5-4.7); ABSOLUTE NEUTROPHILS# (MANUAL) 8.6 10^3/uL (1.7-8.2); BASOPHILS % (MANUAL) 0 % (0-2); EOSINOPHILS % (MANUAL) 1 % (0-6); LYMPHOCYTES % (MANUAL) 7 % (13-45); MONOCYTES % (MANUAL) 17 % (3-13); SEGMENTED NEUTROPHILS % (MAN) 75 % (42-78); TOTAL CELLS COUNTED 100; TOXIC GRANULATION SLIGHT
[2018-02-11 06:31] LABS: ANISOCYTOSIS SLIGHT; BURR CELLS 1+; OVALOCYTES 1+; PLATELET COMMENT ADEQUATE; PLATELET GIANT PRESENT; PLATELET LARGE PRESENT; POIKILOCYTOSIS 1+; SCHISTOCYTES 1+
[2018-02-11] MEDS: INSULIN DETEMIR 100 UNIT/ML 3 ML PEN SUBCUT SCH ×2 (08:00→21:56)
[2018-02-11] MEDS: PANTOT AC/MIN OIL/PET HY-PHL OINT 50 GM TOP SCH ×3 (08:50→17:08)
[2018-02-11] MEDS: METOPROLOL TARTRATE 50 MG TABLET PO SCH ×2 (10:00→22:04)
[2018-02-11] MEDS: FLUTICASONE NASAL SPRAY 50 MCG/SPRY 120 SPRAY/16 GM NASL SCH ×2 (10:00→21:55)
[2018-02-11 10:37] LABS: HEPATITIS C QUANTITATION HCV Not Detected IU/mL (.)
--- NOTE | 2018-02-11 11:48 | PDOC PROGRESS REPORT ---
Subjective Progress Note for:: 02/11/18 Subjective:: I am seeing the patient during dialysis treatment today. He is a still somewhat somnolent but arousable and answering my questions actually fluently. His speech although limited this much better compared to 3 days ago before his first dialysis treatment. He actually verbalized that he is feeling better today as he did yesterday when I asked him. He denies shortness of breath pain anywhere. His appetite remains to be poor. He does not really have any other complaints. So far he is tolerating dialysis without any problems. He is being monitored by our dialysis nurse. Reason For Visit: VENOUS STASIS,CELLULITIS Physical Exam Vital Signs: Temp Pulse Resp BP Pulse Ox 98.2 F 94 18 126/68 H 99 02/11/18 08:00 02/11/18 08:11 02/11/18 08:11 02/11/18 08:00 02/11/18 08:11 Pulse Oximeter Continuous Start: 02/05/18 18: 33 Freq: RTQ4 Status: Active Document 02/11/18 08:11 [facility] [place]Rec: 02/11/18 08:34 [facility] [id number] Pulse Oximetry Assessment Oxygen Saturation (92-100) 99 Oxygen Flow Rate (L/min) 2 Oxygen Delivery Method Nasal Cannula Fraction of Inspired Oxygen (FIO2) 28 Equipment Usage Equipment in Use Continuous SpO2 Machine # N 6 Intake & Output 02/10/18 02/11/18 02/12/18 06:59 06:59 06:59 Intake Total 390 236 118 Output Total 2700 1100 Balance -2310 -864 118 Weight 135 kg 132 kg Vitals during dialysis: Blood pressure 1 1/55, pulse rate of 99, blood flow rate of 250 mL/min dialysate flow rate of 500 mL/min. Exam: General appearance: PRESENT: no acute distress, lethargic but arousable and answers a few questions Head exam: PRESENT: atraumatic, normocephalic, face is less swollen and appears less puffy Eye exam: PRESENT: conjunctiva slightly pale, PERRLA. ABSENT: scleral icterus Neck exam: ABSENT: JVD Respiratory exam: PRESENT: Normal breath sounds. ABSENT: crackles, rales, rhonchi, unlabored, wheezes Cardiovascular exam: PRESENT: Regular rate rhythm -+S1, +S2. ABSENT: diastolic murmur, systolic murmur GI/Abdominal exam: PRESENT: normal bowel sounds, soft. ABSENT: guarding, mass, tenderness Extremities exam: Slightly improved grade 1 bilateral lower extremity pitting edema Neurological exam: PRESENT: alert, awake, oriented to person, place and time. Skin exam: PRESENT: dry, warm, and changes papular skin lesions over the lower extremities Results Laboratory Results: 02/11/18 05:23 02/11/18 05:23 02/10/18 02/11/18 02/11/18 14:12 05:23 05:23 WBC 11.5 H RBC 3.58 L Hgb 10.9 L Hct 32.0 L MCV 90 MCH 30.4 MCHC 34.0 RDW 15.6 H Plt Count 96 L Seg Neutrophils % Not Reportable Lymphocytes % Not Reportable Monocytes % Not Reportable Eosinophils % Not Reportable Basophils % Not Reportable Absolute Neutrophils Not Reportable Absolute Lymphocytes Not Reportable Absolute Monocytes Not Reportable Absolute Eosinophils Not Reportable Absolute Basophils Not Reportable Carbonic Acid 1.56 H HCO3/H2CO3 Ratio 15:1 ABG pH 7.29 L ABG pCO2 51.9 H ABG pO2 88.9 ABG HCO3 24.5 H ABG O2 Saturation 95.8 ABG Base Excess -2.5 FiO2 1.5L Sodium 139.9 Potassium 5.0 Chloride 97 L Carbon Dioxide 26 Anion Gap 17 BUN 66 H Creatinine 7.05 H Est GFR ( Amer) 10 L Est GFR (Non-Af Amer) 8 L Glucose 157 H Calcium 8.6 Phosphorus 9.1 H 02/05/18 06:29 NT-Pro-B Natriuret Pep 4820 H Impressions: Venous Doppler Study 02/02/18 00:00 IMPRESSION: NO EVIDENCE DVT OR SVT IN EITHER LEG. Chest X-Ray 02/06/18 06:00 IMPRESSION: Persistent cardiomegaly. Modified Barium Swallow 02/07/18 00:00 IMPRESSION: LARYNGEAL PENETRATION WITH THIN AND NECTAR THICK CONSISTENCIES. TRACHEAL ASPIRATION SEEN FROM RESIDUALS.PLEASE SEE SPEECH PATHOLOGIST REPORT FOR OTHER FINDINGS AND RECOMMENDATIONS. Soft Tissue Neck CT 02/07/18 00:00 IMPRESSION: 1. NO SIGNIFICANT FINDING IN THE SOFT TISSUES OF THE NECK. 2. MAXILLARY SINUS DISEASE. 3. PATCHY GROUND-GLASS OPACITIES IN THE UPPER LOBES, RIGHT GREATER THAN LEFT. MAY BE DUE TO ATELECTASIS, INFLAMMATION, OR INFECTION. Renal Ultrasound 02/07/18 17:29 IMPRESSION: CHRONIC MEDICAL RENAL DISEASE. NO HYDRONEPHROSIS. Assessment & Plan - Diagnosis (1) Acute kidney injury Is this a current diagnosis for this admission?: Yes Plan: Most likely secondary to vancomycin toxicity currently with worsening uremic symptoms. Urinalysis unable to be collected. Kidney ultrasound is negative for any hydronephrosis but has some increased echogenicity. No eosinophilia. Due to worsening uremic symptoms with decline in mental status, hyperkalemia and metabolic acidosis the patient needed urgent hemodialysis treatment and was started on hemodialysis on 02/08. Dr. Morton the hospitalist and myself signed a consent for the patient for medical purpose since there is no family members to sign consent and there is no guardianship yet. We will do dialysis today for 3 hours, using the patient's right femoral trialysis catheter, with 2 potassium bath, blood flow rate of 250 mL per minute , dialysate flow rate of 5 mL per minute, ultrafiltration 2-3 L as tolerated, no heavy and no Procrit. Patient will be monitored throughout dialysis treatment today by our dialysis nurse. As for the patient's mental status changes, as I mentioned above he is actually better considering what he was 3 days ago. I am sure uremia is a contributory factor but we are already doing our part in doing dialysis treatment appropriately. We will plan for next dialysis treatment on Wednesday unless his kidney function start showing some recovery. If his kidney function does not show any renal recovery next week I think we should go ahead and place a PermCath for preparation for continuation of dialysis support evenness out outpatient whenever he gets discharge. (2) Somnolence Is this a current diagnosis for this admission?: Yes Plan: Patient has been lethargic and somnolent since 4 days ago when I first saw the patient. Patient is actually a little bit more arousable and speech is improved for the last couple days. Uremia is for sure a contributory factor but patient is already being dialyzed. I will discontinue the patient's pregabalin since this could also cause somnolence. (3) Cellulitis of lower extremity Qualifiers: Laterality: right Qualified Code(s): L03.115 - Cellulitis of right lower limb Is this a current diagnosis for this admission?: Yes Plan: Is still currently on antibiotics. He is skin lesions seems to be unusual. We will check for vasculitis, workup pending. (4) Venous stasis dermatitis of both lower extremities Is this a current diagnosis for this admission?: Yes (5) Hyperphosphatemia Is this a current diagnosis for this admission?: Yes Plan: I will start him on PhosLo 667 mg 2 capsules with meals if the patient is able to take it. (6) Aspiration into airway Qualifiers: Encounter type: initial encounter Qualified Code(s): T17.908A - Unspecified foreign body in respiratory tract, part unspecified causing other injury, initial encounter Is this a current diagnosis for this admission?: Yes (7) Diabetes Qualifiers: Diabetes mellitus type: type 2 Diabetes mellitus terminal carman insulin use: unspecified terminal carman insulin use status Diabetes mellitus complication status : without complication Qualified Code(s): E11.9 - Type 2 diabetes mellitus without complications Is this a current diagnosis for this admission?: Yes - Time Time with patient: 15-25 minutes
--- NOTE | 2018-02-11 13:39 | PDOC PROGRESS REPORT ---
Subjective Progress Note for:: 02/11/18 Subjective:: Per conversation with RN yesterday evening, more awake and interactive. No overnight events. This AM, again is somnolent. Plan for HD this morning. Appears comfortable Reason For Visit: VENOUS STASIS,CELLULITIS Physical Exam Vital Signs: Temp Pulse Resp BP Pulse Ox 98.2 F 94 18 126/68 H 99 02/11/18 08:00 02/11/18 08:11 02/11/18 08:11 02/11/18 08:00 02/11/18 08:11 Pulse Oximeter Continuous Start: 02/05/18 18: 33 Freq: RTQ4 Status: Active Document 02/11/18 08:11 [facility] [place]11/18 08:34 [facility] [id number] Pulse Oximetry Assessment Oxygen Saturation (92-100) 99 Oxygen Flow Rate (L/min) 2 Oxygen Delivery Method Nasal Cannula Fraction of Inspired Oxygen (FIO2) 28 Equipment Usage Equipment in Use Continuous SpO2 Machine # N 6 Intake & Output 02/10/18 02/11/18 02/12/18 06:59 06:59 06:59 Intake Total 390 236 118 Output Total 2700 1100 Balance -2310 -864 118 Weight 135 kg 132 kg General appearance: PRESENT: no acute distress, obese, other - Sleeping, wakes up with verbal and physical stimuli however goes back to sleep Eye exam: PRESENT: other - Facial swelling improved Mouth exam: PRESENT: moist Respiratory exam: PRESENT: unlabored GI/Abdominal exam: PRESENT: soft. ABSENT: tenderness Extremities exam: PRESENT: +1 edema - slightly improved Neurological exam: PRESENT: other - Unable to do neuro exam due to excessive somnolence Results Laboratory Results: 02/11/18 05:23 02/11/18 05:23 02/10/18 02/11/18 02/11/18 14:12 05:23 05:23 WBC 11.5 H RBC 3.58 L Hgb 10.9 L Hct 32.0 L MCV 90 MCH 30.4 MCHC 34.0 RDW 15.6 H Plt Count 96 L Seg Neutrophils % Not Reportable Lymphocytes % Not Reportable Monocytes % Not Reportable Eosinophils % Not Reportable Basophils % Not Reportable Absolute Neutrophils Not Reportable Absolute Lymphocytes Not Reportable Absolute Monocytes Not Reportable Absolute Eosinophils Not Reportable Absolute Basophils Not Reportable Carbonic Acid 1.56 H HCO3/H2CO3 Ratio 15:1 ABG pH 7.29 L ABG pCO2 51.9 H ABG pO2 88.9 ABG HCO3 24.5 H ABG O2 Saturation 95.8 ABG Base Excess -2.5 FiO2 1.5L Sodium 139.9 Potassium 5.0 Chloride 97 L Carbon Dioxide 26 Anion Gap 17 BUN 66 H Creatinine 7.05 H Est GFR ( Amer) 10 L Est GFR (Non-Af Amer) 8 L Glucose 157 H Calcium 8.6 Phosphorus 9.1 H 02/05/18 06:29 NT-Pro-B Natriuret Pep 4820 H Impressions: Venous Doppler Study 02/02/18 00:00 IMPRESSION: NO EVIDENCE DVT OR SVT IN EITHER LEG. Chest X-Ray 02/06/18 06:00 IMPRESSION: Persistent cardiomegaly. Modified Barium Swallow 02/07/18 00:00 IMPRESSION: LARYNGEAL PENETRATION WITH THIN AND NECTAR THICK CONSISTENCIES. TRACHEAL ASPIRATION SEEN FROM RESIDUALS.PLEASE SEE SPEECH PATHOLOGIST REPORT FOR OTHER FINDINGS AND RECOMMENDATIONS. Soft Tissue Neck CT 02/07/18 00:00 IMPRESSION: 1. NO SIGNIFICANT FINDING IN THE SOFT TISSUES OF THE NECK. 2. MAXILLARY SINUS DISEASE. 3. PATCHY GROUND-GLASS OPACITIES IN THE UPPER LOBES, RIGHT GREATER THAN LEFT. MAY BE DUE TO ATELECTASIS, INFLAMMATION, OR INFECTION. Renal Ultrasound 02/07/18 17:29 IMPRESSION: CHRONIC MEDICAL RENAL DISEASE. NO HYDRONEPHROSIS. Assessment & Plan - Diagnosis (1) Somnolence Is this a current diagnosis for this admission?: Yes Plan: Has been on-going for last 4 days. Likely due to uremia from ARF. ABG obtained yesterday and shows mild hypercapnic acidosis. Not currently receiving sedating medications. Blood sugars not low. - Received dialysis today (#3 session) - Continue to monitor for changes/improvement in mental status - Avoid sedating medications (2) Acute kidney failure Qualifiers: Acute renal failure type: unspecified Qualified Code(s): N17.9 - Acute kidney failure, unspecified Is this a current diagnosis for this admission?: Yes Plan: [place] to be due to Vanc toxicity (trough was 36) and infection. Has right groin TDC and received HD on 02/08, 02/09, again today 02/11. Electrolytes improved - Continue to monitor BMP and UOP - Renal following, appreciate recommendations - May need permanent catheter depending on progress over next few days (3) Atrial fibrillation Qualifiers: Atrial fibrillation type: paroxysmal Qualified Code(s): I48.0 - Paroxysmal atrial fibrillation Is this a current diagnosis for this admission?: Yes Plan: Rate controlled. Continue lower dose of Apixiban due to poor renal function (4) Diabetes Qualifiers: Diabetes mellitus type: type 2 Diabetes mellitus truck terminal manager insulin use: unspecified truck terminal manager insulin use status Diabetes mellitus complication status : without complication Qualified Code(s): E11.9 - Type 2 diabetes mellitus without complications Is this a current diagnosis for this admission?: Yes Plan: Blood sugars well controlled; CTM (5) Aspiration into airway Qualifiers: Encounter type: initial encounter Qualified Code(s): T17.908A - Unspecified foreign body in respiratory tract, part unspecified causing other injury, initial encounter Is this a current diagnosis for this admission?: Yes Plan: Aspiration risk. Modified barium swallow suggests pooling of food around the vallecula. - If not improved, will need to have GOC with family and discuss benefits/cons of PEG tube. - Time Time Spent with patient: 15-24 minutes
[2018-02-11] MEDS: LACTOBACILLUS ACIDOPHILUS 250 MG TAB PO SCH ×2 (15:04→17:50)
[2018-02-11] MEDS: CALCIUM ACETATE 667 MG CAPSULE PO SCH ×2 (15:06→16:56)
[2018-02-11] MEDS: RISPERIDONE 1 MG TABLET PO SCH (16:55)
[2018-02-11] MEDS: PREDNISONE 20 MG TABLET PO SCH (17:04)
[2018-02-11] MEDS: ASPIRIN 325 MG TABLET PO SCH (17:04)
[2018-02-11] MEDS ORDERED: METOPROLOL TARTRATE PF/INJ 5 MG/5 ML SDV IV ONE (18:15)
[2018-02-11] MEDS: INSULIN LISPRO 100 UNIT/ML 3 ML VIAL SUBCUT PRN (21:55)
[2018-02-11] MEDS: ATORVASTATIN CALCIUM 80 MG TABLET PO SCH (21:55)
[2018-02-11] MEDS: CETIRIZINE 10 MG TABLET PO SCH (21:55)
[2018-02-12] MEDS: DILTIAZEM HCL 30 MG TABLET PO SCH ×4 (00:57→17:57)
[2018-02-12] MEDS: IPRATROPIUM/ALBUTEROL 0.5-2.5 MG/3 ML AMPUL NEB SCH ×4 (02:16→20:12)
[2018-02-12 04:54] LABS: HEMATOCRIT 32.1 % (37.9-51.0); HEMOGLOBIN 10.8 g/dL (13.5-17.0); MEAN CORPUSCULAR HEMOGLOBIN 30.2 pg (27.0-33.4); MEAN CORPUSCULAR HGB CONC 33.8 g/dL (32.0-36.0); MEAN CORPUSCULAR VOLUME 90 fl (80-97); PLATELET COUNT 101 10^3/uL (150-450); RED BLOOD COUNT 3.58 10^6/uL (4.35-5.55); RED CELL DISTRIBUTION WIDTH 15.4 % (11.5-14.0)
[2018-02-12 05:15] LABS: ANION GAP 15 (5-19); BLOOD UREA NITROGEN 58 mg/dL (7-20); CALCIUM 8.5 mg/dL (8.4-10.2); CARBON DIOXIDE 28 mmol/L (22-30); CHLORIDE 96 mmol/L (98-107); GLUCOSE 302 mg/dL (75-110); SODIUM 138.9 mmol/L (137-145)
[2018-02-12] MEDS: LEVOTHYROXINE SODIUM 0.15 MG TABLET PO SCH (06:39)
[2018-02-12] MEDS: INSULIN LISPRO 100 UNIT/ML 3 ML VIAL SUBCUT PRN ×4 (07:56→21:48)
[2018-02-12] MEDS: CALCIUM ACETATE 667 MG CAPSULE PO SCH ×3 (07:57→17:57)
[2018-02-12] MEDS: INSULIN DETEMIR 100 UNIT/ML 3 ML PEN SUBCUT SCH ×2 (07:58→21:47)
[2018-02-12] MEDS: METOPROLOL TARTRATE 50 MG TABLET PO SCH ×2 (10:31→21:47)
[2018-02-12] MEDS: ASPIRIN 325 MG TABLET PO SCH (10:32)
[2018-02-12] MEDS: LACTOBACILLUS ACIDOPHILUS 250 MG TAB PO SCH ×2 (10:32→17:58)
[2018-02-12] MEDS: FLUTICASONE NASAL SPRAY 50 MCG/SPRY 120 SPRAY/16 GM NASL SCH ×2 (10:32→21:47)
[2018-02-12] MEDS: PREDNISONE 20 MG TABLET PO SCH (10:32)
[2018-02-12] MEDS: PANTOT AC/MIN OIL/PET HY-PHL OINT 50 GM TOP SCH ×3 (10:37→17:59)
[2018-02-12] MEDS: RISPERIDONE 1 MG TABLET PO SCH (11:40)
--- NOTE | 2018-02-12 16:57 | PDOC PROGRESS REPORT ---
Subjective Progress Note for:: 02/12/18 Subjective:: No adverse events overnight. No fevers. Blood sugars have been higher than they were previously. His nurse says that he is more alert today than he has been previously, but he still seems a bit altered and delayed. Reason For Visit: VENOUS STASIS,CELLULITIS Physical Exam Vital Signs: Temp Pulse Resp BP Pulse Ox 97.9 F 89 16 124/89 H 93 02/12/18 12:06 02/12/18 14:00 02/12/18 14:00 02/12/18 12:06 02/12/18 16:07 Pulse Oximeter Continuous Start: 02/05/18 18: 33 Freq: RTQ4 Status: Active Document 02/12/18 16:07 J (Rec: 02/12/18 16:08 [id number]) Pulse Oximetry Assessment Oxygen Saturation (92-100) 93 Oxygen Flow Rate (L/min) 1 Oxygen Delivery Method Nasal Cannula Fraction of Inspired Oxygen (FIO2) 24 Equipment Usage Equipment in Use Continuous SpO2 Machine # 6 Intake & Output 02/11/18 02/12/18 02/13/18 06:59 06:59 06:59 Intake Total 236 355 384 Output Total 1100 2200 Balance -864 -1845 384 Weight 132 kg 125.5 kg General appearance: PRESENT: disheveled, morbidly obese Respiratory exam: PRESENT: rales, rhonchi, symmetrical, unlabored. ABSENT: accessory muscle use, tachypnea, wheezes Cardiovascular exam: PRESENT: irregular rhythm Vascular exam: PRESENT: normal capillary refill GI/Abdominal exam: PRESENT: normal bowel sounds, soft. ABSENT: guarding, rebound, tenderness Extremities exam: PRESENT: pedal edema - Left foot, +1 edema - Right lower extremity. ABSENT: joint swelling Musculoskeletal exam: ABSENT: deformity Neurological exam: PRESENT: altered, oriented to person, oriented to place Skin exam: PRESENT: petechiae, rash - Some of the purpura was palpable, and some of it had some superficial ulceration while others had scabbing. This was limited to the lower extremities below the knee. Results Laboratory Results: 02/12/18 04:04 02/12/18 04:04 02/12/18 02/12/18 04:04 04:04 WBC 11.0 H RBC 3.58 L Hgb 10.8 L Hct 32.1 L MCV 90 MCH 30.2 MCHC 33.8 RDW 15.4 H Plt Count 101 L Sodium 138.9 Potassium 5.0 Chloride 96 L Carbon Dioxide 28 Anion Gap 15 BUN 58 H Creatinine 5.73 H Est GFR ( Amer) 12 L Est GFR (Non-Af Amer) 10 L Glucose 302 H Calcium 8.5 02/05/18 06:29 NT-Pro-B Natriuret Pep 4820 H Impressions: Venous Doppler Study 02/02/18 00:00 IMPRESSION: NO EVIDENCE DVT OR SVT IN EITHER LEG. Chest X-Ray 02/06/18 06:00 IMPRESSION: Persistent cardiomegaly. Modified Barium Swallow 02/07/18 00:00 IMPRESSION: LARYNGEAL PENETRATION WITH THIN AND NECTAR THICK CONSISTENCIES. TRACHEAL ASPIRATION SEEN FROM RESIDUALS.PLEASE SEE SPEECH PATHOLOGIST REPORT FOR OTHER FINDINGS AND RECOMMENDATIONS. Soft Tissue Neck CT 02/07/18 00:00 IMPRESSION: 1. NO SIGNIFICANT FINDING IN THE SOFT TISSUES OF THE NECK. 2. MAXILLARY SINUS DISEASE. 3. PATCHY GROUND-GLASS OPACITIES IN THE UPPER LOBES, RIGHT GREATER THAN LEFT. MAY BE DUE TO ATELECTASIS, INFLAMMATION, OR INFECTION. Renal Ultrasound 02/07/18 17:29 IMPRESSION: CHRONIC MEDICAL RENAL DISEASE. NO HYDRONEPHROSIS. Assessment & Plan - Diagnosis (1) Acute kidney injury Is this a current diagnosis for this admission?: Yes Plan: Suspected ATN due to vancomycin. That is obviously been discontinued. He is getting hemodialysis. Nephrology is consulted. Plan for the next treatment is on Wednesday. We will monitor his electrolytes, volume status, creatinine, and mental status over the weekend. (2) Somnolence Is this a current diagnosis for this admission?: Yes Plan: I believe that this is a metabolic encephalopathy secondary to the above. He has shown some improvement today. We are holding any sort of sedating medication. 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 Some of this may have been infected at some point, but the appearance of his legs at this time is that of a vasculitis. He does not have any other evidence at this time of an acute ongoing infection such as a cellulitis. I am going to check to see if a biopsy has been done, and if not, we may need to get a punch biopsy on him. I will also check to see if he is on steroids, and if he needs a biopsy will get that first and then probably put him on some prednisone. - Time Time Spent with patient: 35 or more minutes
[2018-02-12 18:31] LABS: ANTINUCLEAR ANTIBODIES Negative (Negative)
[2018-02-12] MEDS: CETIRIZINE 10 MG TABLET PO SCH (21:47)
[2018-02-12] MEDS: ATORVASTATIN CALCIUM 80 MG TABLET PO SCH (21:47)
[2018-02-13] MEDS: IPRATROPIUM/ALBUTEROL 0.5-2.5 MG/3 ML AMPUL NEB SCH ×4 (02:43→20:11)
[2018-02-13 04:59] LABS: ANION GAP 15 (5-19); CALCIUM 8.8 mg/dL (8.4-10.2); CARBON DIOXIDE 27 mmol/L (22-30); CHLORIDE 95 mmol/L (98-107); GLUCOSE 398 mg/dL (75-110); SODIUM 137.2 mmol/L (137-145)
[2018-02-13 05:42] LABS: BLOOD UREA NITROGEN 79 mg/dL (7-20)
[2018-02-13] MEDS: DILTIAZEM HCL 30 MG TABLET PO SCH ×5 (06:52→23:10)
[2018-02-13] MEDS: LEVOTHYROXINE SODIUM 0.15 MG TABLET PO SCH (06:52)
[2018-02-13] MEDS: INSULIN LISPRO 100 UNIT/ML 3 ML VIAL SUBCUT PRN ×4 (08:40→22:40)
[2018-02-13] MEDS: CALCIUM ACETATE 667 MG CAPSULE PO SCH ×3 (08:41→17:05)
[2018-02-13] MEDS: INSULIN DETEMIR 100 UNIT/ML 3 ML PEN SUBCUT SCH ×2 (08:52→21:56)
[2018-02-13] MEDS: ASPIRIN 325 MG TABLET PO SCH (09:45)
[2018-02-13] MEDS: LACTOBACILLUS ACIDOPHILUS 250 MG TAB PO SCH ×2 (09:45→17:05)
[2018-02-13] MEDS: FLUTICASONE NASAL SPRAY 50 MCG/SPRY 120 SPRAY/16 GM NASL SCH ×2 (09:45→21:53)
[2018-02-13] MEDS: METOPROLOL TARTRATE 50 MG TABLET PO SCH ×2 (09:45→21:59)
[2018-02-13] MEDS: PREDNISONE 20 MG TABLET PO SCH (09:45)
[2018-02-13] MEDS: RISPERIDONE 1 MG TABLET PO SCH (09:46)
[2018-02-13] MEDS: PANTOT AC/MIN OIL/PET HY-PHL OINT 50 GM TOP SCH ×3 (09:46→17:06)
--- NOTE | 2018-02-13 15:07 | PDOC PROGRESS REPORT ---
Subjective Progress Note for:: 02/13/18 Subjective:: No adverse events overnight. No fevers. He still seems a bit altered and delayed, comparable to yesterday. Blood sugars have remained elevated in the 300s and it looks like at some point his usual home insulin doses were lowered. He was also started on some prednisone for a possible respiratory issue earlier in his hospitalization. I did an extensive review of his chart yesterday regarding the skin problem on his legs. Based on descriptions of the leg examinations, it seems like his current situation has gotten better with antibiotics and so I decided not to do a biopsy at this time. Reason For Visit: VENOUS STASIS,CELLULITIS Physical Exam Vital Signs: Temp Pulse Resp BP Pulse Ox 98.3 F 91 18 115/69 93 02/13/18 12:00 02/13/18 13:56 02/13/18 13:56 02/13/18 12:00 02/13/18 13:56 Pulse Oximeter Continuous Start: 02/05/18 18: 33 Freq: RTQ4 Status: Active Document 02/13/18 13:56 JDR (Rec: 02/13/18 13:57 [email or web address]) Pulse Oximetry Assessment Oxygen Saturation (92-100) 93 Oxygen Flow Rate (L/min) 1 Oxygen Delivery Method Nasal Cannula Equipment Usage Equipment in Use Continuous Pulse Oximeter 24 Hour Charge Charge Now Continuous SpO2 Machine # 6 Intake & Output 02/12/18 02/13/18 02/14/18 06:59 06:59 06:59 Intake Total 355 768 Output Total 2200 Balance -1845 768 Weight 125.5 kg 126.4 kg General appearance: PRESENT: disheveled, morbidly obese Respiratory exam: PRESENT: rales, rhonchi, symmetrical, unlabored. ABSENT: accessory muscle use, tachypnea, wheezes Cardiovascular exam: PRESENT: irregular rhythm Vascular exam: PRESENT: normal capillary refill GI/Abdominal exam: PRESENT: normal bowel sounds, soft. ABSENT: guarding, rebound, tenderness Extremities exam: PRESENT: pedal edema - Left foot, +1 edema - Right lower extremity. ABSENT: joint swelling Musculoskeletal exam: ABSENT: deformity Neurological exam: PRESENT: altered, oriented to person, oriented to place Skin exam: PRESENT: petechiae, rash - Some of the purpura was palpable, and some of it had some superficial ulceration while others had scabbing. This was limited to the lower extremities below the knee. Results Laboratory Results: 02/12/18 04:04 02/13/18 03:59 02/13/18 03:59 Sodium 137.2 Potassium 5.0 Chloride 95 L Carbon Dioxide 27 Anion Gap 15 BUN 79 H D Creatinine 6.44 H Est GFR ( Amer) 11 L Est GFR (Non-Af Amer) 9 L Glucose 398 H Calcium 8.8 02/05/18 06:29 NT-Pro-B Natriuret Pep 4820 H Impressions: Venous Doppler Study 02/02/18 00:00 IMPRESSION: NO EVIDENCE DVT OR SVT IN EITHER LEG. Chest X-Ray 02/06/18 06:00 IMPRESSION: Persistent cardiomegaly. Modified Barium Swallow 02/07/18 00:00 IMPRESSION: LARYNGEAL PENETRATION WITH THIN AND NECTAR THICK CONSISTENCIES. TRACHEAL ASPIRATION SEEN FROM RESIDUALS.PLEASE SEE SPEECH PATHOLOGIST REPORT FOR OTHER FINDINGS AND RECOMMENDATIONS. Soft Tissue Neck CT 02/07/18 00:00 IMPRESSION: 1. NO SIGNIFICANT FINDING IN THE SOFT TISSUES OF THE NECK. 2. MAXILLARY SINUS DISEASE. 3. PATCHY GROUND-GLASS OPACITIES IN THE UPPER LOBES, RIGHT GREATER THAN LEFT. MAY BE DUE TO ATELECTASIS, INFLAMMATION, OR INFECTION. Renal Ultrasound 02/07/18 17:29 IMPRESSION: CHRONIC MEDICAL RENAL DISEASE. NO HYDRONEPHROSIS. Assessment & Plan - Diagnosis (1) Acute kidney injury Is this a current diagnosis for this admission?: Yes Plan: Suspected ATN due to vancomycin. That is obviously been discontinued. He is getting hemodialysis. Nephrology is consulted. Plan for the next treatment is on Wednesday. We will monitor his electrolytes, volume status, creatinine, and mental status over the weekend. (2) Somnolence Is this a current diagnosis for this admission?: Yes Plan: I believe that this is a metabolic encephalopathy secondary to the above. He has shown some continued improvement. We are holding any sort of sedating medication. (3) Vasculitis Is this a current diagnosis for this admission?: Yes Plan: He was already put on a lower dose of prednisone for a possible respiratory issue several days ago. I do not know if that had anything to do with the improvement of his legs, but it sounds like they were diffusely red with areas of scabbing in different stages when he was first admitted. He also has improved with antibiotics apparently. If he begins to show development of new lesions on his legs despite antibiotics and the lower dose prednisone that he is on currently, at that point I would have a strong suspicion for vasculitis and would proceed with biopsy, but at this time the picture is somewhat murky. - Time Time Spent with patient: 35 or more minutes
[2018-02-13] MEDS: ATORVASTATIN CALCIUM 80 MG TABLET PO SCH (21:58)
[2018-02-13] MEDS: CETIRIZINE 10 MG TABLET PO SCH (21:59)
[2018-02-13] MEDS ORDERED: INSULIN REG, HUMAN 100 UNIT/ML 3 ML VIAL (PYX) IV ONE (22:00)
[2018-02-14] MEDS: IPRATROPIUM/ALBUTEROL 0.5-2.5 MG/3 ML AMPUL NEB SCH ×4 (02:31→19:53)
[2018-02-14] MEDS ORDERED: INSULIN REG, HUMAN 100 UNIT/ML 3 ML VIAL (PYX) SUBCUT ONE (03:00)
[2018-02-14] MEDS ORDERED: INSULIN REG, HUMAN 100 UNIT/ML 3 ML VIAL (PYX) IV ONE (03:45)
[2018-02-14] MEDS ORDERED: NORMAL SALINE 1000 ML 1,000 ML IV PRN (05:00)
[2018-02-14] MEDS: LEVOTHYROXINE SODIUM 0.15 MG TABLET PO SCH (05:24)
[2018-02-14] MEDS: DILTIAZEM HCL 30 MG TABLET PO SCH ×3 (05:24→18:57)
[2018-02-14 05:30] LABS: HEMATOCRIT 30.8 % (37.9-51.0); HEMOGLOBIN 10.5 g/dL (13.5-17.0); MEAN CORPUSCULAR HEMOGLOBIN 30.7 pg (27.0-33.4); MEAN CORPUSCULAR HGB CONC 34.3 g/dL (32.0-36.0); MEAN CORPUSCULAR VOLUME 90 fl (80-97); RED BLOOD COUNT 3.44 10^6/uL (4.35-5.55); RED CELL DISTRIBUTION WIDTH 15.4 % (11.5-14.0); WHITE BLOOD COUNT 17.3 10^3/uL (4.0-10.5)
[2018-02-14 05:40] LABS: PLATELET COUNT 95 10^3/uL (150-450)
[2018-02-14 05:53] LABS: ANION GAP 16 (5-19); BLOOD UREA NITROGEN 102 mg/dL (7-20); CALCIUM 9.1 mg/dL (8.4-10.2); CARBON DIOXIDE 26 mmol/L (22-30); CHLORIDE 93 mmol/L (98-107); GLUCOSE 335 mg/dL (75-110); POTASSIUM 5.4 mmol/L (3.6-5.0)
[2018-02-14 05:56] LABS: ABSOLUTE LYMPHOCYTES# (MANUAL) 0.9 10^3/uL (0.5-4.7); ABSOLUTE NEUTROPHILS# (MANUAL) 15.1 10^3/uL (1.7-8.2); BAND NEUTROPHILS % (MANUAL) 2 % (3-5); BASOPHILS % (MANUAL) 0 % (0-2); EOSINOPHILS % (MANUAL) 2 % (0-6); LYMPHOCYTES % (MANUAL) 5 % (13-45); MONOCYTES % (MANUAL) 6 % (3-13); SEGMENTED NEUTROPHILS % (MAN) 85 % (42-78); TOTAL CELLS COUNTED 100
[2018-02-14 05:57] LABS: ANISOCYTOSIS SLIGHT; TOXIC GRANULATION 1+; TOXIC VACUOLATION PRESENT
[2018-02-14 05:58] LABS: BURR CELLS 1+; PAPPENHEIMER BODIES PRESENT; PLATELET COMMENT ADEQUATE; PLATELET LARGE PRESENT
[2018-02-14] MEDS: CALCIUM ACETATE 667 MG CAPSULE PO SCH ×3 (08:10→18:53)
[2018-02-14] MEDS: INSULIN DETEMIR 100 UNIT/ML 3 ML PEN SUBCUT SCH ×2 (08:10→21:40)
[2018-02-14] MEDS: INSULIN LISPRO 100 UNIT/ML 3 ML VIAL SUBCUT PRN ×3 (08:14→21:43)
--- NOTE | 2018-02-14 11:36 | PDOC PROGRESS REPORT ---
Subjective Progress Note for:: 02/14/18 Reason For Visit: Patient seen on dialysis. He is undergoing dialysis without any issues.He denies any history of chest pains or shortness of breath. However he admits to coughing intermittently especially when he eats. No complaints of any fever or chills. He is incontinent of urine. He says he is moving his bowels all right. His mental status is better but not back yet to baseline as per review of chart and discussions done with this treating nurse on the floor Ms. Allen. Appetite is plus minus. Labs and medications were reviewed with the patient and the treating dialysis nurse. Physical Exam Vital Signs: Temp Pulse Resp BP Pulse Ox 98.6 F 92 18 116/72 94 02/14/18 07:27 02/14/18 08:24 02/14/18 08:24 02/14/18 07:27 02/14/18 08:24 Pulse Oximeter Continuous Start: 02/05/18 18: 33 Freq: RTQ4 Status: Active Document 02/14/18 08:24 JDR (Rec: 02/14/18 08:31 [id number]) Pulse Oximetry Assessment Oxygen Saturation (92-100) 94 Oxygen Flow Rate (L/min) 1 Oxygen Delivery Method Nasal Cannula Equipment Usage Equipment in Use Continuous Pulse Oximeter 24 Hour Charge Charge Now Continuous SpO2 Machine # 6 Intake & Output 02/13/18 02/14/18 02/15/18 06:59 06:59 06:59 Intake Total 768 1043 Balance 768 1043 Weight 126.4 kg 125.2 kg General appearance: PRESENT: no acute distress Respiratory exam: PRESENT: clear to auscultation sadia, crackles - Few scattered in both lungs.. ABSENT: rales, stridor Cardiovascular exam: PRESENT: +S1, +S2 GI/Abdominal exam: PRESENT: normal bowel sounds, soft. ABSENT: organomegaly, tenderness Extremities exam: PRESENT: +1 edema Neurological exam: PRESENT: alert, awake, oriented to person Psychiatric exam: PRESENT: appropriate affect Skin exam: PRESENT: rash - Few dark raised patches on his lower extremities along with chronic scarring apparently from cordero in the past.. ABSENT: erythema, mottled Results Laboratory Results: 02/14/18 04:51 02/14/18 04:51 02/14/18 02/14/18 04:51 04:51 WBC 17.3 H RBC 3.44 L Hgb 10.5 L Hct 30.8 L MCV 90 MCH 30.7 MCHC 34.3 RDW 15.4 H Plt Count 95 L Seg Neutrophils % Not Reportable Lymphocytes % Not Reportable Monocytes % Not Reportable Eosinophils % Not Reportable Basophils % Not Reportable Absolute Neutrophils Not Reportable Absolute Lymphocytes Not Reportable Absolute Monocytes Not Reportable Absolute Eosinophils Not Reportable Absolute Basophils Not Reportable Sodium 135.0 L Potassium 5.4 H Chloride 93 L Carbon Dioxide 26 Anion Gap 16 BUN 102 H Creatinine 7.50 H Est GFR ( Amer) 9 L Est GFR (Non-Af Amer) 7 L Glucose 335 H Calcium 9.1 02/05/18 06:29 NT-Pro-B Natriuret Pep 4820 H Impressions: Venous Doppler Study 02/02/18 00:00 IMPRESSION: NO EVIDENCE DVT OR SVT IN EITHER LEG. Chest X-Ray 02/06/18 06:00 IMPRESSION: Persistent cardiomegaly. Modified Barium Swallow 02/07/18 00:00 IMPRESSION: LARYNGEAL PENETRATION WITH THIN AND NECTAR THICK CONSISTENCIES. TRACHEAL ASPIRATION SEEN FROM RESIDUALS.PLEASE SEE SPEECH PATHOLOGIST REPORT FOR OTHER FINDINGS AND RECOMMENDATIONS. Soft Tissue Neck CT 02/07/18 00:00 IMPRESSION: 1. NO SIGNIFICANT FINDING IN THE SOFT TISSUES OF THE NECK. 2. MAXILLARY SINUS DISEASE. 3. PATCHY GROUND-GLASS OPACITIES IN THE UPPER LOBES, RIGHT GREATER THAN LEFT. MAY BE DUE TO ATELECTASIS, INFLAMMATION, OR INFECTION. Renal Ultrasound 02/07/18 17:29 IMPRESSION: CHRONIC MEDICAL RENAL DISEASE. NO HYDRONEPHROSIS. Assessment & Plan - Diagnosis (1) Acute kidney injury Is this a current diagnosis for this admission?: Yes Plan: Dialysis dependent.Likely combination of bank toxicity and ATN from infection. His renal numbers are not improving. He is presently undergoing dialysis without any issues. Is being supervised to ensure safe and smooth procedure. Vital signs are stable. Orders reviewed with the treating dialysis nurse. We will plan to remove between 2 and 3 L as tolerated. We will also place a Dorantes catheter for strict in ands outs.He also needs to be on diuretics which I am initiating. If patient is not responding to inpatient dialysis in the next 1 week he will have to have IJ PermCath placed for outpatient dialysis. (2) Cellulitis of lower extremity Qualifiers: Laterality: right Qualified Code(s): L03.115 - Cellulitis of right lower limb Is this a current diagnosis for this admission?: Yes Plan: Currently looks resolved. Patient on no antibiotics. Noted leukocytosis but then could be from his prednisone. However note patient is coughing and one has to be concerned about aspiration in this otherwise moribund obese gentleman. (3) Diabetes Qualifiers: Diabetes mellitus type: type 2 Diabetes mellitus bed bug exterminator insulin use: unspecified bed bug exterminator insulin use status Diabetes mellitus complication status : without complication Qualified Code(s): E11.9 - Type 2 diabetes mellitus without complications Is this a current diagnosis for this admission?: Yes Plan: Obviously need to be tightly controlled. (4) Hyperkalemia Is this a current diagnosis for this admission?: Yes Plan: Should respond to dialysis. Advised strict renal diet. (5) Metabolic acidosis Is this a current diagnosis for this admission?: Yes Plan: Has resolved since initiation of hemodialysis. Will monitor. (6) Somnolence Is this a current diagnosis for this admission?: Yes Plan: Improving with initiation of hemodialysis as his uremic component is being eliminated.
[2018-02-14] MEDS: PANTOT AC/MIN OIL/PET HY-PHL OINT 50 GM TOP SCH ×3 (13:42→18:58)
[2018-02-14] MEDS: ASPIRIN 325 MG TABLET PO SCH (13:45)
[2018-02-14] MEDS: LACTOBACILLUS ACIDOPHILUS 250 MG TAB PO SCH ×2 (13:45→18:57)
[2018-02-14] MEDS: METOPROLOL TARTRATE 50 MG TABLET PO SCH ×2 (13:45→21:44)
[2018-02-14] MEDS: PREDNISONE 20 MG TABLET PO SCH (13:45)
[2018-02-14] MEDS: FLUTICASONE NASAL SPRAY 50 MCG/SPRY 120 SPRAY/16 GM NASL SCH ×2 (13:47→21:38)
[2018-02-14] MEDS: RISPERIDONE 1 MG TABLET PO SCH (13:48)
--- NOTE | 2018-02-14 14:38 | PDOC PROGRESS REPORT ---
Subjective Progress Note for:: 02/14/18 Subjective:: Patient was seen in dialysis today. He says he is feeling better. Apparently his mental status is improving. His blood sugars have been elevated probably because he has been on prednisone and he also has been off his home insulin Reason For Visit: VENOUS STASIS,CELLULITIS Physical Exam Vital Signs: Temp Pulse Resp BP Pulse Ox 98.6 F 112 H 18 116/72 96 02/14/18 07:27 02/14/18 13:59 02/14/18 13:59 02/14/18 07:27 02/14/18 13:59 Pulse Oximeter Continuous Start: 02/05/18 18: 33 Freq: RTQ4 Status: Active Document 02/14/18 13:59 JDR (Rec: 02/14/18 14:07 [id number]) Pulse Oximetry Assessment Oxygen Saturation (92-100) 96 Oxygen Flow Rate (L/min) 1 Oxygen Delivery Method Nasal Cannula Fraction of Inspired Oxygen (FIO2) 24 Equipment Usage Equipment in Use Continuous SpO2 Machine # 6 Intake & Output 02/13/18 02/14/18 02/15/18 06:59 06:59 06:59 Intake Total 768 1043 Balance 768 1043 Weight 126.4 kg 125.2 kg General appearance: PRESENT: no acute distress, obese, well-nourished Head exam: PRESENT: atraumatic, normocephalic Eye exam: PRESENT: conjunctiva pink, EOMI, PERRLA. ABSENT: scleral icterus Ear exam: PRESENT: normal external ear exam Mouth exam: PRESENT: moist, tongue midline Neck exam: ABSENT: carotid bruit, JVD, lymphadenopathy, thyromegaly Respiratory exam: PRESENT: clear to auscultation sadia. ABSENT: rales, rhonchi, wheezes Cardiovascular exam: PRESENT: RRR. ABSENT: diastolic murmur, rubs, systolic murmur Pulses: PRESENT: normal dorsalis pedis pul Vascular exam: PRESENT: normal capillary refill GI/Abdominal exam: PRESENT: normal bowel sounds, soft. ABSENT: distended, guarding, mass, organolmegaly, rebound, tenderness Rectal exam: PRESENT: deferred Extremities exam: PRESENT: full ROM. ABSENT: calf tenderness, clubbing, pedal edema Neurological exam: PRESENT: alert, awake, oriented to place, oriented to time, oriented to situation, CN II-XII grossly intact. ABSENT: motor sensory deficit Psychiatric exam: PRESENT: appropriate affect. ABSENT: homicidal ideation, suicidal ideation Skin exam: PRESENT: dry, intact, rash. ABSENT: cyanosis Results Laboratory Results: 02/14/18 04:51 02/14/18 04:51 02/14/18 02/14/18 04:51 04:51 WBC 17.3 H RBC 3.44 L Hgb 10.5 L Hct 30.8 L MCV 90 MCH 30.7 MCHC 34.3 RDW 15.4 H Plt Count 95 L Seg Neutrophils % Not Reportable Lymphocytes % Not Reportable Monocytes % Not Reportable Eosinophils % Not Reportable Basophils % Not Reportable Absolute Neutrophils Not Reportable Absolute Lymphocytes Not Reportable Absolute Monocytes Not Reportable Absolute Eosinophils Not Reportable Absolute Basophils Not Reportable Sodium 135.0 L Potassium 5.4 H Chloride 93 L Carbon Dioxide 26 Anion Gap 16 BUN 102 H Creatinine 7.50 H Est GFR ( Amer) 9 L Est GFR (Non-Af Amer) 7 L Glucose 335 H Calcium 9.1 02/05/18 06:29 NT-Pro-B Natriuret Pep 4820 H Impressions: Venous Doppler Study 02/02/18 00:00 IMPRESSION: NO EVIDENCE DVT OR SVT IN EITHER LEG. Chest X-Ray 02/06/18 06:00 IMPRESSION: Persistent cardiomegaly. Modified Barium Swallow 02/07/18 00:00 IMPRESSION: LARYNGEAL PENETRATION WITH THIN AND NECTAR THICK CONSISTENCIES. TRACHEAL ASPIRATION SEEN FROM RESIDUALS.PLEASE SEE SPEECH PATHOLOGIST REPORT FOR OTHER FINDINGS AND RECOMMENDATIONS. Soft Tissue Neck CT 02/07/18 00:00 IMPRESSION: 1. NO SIGNIFICANT FINDING IN THE SOFT TISSUES OF THE NECK. 2. MAXILLARY SINUS DISEASE. 3. PATCHY GROUND-GLASS OPACITIES IN THE UPPER LOBES, RIGHT GREATER THAN LEFT. MAY BE DUE TO ATELECTASIS, INFLAMMATION, OR INFECTION. Renal Ultrasound 02/07/18 17:29 IMPRESSION: CHRONIC MEDICAL RENAL DISEASE. NO HYDRONEPHROSIS. Assessment & Plan - Time Time Spent with patient: 25-34 minutes Medications reviewed and adjusted accordingly: Yes Anticipated discharge: Acute Rehab Within: within 72 hours - Inpatient Certification Based on my medical assessment, after consideration of the patient's comorbidities, presenting symptoms, or acuity I expect that the services needed warrant INPATIENT care.: Yes Medical Necessity: Need Close Monitoring Due to Risk of Patient Decompensation, Risk of Complication if Not Cared For in Hospital - Plan Summary Plan Summary: Acute kidney injury possibly secondary to vancomycin. Patient is currently being dialyzed. His kidney functions have been monitored as well as his urine output. 2. Metabolic encephalopathy secondary to kidney failure. Patient apparently has been improving 3. Vasculitis which appears to be improving 4. Type 2 diabetes mellitus we will adjust medications as needed 5. Hyperkalemia secondary to kidney function that she will improve
--- NOTE | 2018-02-14 15:35 | RADIOLOGY REPORT (SQ) ---
EXAM DESCRIPTION: CHEST SINGLE VIEW COMPLETED DATE/TIME: 02/14/2018 3:23 pm REASON FOR STUDY: cough COMPARISON: 02/06/2018. NUMBER OF VIEWS: One view. TECHNIQUE: Single frontal radiographic view of the chest acquired. LIMITATIONS: None. FINDINGS: LUNGS AND PLEURA: No opacities, masses or pneumothorax. No pleural effusion. MEDIASTINUM AND HILAR STRUCTURES: No masses. Contour normal. HEART AND VASCULAR STRUCTURES: Heart enlarged without failure. Normal vasculature. BONES: No acute findings. HARDWARE: Sternotomy wires and coronary bypass markers. OTHER: No other significant finding. IMPRESSION: HEART ENLARGED WITHOUT FAILURE. NO CHANGE. TECHNICAL DOCUMENTATION: JOB ID: [id number] [employer]- All Rights Reserved Reading location - IP/workstation name: [email or web address]
[2018-02-14] MEDS: FUROSEMIDE 20 MG TABLET PO SCH (18:57)
[2018-02-14] MEDS: ATORVASTATIN CALCIUM 80 MG TABLET PO SCH (21:42)
[2018-02-14] MEDS: CETIRIZINE 10 MG TABLET PO SCH (21:50)
[2018-02-15] MEDS: DILTIAZEM HCL 30 MG TABLET PO SCH ×4 (00:25→17:37)
[2018-02-15] MEDS: IPRATROPIUM/ALBUTEROL 0.5-2.5 MG/3 ML AMPUL NEB SCH ×4 (02:37→20:07)
[2018-02-15] MEDS: LEVOTHYROXINE SODIUM 0.15 MG TABLET PO SCH (05:22)
[2018-02-15 06:52] LABS: HEMATOCRIT 30.8 % (37.9-51.0); HEMOGLOBIN 10.4 g/dL (13.5-17.0); MEAN CORPUSCULAR HGB CONC 33.8 g/dL (32.0-36.0); MEAN CORPUSCULAR VOLUME 89 fl (80-97); PLATELET COUNT 100 10^3/uL (150-450); RED BLOOD COUNT 3.47 10^6/uL (4.35-5.55); RED CELL DISTRIBUTION WIDTH 15.6 % (11.5-14.0); WHITE BLOOD COUNT 16.1 10^3/uL (4.0-10.5)
[2018-02-15 07:13] LABS: ABSOLUTE MONOCYTES # (MANUAL) 0.3 10^3/uL (0.1-1.4); ABSOLUTE NEUTROPHILS# (MANUAL) 14.3 10^3/uL (1.7-8.2); BASOPHILS % (MANUAL) 0 % (0-2); EOSINOPHILS % (MANUAL) 3 % (0-6); LYMPHOCYTES % (MANUAL) 6 % (13-45); MONOCYTES % (MANUAL) 2 % (3-13); SEGMENTED NEUTROPHILS % (MAN) 89 % (42-78); TOTAL CELLS COUNTED 100
[2018-02-15 07:15] LABS: ANION GAP 14 (5-19); BLOOD UREA NITROGEN 76 mg/dL (7-20); CARBON DIOXIDE 29 mmol/L (22-30); CHLORIDE 95 mmol/L (98-107); GLUCOSE 260 mg/dL (75-110); SODIUM 137.8 mmol/L (137-145)
[2018-02-15 07:19] LABS: ACANTHOCYTES 1+; BURR CELLS SLIGHT; OVALOCYTES 2+; PLATELET COMMENT ADEQUATE; POIKILOCYTOSIS 2+; TOXIC GRANULATION SLIGHT
[2018-02-15] MEDS: PREDNISONE 20 MG TABLET PO SCH (10:31)
[2018-02-15] MEDS: ASPIRIN 325 MG TABLET PO SCH (10:31)
[2018-02-15] MEDS: METOPROLOL TARTRATE 50 MG TABLET PO SCH ×2 (10:31→22:07)
[2018-02-15] MEDS: LACTOBACILLUS ACIDOPHILUS 250 MG TAB PO SCH ×2 (10:31→17:37)
[2018-02-15] MEDS: FUROSEMIDE 20 MG TABLET PO SCH ×2 (10:31→17:38)
[2018-02-15] MEDS: CALCIUM ACETATE 667 MG CAPSULE PO SCH ×3 (10:32→17:33)
[2018-02-15] MEDS: FLUTICASONE NASAL SPRAY 50 MCG/SPRY 120 SPRAY/16 GM NASL SCH ×2 (10:32→22:10)
[2018-02-15] MEDS: LOPERAMIDE HCL 2 MG CAPSULE PO PRN (10:32)
[2018-02-15] MEDS: PANTOT AC/MIN OIL/PET HY-PHL OINT 50 GM TOP SCH ×3 (10:33→17:34)
[2018-02-15] MEDS: RISPERIDONE 1 MG TABLET PO SCH (10:33)
[2018-02-15] MEDS: INSULIN LISPRO 100 UNIT/ML 3 ML VIAL SUBCUT PRN ×3 (10:34→22:05)
[2018-02-15] MEDS: INSULIN DETEMIR 100 UNIT/ML 3 ML PEN SUBCUT SCH ×2 (10:35→22:06)
--- NOTE | 2018-02-15 14:31 | PDOC PROGRESS REPORT ---
Subjective Progress Note for:: 02/15/18 Subjective:: Patient was seen in dialysis today. He says he is feeling better. Apparently his mental status is improving. His blood sugars have been elevated probably because he has been on prednisone and he also has been off his home insulin. Will increase Insulin dose today Reason For Visit: VENOUS STASIS,CELLULITIS Physical Exam Vital Signs: Temp Pulse Resp BP Pulse Ox 98.8 F 82 18 110/64 94 02/15/18 08:33 02/15/18 13:55 02/15/18 13:55 02/15/18 08:33 02/15/18 13:55 Pulse Oximeter Continuous Start: 02/05/18 18: 33 Freq: RTQ4 Status: Active Document 02/15/18 12:03 [facility] (Rec: 02/15/18 12:03 [facility] [id number]) Pulse Oximetry Assessment Oxygen Saturation (92-100) 94 Oxygen Flow Rate (L/min) 2 Oxygen Delivery Method Nasal Cannula Fraction of Inspired Oxygen (FIO2) 28 Equipment Usage Equipment in Use Continuous SpO2 Machine # 6 Intake & Output 02/14/18 02/15/18 02/16/18 06:59 06:59 06:59 Intake Total 1043 2325 710 Output Total 250 Balance 1043 2075 710 Weight 125.2 kg 125.2 kg General appearance: PRESENT: no acute distress, well-developed, well-nourished Head exam: PRESENT: atraumatic, normocephalic Eye exam: PRESENT: conjunctiva pink, EOMI, PERRLA. ABSENT: scleral icterus Ear exam: PRESENT: normal external ear exam Mouth exam: PRESENT: moist, tongue midline Neck exam: ABSENT: carotid bruit, JVD, lymphadenopathy, thyromegaly Respiratory exam: PRESENT: clear to auscultation sadia. ABSENT: rales, rhonchi, wheezes Cardiovascular exam: PRESENT: RRR. ABSENT: diastolic murmur, rubs, systolic murmur Pulses: PRESENT: normal dorsalis pedis pul Vascular exam: PRESENT: normal capillary refill GI/Abdominal exam: PRESENT: normal bowel sounds, soft. ABSENT: distended, guarding, mass, organolmegaly, rebound, tenderness Rectal exam: PRESENT: deferred Extremities exam: PRESENT: full ROM, +2 edema. ABSENT: calf tenderness, clubbing, pedal edema Neurological exam: PRESENT: alert, oriented to person, oriented to place, oriented to time, oriented to situation, CN II-XII grossly intact. ABSENT: motor sensory deficit Psychiatric exam: PRESENT: appropriate affect, normal mood. ABSENT: homicidal ideation, suicidal ideation Skin exam: PRESENT: rash, skin tears, other - Xple skin lesions and rashes, maculopapular. ABSENT: cyanosis Results Laboratory Results: 02/15/18 06:13 02/15/18 06:13 02/15/18 02/15/18 06:13 06:13 WBC 16.1 H RBC 3.47 L Hgb 10.4 L Hct 30.8 L MCV 89 MCH 30.0 MCHC 33.8 RDW 15.6 H Plt Count 100 L Seg Neutrophils % Not Reportable Lymphocytes % Not Reportable Monocytes % Not Reportable Eosinophils % Not Reportable Basophils % Not Reportable Absolute Neutrophils Not Reportable Absolute Lymphocytes Not Reportable Absolute Monocytes Not Reportable Absolute Eosinophils Not Reportable Absolute Basophils Not Reportable Sodium 137.8 Potassium 5.0 Chloride 95 L Carbon Dioxide 29 Anion Gap 14 BUN 76 H Creatinine 5.74 H Est GFR ( Amer) 12 L Est GFR (Non-Af Amer) 10 L Glucose 260 H Calcium 9.0 02/05/18 06:29 NT-Pro-B Natriuret Pep 4820 H Impressions: Venous Doppler Study 02/02/18 00:00 IMPRESSION: NO EVIDENCE DVT OR SVT IN EITHER LEG. Modified Barium Swallow 02/07/18 00:00 IMPRESSION: LARYNGEAL PENETRATION WITH THIN AND NECTAR THICK CONSISTENCIES. TRACHEAL ASPIRATION SEEN FROM RESIDUALS.PLEASE SEE SPEECH PATHOLOGIST REPORT FOR OTHER FINDINGS AND RECOMMENDATIONS. Soft Tissue Neck CT 02/07/18 00:00 IMPRESSION: 1. NO SIGNIFICANT FINDING IN THE SOFT TISSUES OF THE NECK. 2. MAXILLARY SINUS DISEASE. 3. PATCHY GROUND-GLASS OPACITIES IN THE UPPER LOBES, RIGHT GREATER THAN LEFT. MAY BE DUE TO ATELECTASIS, INFLAMMATION, OR INFECTION. Renal Ultrasound 02/07/18 17:29 IMPRESSION: CHRONIC MEDICAL RENAL DISEASE. NO HYDRONEPHROSIS. Chest X-Ray 02/14/18 10:58 IMPRESSION: HEART ENLARGED WITHOUT FAILURE. NO CHANGE. Assessment & Plan - Time Time Spent with patient: 25-34 minutes Medications reviewed and adjusted accordingly: Yes Anticipated discharge: Home Within: within 72 hours - Inpatient Certification Based on my medical assessment, after consideration of the patient's comorbidities, presenting symptoms, or acuity I expect that the services needed warrant INPATIENT care.: Yes Medical Necessity: Need Close Monitoring Due to Risk of Patient Decompensation, Risk of Complication if Not Cared For in Hospital - Plan Summary Plan Summary: Acute kidney injury possibly secondary to vancomycin. Continue dialysis and await return of kidney function. 2. Metabolic encephalopathy secondary to kidney failure. Patient apparently has been improving 3. Vasculitis which appears to be improving 4. Type 2 diabetes mellitus we will increase Insulin 5. Hyperkalemia secondary to kidney function Continue to monitor
[2018-02-15 14:39] LABS: ANTIMYELOPEROXIDASE (MPO) AB <9.0 U/mL (0.0-9.0); CYTOPLASMIC (C-ANCA) <1:20 titer (Neg:<1:20)
[2018-02-15 14:58] LABS: ATYPICAL PANCA <1:20 titer (Neg:<1:20); PERINUCLEAR (P-ANCA) <1:20 titer (Neg:<1:20)
--- NOTE | 2018-02-15 15:59 | PDOC PROGRESS REPORT ---
Subjective Progress Note for:: 02/15/18 Subjective:: Patient was seen sleeping in his chair comfortably today. When awoken he said that he was fine. He did not want to stay awake to answer my questions. At this time the creatinine has slight decreased and urine output has not improved. Reason For Visit: VENOUS STASIS,CELLULITIS Physical Exam Vital Signs: Temp Pulse Resp BP Pulse Ox 98.8 F 82 18 110/64 94 02/15/18 08:33 02/15/18 13:55 02/15/18 13:55 02/15/18 08:33 02/15/18 13:55 Pulse Oximeter Continuous Start: 02/05/18 18: 33 Freq: RTQ4 Status: Active Document 02/15/18 12:03 [facility] (Rec: 02/15/18 12:03 [facility] [id number]) Pulse Oximetry Assessment Oxygen Saturation (92-100) 94 Oxygen Flow Rate (L/min) 2 Oxygen Delivery Method Nasal Cannula Fraction of Inspired Oxygen (FIO2) 28 Equipment Usage Equipment in Use Continuous SpO2 Machine # 6 Intake & Output 02/14/18 02/15/18 02/16/18 06:59 06:59 06:59 Intake Total 1043 2325 710 Output Total 250 Balance 1043 2075 710 Weight 125.2 kg 125.2 kg General appearance: PRESENT: no acute distress, well-developed, well-nourished Mouth exam: PRESENT: moist, neck supple Neck exam: ABSENT: JVD, tracheal deviation Respiratory exam: PRESENT: clear to auscultation sadia. ABSENT: crackles, rales, rhonchi Cardiovascular exam: PRESENT: +S1, +S2 GI/Abdominal exam: PRESENT: normal bowel sounds, soft. ABSENT: organomegaly, tenderness Extremities exam: PRESENT: +2 edema Neurological exam: PRESENT: other - Patient was asleep and when awoken he remained sleepy.. ABSENT: alert, awake Skin exam: PRESENT: dry, intact, warm Results Laboratory Results: 02/15/18 06:13 02/15/18 06:13 02/15/18 02/15/18 06:13 06:13 WBC 16.1 H RBC 3.47 L Hgb 10.4 L Hct 30.8 L MCV 89 MCH 30.0 MCHC 33.8 RDW 15.6 H Plt Count 100 L Seg Neutrophils % Not Reportable Lymphocytes % Not Reportable Monocytes % Not Reportable Eosinophils % Not Reportable Basophils % Not Reportable Absolute Neutrophils Not Reportable Absolute Lymphocytes Not Reportable Absolute Monocytes Not Reportable Absolute Eosinophils Not Reportable Absolute Basophils Not Reportable Sodium 137.8 Potassium 5.0 Chloride 95 L Carbon Dioxide 29 Anion Gap 14 BUN 76 H Creatinine 5.74 H Est GFR ( Amer) 12 L Est GFR (Non-Af Amer) 10 L Glucose 260 H Calcium 9.0 02/05/18 06:29 NT-Pro-B Natriuret Pep 4820 H Impressions: Venous Doppler Study 02/02/18 00:00 IMPRESSION: NO EVIDENCE DVT OR SVT IN EITHER LEG. Modified Barium Swallow 02/07/18 00:00 IMPRESSION: LARYNGEAL PENETRATION WITH THIN AND NECTAR THICK CONSISTENCIES. TRACHEAL ASPIRATION SEEN FROM RESIDUALS.PLEASE SEE SPEECH PATHOLOGIST REPORT FOR OTHER FINDINGS AND RECOMMENDATIONS. Soft Tissue Neck CT 02/07/18 00:00 IMPRESSION: 1. NO SIGNIFICANT FINDING IN THE SOFT TISSUES OF THE NECK. 2. MAXILLARY SINUS DISEASE. 3. PATCHY GROUND-GLASS OPACITIES IN THE UPPER LOBES, RIGHT GREATER THAN LEFT. MAY BE DUE TO ATELECTASIS, INFLAMMATION, OR INFECTION. Renal Ultrasound 02/07/18 17:29 IMPRESSION: CHRONIC MEDICAL RENAL DISEASE. NO HYDRONEPHROSIS. Chest X-Ray 02/14/18 10:58 IMPRESSION: HEART ENLARGED WITHOUT FAILURE. NO CHANGE. Assessment & Plan - Diagnosis (1) Acute kidney failure Qualifiers: Acute renal failure type: unspecified Qualified Code(s): N17.9 - Acute kidney failure, unspecified Is this a current diagnosis for this admission?: Yes Plan: Slight improvement in creatinine, urine output has not improved. Will look to continue dialysis tomorrow. (2) Cellulitis of lower extremity Qualifiers: Laterality: right Qualified Code(s): L03.115 - Cellulitis of right lower limb Is this a current diagnosis for this admission?: Yes Plan: resolved and currently off of antibiotics. 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
[2018-02-15] MEDS ORDERED: INSULIN LISPRO 100 UNIT/ML 3 ML VIAL SUBCUT ONE ×2 (17:45→23:00)
[2018-02-15] MEDS: ATORVASTATIN CALCIUM 80 MG TABLET PO SCH (22:07)
[2018-02-15] MEDS: CETIRIZINE 10 MG TABLET PO SCH (22:08)
[2018-02-15] MEDS ORDERED: INSULIN DETEMIR 100 UNIT/ML 3 ML PEN SUBCUT ONE (22:20)
[2018-02-16] MEDS ORDERED: INSULIN LISPRO 100 UNIT/ML 3 ML VIAL SUBCUT ONE ×2 (00:15→02:15)
[2018-02-16] MEDS: DILTIAZEM HCL 30 MG TABLET PO SCH ×5 (00:16→23:21)
[2018-02-16] MEDS: IPRATROPIUM/ALBUTEROL 0.5-2.5 MG/3 ML AMPUL NEB SCH ×4 (02:16→20:11)
[2018-02-16 05:07] LABS: HEMATOCRIT 29.9 % (37.9-51.0); HEMOGLOBIN 10.2 g/dL (13.5-17.0); MEAN CORPUSCULAR HEMOGLOBIN 30.4 pg (27.0-33.4); MEAN CORPUSCULAR HGB CONC 34.1 g/dL (32.0-36.0); MEAN CORPUSCULAR VOLUME 89 fl (80-97); PLATELET COUNT 103 10^3/uL (150-450); RED BLOOD COUNT 3.35 10^6/uL (4.35-5.55); RED CELL DISTRIBUTION WIDTH 15.4 % (11.5-14.0); WHITE BLOOD COUNT 14.2 10^3/uL (4.0-10.5)
[2018-02-16] MEDS: LEVOTHYROXINE SODIUM 0.15 MG TABLET PO SCH (05:22)
[2018-02-16 05:27] LABS: ANION GAP 17 (5-19); BLOOD UREA NITROGEN 95 mg/dL (7-20); CALCIUM 9.1 mg/dL (8.4-10.2); CARBON DIOXIDE 27 mmol/L (22-30); CHLORIDE 93 mmol/L (98-107); GLUCOSE 363 mg/dL (75-110); POTASSIUM 4.7 mmol/L (3.6-5.0); SODIUM 136.6 mmol/L (137-145)
[2018-02-16 05:32] LABS: ABSOLUTE LYMPHOCYTES# (MANUAL) 0.4 10^3/uL (0.5-4.7); ABSOLUTE MONOCYTES # (MANUAL) 1.1 10^3/uL (0.1-1.4); ABSOLUTE NEUTROPHILS# (MANUAL) 12.4 10^3/uL (1.7-8.2); BAND NEUTROPHILS % (MANUAL) 1 % (3-5); BASOPHILS % (MANUAL) 0 % (0-2); EOSINOPHILS % (MANUAL) 2 % (0-6); LYMPHOCYTES % (MANUAL) 3 % (13-45); METAMYELOCYTES % (MANUAL) 2 % (0); MONOCYTES % (MANUAL) 8 % (3-13); SEGMENTED NEUTROPHILS % (MAN) 84 % (42-78); TOTAL CELLS COUNTED 100
[2018-02-16 05:33] LABS: ANISOCYTOSIS 1+; BURR CELLS 1+; OVALOCYTES 1+; POIKILOCYTOSIS 2+
[2018-02-16 05:34] LABS: PLATELET COMMENT DECREASED; SCHISTOCYTES SLIGHT
[2018-02-16 07:53] LABS: APPEARANCE,URINE CLOUDY; BILIRUBIN,URINE NEGATIVE (NEGATIVE); CALCIUM OXALATE CRYSTALS,URINE RARE /HPF; COLOR,URINE YELLOW; GLUCOSE, URINE >=500 mg/dL (NEGATIVE); KETONES,URINE NEGATIVE (NEGATIVE); LEUKOCYTE ESTERASE,URINE SMALL (NEGATIVE); NITRITE,URINE NEGATIVE (NEGATIVE); PROTEIN,URINE 30 mg/dL (NEGATIVE); URINE SPECIFIC GRAVITY 1.009; UROBILINOGEN,URINE NEGATIVE mg/dL (<2.0)
[2018-02-16] MEDS: CALCIUM ACETATE 667 MG CAPSULE PO SCH ×3 (09:02→18:00)
[2018-02-16] MEDS: INSULIN LISPRO 100 UNIT/ML 3 ML VIAL SUBCUT PRN ×4 (09:10→21:20)
[2018-02-16] MEDS: METOPROLOL TARTRATE 50 MG TABLET PO SCH ×2 (09:28→21:23)
[2018-02-16] MEDS: FUROSEMIDE 20 MG TABLET PO SCH ×2 (09:28→17:59)
[2018-02-16] MEDS: ASPIRIN 325 MG TABLET PO SCH (09:28)
[2018-02-16] MEDS: PREDNISONE 20 MG TABLET PO SCH (09:28)
[2018-02-16] MEDS: LACTOBACILLUS ACIDOPHILUS 250 MG TAB PO SCH ×2 (09:28→17:59)
[2018-02-16] MEDS: RISPERIDONE 1 MG TABLET PO SCH (09:29)
[2018-02-16] MEDS: FLUTICASONE NASAL SPRAY 50 MCG/SPRY 120 SPRAY/16 GM NASL SCH ×2 (09:32→21:24)
[2018-02-16] MEDS: INSULIN DETEMIR 100 UNIT/ML 3 ML PEN SUBCUT SCH ×2 (09:42→21:22)
--- NOTE | 2018-02-16 11:31 | PDOC PROGRESS REPORT ---
Subjective Progress Note for:: 02/16/18 Subjective:: Patient was seen in room today. He says he is feeling better Blood sugar still poorly controlled He does still have urine output Reason For Visit: VENOUS STASIS,CELLULITIS Physical Exam Vital Signs: Temp Pulse Resp BP Pulse Ox 98.3 F 78 12 126/73 H 96 02/16/18 07:20 02/16/18 08:30 02/16/18 08:30 02/16/18 07:20 02/16/18 08:30 Pulse Oximeter Continuous Start: 02/05/18 18: 33 Freq: RTQ4 Status: Active Document 02/16/18 08:30 [facility] [place] 02/16/18 08:[place] [facility] [id number] Pulse Oximetry Assessment Oxygen Saturation (92-100) 96 Oxygen Flow Rate (L/min) 2 Oxygen Delivery Method Nasal Cannula Fraction of Inspired Oxygen (FIO2) 28 Equipment Usage Equipment in Use Continuous SpO2 Machine # N 11 Intake & Output 02/15/18 02/16/18 02/17/18 06:59 06:59 06:59 Intake Total 2325 710 Output Total 250 Balance 2075 710 Weight 125.2 kg 125.2 kg General appearance: PRESENT: no acute distress, obese, well-developed, well- nourished Head exam: PRESENT: atraumatic, normocephalic Eye exam: PRESENT: conjunctiva pink, EOMI, PERRLA. ABSENT: scleral icterus Ear exam: PRESENT: normal external ear exam Mouth exam: PRESENT: moist, tongue midline Neck exam: ABSENT: carotid bruit, JVD, lymphadenopathy, thyromegaly Respiratory exam: PRESENT: clear to auscultation sadia, unlabored. ABSENT: rales , rhonchi, wheezes Cardiovascular exam: PRESENT: RRR, +S1, +S2. ABSENT: diastolic murmur, rubs, systolic murmur Pulses: PRESENT: normal dorsalis pedis pul Vascular exam: PRESENT: normal capillary refill GI/Abdominal exam: PRESENT: normal bowel sounds, soft. ABSENT: distended, guarding, mass, organolmegaly, rebound, tenderness Rectal exam: PRESENT: deferred Extremities exam: PRESENT: full ROM, pedal edema, +2 edema. ABSENT: calf tenderness, clubbing Neurological exam: PRESENT: alert, awake, oriented to person, oriented to place , oriented to time, oriented to situation, CN II-XII grossly intact. ABSENT: motor sensory deficit Psychiatric exam: PRESENT: appropriate affect, normal mood. ABSENT: homicidal ideation, suicidal ideation Skin exam: PRESENT: dry, intact, rash, warm. ABSENT: cyanosis Results Laboratory Results: 02/16/18 04:02 02/16/18 04:02 02/16/18 02/16/18 02/16/18 04:02 04:02 06:00 WBC 14.2 H RBC 3.35 L Hgb 10.2 L Hct 29.9 L MCV 89 MCH 30.4 MCHC 34.1 RDW 15.4 H Plt Count 103 L Seg Neutrophils % Not Reportable Lymphocytes % Not Reportable Monocytes % Not Reportable Eosinophils % Not Reportable Basophils % Not Reportable Absolute Neutrophils Not Reportable Absolute Lymphocytes Not Reportable Absolute Monocytes Not Reportable Absolute Eosinophils Not Reportable Absolute Basophils Not Reportable Sodium 136.6 L Potassium 4.7 Chloride 93 L Carbon Dioxide 27 Anion Gap 17 BUN 95 H Creatinine 6.90 H Est GFR ( Amer) 10 L Est GFR (Non-Af Amer) 8 L Glucose 363 H Calcium 9.1 Urine Color YELLOW Urine Appearance CLOUDY Urine pH 5.0 Ur Specific [place] 1.009 Urine Protein 30 H Urine Glucose (UA) >=500 H Urine Ketones NEGATIVE Urine Blood LARGE H Urine Nitrite NEGATIVE Ur Leukocyte Esterase SMALL H Urine WBC (Auto) 18 Urine RBC (Auto) 141 02/05/18 06:29 NT-Pro-B Natriuret Pep 4820 H Impressions: Venous Doppler Study 02/02/18 00:00 IMPRESSION: NO EVIDENCE DVT OR SVT IN EITHER LEG. Modified Barium Swallow 02/07/18 00:00 IMPRESSION: LARYNGEAL PENETRATION WITH THIN AND NECTAR THICK CONSISTENCIES. TRACHEAL ASPIRATION SEEN FROM RESIDUALS.PLEASE SEE SPEECH PATHOLOGIST REPORT FOR OTHER FINDINGS AND RECOMMENDATIONS. Soft Tissue Neck CT 02/07/18 00:00 IMPRESSION: 1. NO SIGNIFICANT FINDING IN THE SOFT TISSUES OF THE NECK. 2. MAXILLARY SINUS DISEASE. 3. PATCHY GROUND-GLASS OPACITIES IN THE UPPER LOBES, RIGHT GREATER THAN LEFT. MAY BE DUE TO ATELECTASIS, INFLAMMATION, OR INFECTION. Renal Ultrasound 02/07/18 17:29 IMPRESSION: CHRONIC MEDICAL RENAL DISEASE. NO HYDRONEPHROSIS. Chest X-Ray 02/14/18 10:58 IMPRESSION: HEART ENLARGED WITHOUT FAILURE. NO CHANGE. Assessment & Plan - Time Time Spent with patient: 15-24 minutes - Inpatient Certification Based on my medical assessment, after consideration of the patient's comorbidities, presenting symptoms, or acuity I expect that the services needed warrant INPATIENT care.: Yes Medical Necessity: Need Close Monitoring Due to Risk of Patient Decompensation, Risk of Complication if Not Cared For in Hospital - Plan Summary Plan Summary: Acute kidney injury possibly secondary to vancomycin. Continue dialysis and await return of kidney function hopefully soon 2. Metabolic encephalopathy secondary to kidney failure. improving 3. Vasculitis which appears to be improving on Prednisone. Will decrease Pred to 15mg daily 4. Type 2 diabetes mellitus, uncontrolled we will increase Insulin 5. Hyperkalemia secondary to kidney function Continue to monitor 6. Obesity- Weight control
[2018-02-16] MEDS: PANTOT AC/MIN OIL/PET HY-PHL OINT 50 GM TOP SCH ×3 (12:54→18:04)
--- NOTE | 2018-02-16 17:31 | PDOC PROGRESS REPORT ---
Subjective Progress Note for:: 02/16/18 Subjective:: I am seeing the patient during dialysis this afternoon. His mental state is much better from what I have seen him last week. He is communicating and his speech is more fluent. He claims that he feels much better and wants to continue to be better and is agreeing to continue dialysis if needed. His blood pressure is a little bit on the low side so her ultrafiltration rate is modified accordingly. Otherwise he is tolerating dialysis without any problems. He is is still not making a significant amount of urine output. Reason For Visit: VENOUS STASIS,CELLULITIS Physical Exam Vital Signs: Temp Pulse Resp BP Pulse Ox 98.7 F 87 16 101/42 L 96 02/16/18 11:09 02/16/18 14:03 02/16/18 14:03 02/16/18 11:09 02/16/18 14:03 Pulse Oximeter Continuous Start: 02/05/18 18: 33 Freq: RTQ4 Status: Active Document 02/16/18 11:[address] [facility] (Rec: 02/16/18 11:[address] [facility] [id number]) Pulse Oximetry Assessment Oxygen Saturation (92-100) 96 Oxygen Flow Rate (L/min) 2 Oxygen Delivery Method Nasal Cannula Equipment Usage Equipment in Use Continuous SpO2 Machine # 11 Intake & Output 02/15/18 02/16/18 02/17/18 06:59 06:59 06:59 Intake Total 2325 710 Output Total 250 Balance 2075 710 Weight 125.2 kg 125.2 kg Vital signs during dialysis: Blood pressure 112/53, heart rate of 95, blood flow rate of 300 mL/min, dialysate flow rate of 600 mL/min. Exam: General appearance: PRESENT: no acute distress, cooperative, well-developed, well-nourished Head exam: PRESENT: atraumatic, normocephalic Eye exam: PRESENT: conjunctiva pale, PERRLA. ABSENT: scleral icterus Neck exam: ABSENT: JVD Respiratory exam: PRESENT: Diffuse bilateral coarse breath sounds. He has diffuse rhonchi and wheezing ABSENT: crackles, rales, unlabored Cardiovascular exam: PRESENT: Regular rate rhythm -+S1, +S2. ABSENT: diastolic murmur, systolic murmur GI/Abdominal exam: PRESENT: normal bowel sounds, soft. ABSENT: guarding, mass, tenderness Extremities exam: Grade 1 bilateral lower extremity edema and upper extremity edema Neurological exam: PRESENT: alert, awake, oriented to person, place and time. Skin exam: PRESENT: dry, warm, unchanged papular lesions in the lower extremities Cardiovascular exam: PRESENT: +S1, +S2 GI/Abdominal exam: PRESENT: normal bowel sounds, soft. ABSENT: organomegaly, tenderness Results Laboratory Results: 02/16/18 04:02 02/16/18 04:02 02/16/18 02/16/18 02/16/18 04:02 04:02 06:00 WBC 14.2 H RBC 3.35 L Hgb 10.2 L Hct 29.9 L MCV 89 MCH 30.4 MCHC 34.1 RDW 15.4 H Plt Count 103 L Seg Neutrophils % Not Reportable Lymphocytes % Not Reportable Monocytes % Not Reportable Eosinophils % Not Reportable Basophils % Not Reportable Absolute Neutrophils Not Reportable Absolute Lymphocytes Not Reportable Absolute Monocytes Not Reportable Absolute Eosinophils Not Reportable Absolute Basophils Not Reportable Sodium 136.6 L Potassium 4.7 Chloride 93 L Carbon Dioxide 27 Anion Gap 17 BUN 95 H Creatinine 6.90 H Est GFR ( Amer) 10 L Est GFR (Non-Af Amer) 8 L Glucose 363 H Calcium 9.1 Urine Color YELLOW Urine Appearance CLOUDY Urine pH 5.0 Ur Specific [place] 1.009 Urine Protein 30 H Urine Glucose (UA) >=500 H Urine Ketones NEGATIVE Urine Blood LARGE H Urine Nitrite NEGATIVE Ur Leukocyte Esterase SMALL H Urine WBC (Auto) 18 Urine RBC (Auto) 141 02/05/18 06:29 NT-Pro-B Natriuret Pep 4820 H Impressions: Venous Doppler Study 02/02/18 00:00 IMPRESSION: NO EVIDENCE DVT OR SVT IN EITHER LEG. Modified Barium Swallow 02/07/18 00:00 IMPRESSION: LARYNGEAL PENETRATION WITH THIN AND NECTAR THICK CONSISTENCIES. TRACHEAL ASPIRATION SEEN FROM RESIDUALS.PLEASE SEE SPEECH PATHOLOGIST REPORT FOR OTHER FINDINGS AND RECOMMENDATIONS. Soft Tissue Neck CT 02/07/18 00:00 IMPRESSION: 1. NO SIGNIFICANT FINDING IN THE SOFT TISSUES OF THE NECK. 2. MAXILLARY SINUS DISEASE. 3. PATCHY GROUND-GLASS OPACITIES IN THE UPPER LOBES, RIGHT GREATER THAN LEFT. MAY BE DUE TO ATELECTASIS, INFLAMMATION, OR INFECTION. Renal Ultrasound 02/07/18 17:29 IMPRESSION: CHRONIC MEDICAL RENAL DISEASE. NO HYDRONEPHROSIS. Chest X-Ray 02/14/18 10:58 IMPRESSION: HEART ENLARGED WITHOUT FAILURE. NO CHANGE. Assessment & Plan - Diagnosis (1) Acute kidney injury Is this a current diagnosis for this admission?: Yes Plan: Secondary to vancomycin toxicity causing ATN. Patient is still oliguric. He will probably need hemodialysis support for a little bit more of time before expected renal recovery. I will plan to have a more permanent vascular access so I consulted Dr. Matias to place a PermCath tomorrow. We will do dialysis today for 3 hours, using the patient's right femoral trialysis catheter, with 2 potassium bath, blood flow rate of 300 mL per minute, dialysate flow rate of 600 mL per minute, ultrafiltration 1-2 L as tolerated, no heparin and no Procrit. We will plan to do another hemodialysis on Wednesday hopefully to a PermCath and reevaluate for any renal function recovery moving forward. (2) Somnolence Is this a current diagnosis for this admission?: Yes Plan: Much improved after initiation of hemodialysis and discontinuation of Lyrica. (3) Cellulitis of lower extremity Qualifiers: Laterality: right Qualified Code(s): L03.115 - Cellulitis of right lower limb Is this a current diagnosis for this admission?: Yes Plan: Treated with antibiotics and has completed its course. Currently off antibiotics. (4) Venous stasis dermatitis of both lower extremities Is this a current diagnosis for this admission?: Yes (5) Hyperphosphatemia Is this a current diagnosis for this admission?: Yes Plan: Continue PhosLo 667 mg 2 capsules with meals if the patient is able to take it. 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
[2018-02-16] MEDS: INSULIN LISPRO 100 UNIT/ML 3 ML VIAL SUBCUT SCH (17:56)
[2018-02-16] MEDS: ATORVASTATIN CALCIUM 80 MG TABLET PO SCH (21:22)
[2018-02-16] MEDS: CETIRIZINE 10 MG TABLET PO SCH (21:22)
[2018-02-17] MEDS: IPRATROPIUM/ALBUTEROL 0.5-2.5 MG/3 ML AMPUL NEB SCH ×4 (01:58→20:23)
[2018-02-17] MEDS: LEVOTHYROXINE SODIUM 0.15 MG TABLET PO SCH (05:42)
[2018-02-17] MEDS: DILTIAZEM HCL 30 MG TABLET PO SCH ×4 (05:42→23:01)
[2018-02-17 06:22] LABS: ANION GAP 12 (5-19); BLOOD UREA NITROGEN 77 mg/dL (7-20); CARBON DIOXIDE 32 mmol/L (22-30); CHLORIDE 96 mmol/L (98-107); GLUCOSE 121 mg/dL (75-110); SODIUM 140.3 mmol/L (137-145)
[2018-02-17] MEDS: INSULIN LISPRO 100 UNIT/ML 3 ML VIAL SUBCUT SCH ×3 (08:32→17:41)
[2018-02-17] MEDS: INSULIN DETEMIR 100 UNIT/ML 3 ML PEN SUBCUT SCH ×2 (08:32→21:14)
[2018-02-17] MEDS: CALCIUM ACETATE 667 MG CAPSULE PO SCH ×3 (08:33→17:40)
[2018-02-17] MEDS ORDERED: DIAZEPAM 5 MG TABLET PO PRN (08:43)
[2018-02-17] MEDS ORDERED: OXYCODONE-ACETAMINOPHEN 5-325 MG TABLET PO PRN (08:43)
[2018-02-17] MEDS ORDERED: CEFAZOLIN INJ 1 GM VIAL IV ONE (09:38)
[2018-02-17] MEDS ORDERED: CEFAZOLIN 1 GM/D5W RTU 1 GM/50 ML RTUPB IV PRN (10:06)
[2018-02-17] MEDS ORDERED: LIDOCAINE 0.5% INJ-PF (5 MG/ML) 50 ML SDV ONE (10:07)
[2018-02-17] MEDS ORDERED: MIDAZOLAM 2 MG/2 ML INJ ONE (10:07)
[2018-02-17] MEDS ORDERED: FENTANYL CITRATE INJ/PF 100 MCG/2 ML AMPUL ONE (10:08)
[2018-02-17] MEDS ORDERED: BACITRACIN INJ 50,000 UNIT VIAL ONE (10:08)
[2018-02-17] MEDS: ASPIRIN 325 MG TABLET PO SCH (10:43)
--- NOTE | 2018-02-17 11:22 | PDOC PROGRESS REPORT ---
Subjective Subjective:: Patient was seen in room today. Awaiting Permacath placement Reason For Visit: VENOUS STASIS,CELLULITIS Physical Exam Vital Signs: Temp Pulse Resp BP Pulse Ox 98.9 F 98 17 111/49 L 98 02/17/18 10:16 02/17/18 10:16 02/17/18 10:16 02/17/18 10:16 02/17/18 10:16 Pulse Oximeter Continuous Start: 02/05/18 18: 33 Freq: RTQ4 Status: Active Document 02/17/18 03:44 LRO (Rec: 02/17/18 03:45 LRO [id number]) Pulse Oximetry Assessment Oxygen Saturation (92-100) 97 Oxygen Flow Rate (L/min) 2 Oxygen Delivery Method Nasal Cannula Fraction of Inspired Oxygen (FIO2) 28 Equipment Usage Equipment in Use Continuous SpO2 Machine # 11 Intake & Output 02/16/18 02/17/18 02/18/18 06:59 06:59 06:59 Intake Total 710 592 Output Total 700 Balance 710 -108 Weight 125.2 kg 126.2 kg General appearance: PRESENT: no acute distress, obese, well-developed, well- nourished Head exam: PRESENT: atraumatic, normocephalic Eye exam: PRESENT: conjunctiva pink, EOMI, PERRLA. ABSENT: scleral icterus Ear exam: PRESENT: normal external ear exam Mouth exam: PRESENT: moist, tongue midline Neck exam: ABSENT: carotid bruit, JVD, lymphadenopathy, thyromegaly Respiratory exam: PRESENT: clear to auscultation sadia. ABSENT: rales, rhonchi, wheezes Cardiovascular exam: PRESENT: RRR, +S1, +S2. ABSENT: diastolic murmur, rubs, systolic murmur Pulses: PRESENT: normal dorsalis pedis pul Vascular exam: PRESENT: normal capillary refill GI/Abdominal exam: PRESENT: normal bowel sounds, soft. ABSENT: distended, guarding, mass, organolmegaly, rebound, tenderness Rectal exam: PRESENT: deferred Extremities exam: PRESENT: full ROM, +2 edema. ABSENT: calf tenderness, clubbing, pedal edema Neurological exam: PRESENT: alert, awake, oriented to person, oriented to place , oriented to time, oriented to situation, CN II-XII grossly intact. ABSENT: motor sensory deficit Psychiatric exam: PRESENT: appropriate affect, normal mood. ABSENT: homicidal ideation, suicidal ideation Skin exam: PRESENT: rash - Bilateral lower extremities, warm. ABSENT: cyanosis Results Laboratory Results: 02/16/18 04:02 02/17/18 04:45 02/17/18 04:45 Sodium 140.3 Potassium 4.0 Chloride 96 L Carbon Dioxide 32 H Anion Gap 12 BUN 77 H Creatinine 5.23 H Est GFR ( Amer) 14 L Est GFR (Non-Af Amer) 11 L Glucose 121 H Calcium 9.0 02/05/18 06:29 NT-Pro-B Natriuret Pep 4820 H Impressions: Venous Doppler Study 02/02/18 00:00 IMPRESSION: NO EVIDENCE DVT OR SVT IN EITHER LEG. Modified Barium Swallow 02/07/18 00:00 IMPRESSION: LARYNGEAL PENETRATION WITH THIN AND NECTAR THICK CONSISTENCIES. TRACHEAL ASPIRATION SEEN FROM RESIDUALS.PLEASE SEE SPEECH PATHOLOGIST REPORT FOR OTHER FINDINGS AND RECOMMENDATIONS. Soft Tissue Neck CT 02/07/18 00:00 IMPRESSION: 1. NO SIGNIFICANT FINDING IN THE SOFT TISSUES OF THE NECK. 2. MAXILLARY SINUS DISEASE. 3. PATCHY GROUND-GLASS OPACITIES IN THE UPPER LOBES, RIGHT GREATER THAN LEFT. MAY BE DUE TO ATELECTASIS, INFLAMMATION, OR INFECTION. Renal Ultrasound 02/07/18 17:29 IMPRESSION: CHRONIC MEDICAL RENAL DISEASE. NO HYDRONEPHROSIS. Chest X-Ray 02/14/18 10:58 IMPRESSION: HEART ENLARGED WITHOUT FAILURE. NO CHANGE. Assessment & Plan - Time Time Spent with patient: 15-24 minutes Medications reviewed and adjusted accordingly: Yes Anticipated discharge: Home Within: within 72 hours - Inpatient Certification Based on my medical assessment, after consideration of the patient's comorbidities, presenting symptoms, or acuity I expect that the services needed warrant INPATIENT care.: Yes Medical Necessity: Need Close Monitoring Due to Risk of Patient Decompensation, Risk of Complication if Not Cared For in Hospital - Plan Summary Plan Summary: Acute kidney injury possibly secondary to vancomycin. Continue dialysis and await return of kidney function hopefully soon Patient getting a Permacath today as it looks like hemay need dialysis terminal operations manager at least for the near future 2. Metabolic encephalopathy secondary to kidney failure. Slowly improving 3. Vasculitis which appears to be improving on Prednisone. Taper Prednisone as appropriate 4. Type 2 diabetes mellitus, uncontrolled adjust Insulin as needed 5. Hyperkalemia secondary to kidney function Continue to monitor and treat 6. Obesity- Weight control
[2018-02-17] MEDS: PANTOT AC/MIN OIL/PET HY-PHL OINT 50 GM TOP SCH ×3 (11:26→17:41)
[2018-02-17] MEDS: PREDNISONE 10 MG TABLET PO SCH (11:26)
[2018-02-17] MEDS: LACTOBACILLUS ACIDOPHILUS 250 MG TAB PO SCH ×2 (11:26→17:40)
[2018-02-17] MEDS: FLUTICASONE NASAL SPRAY 50 MCG/SPRY 120 SPRAY/16 GM NASL SCH ×2 (11:26→21:14)
[2018-02-17] MEDS: FUROSEMIDE 20 MG TABLET PO SCH ×2 (11:27→17:42)
[2018-02-17] MEDS: RISPERIDONE 1 MG TABLET PO SCH (11:27)
[2018-02-17] MEDS: METOPROLOL TARTRATE 50 MG TABLET PO SCH ×2 (11:27→21:12)
--- NOTE | 2018-02-17 12:14 | Operative Report ---
Operative Report DATE OF SURGERY: 02/08/18 PREOPERATIVE DIAGNOSIS: Renal failure, critical for hemodialysis access POSTOPERATIVE DIAGNOSIS: Same OPERATION: Right internal jugular vein access under real-time ultrasound guidance. Venogram of superior vena cava and right atrium. SURGEON: DIONNA REED MOTOR ANALYST: None ANESTHESIA: Moderate Sedation TISSUE REMOVED OR ALTERED: None COMPLICATIONS: Unusual venous anatomy. Based on this a permacatheter was not inserted ESTIMATED BLOOD LOSS: 2 mL. INTRAOPERATIVE FINDINGS: Consisted of a satisfactory right internal jugular vein estimated to be about 1.5 cm in diameter. Access gained without difficulty under ultrasound guidance. A venogram in the superior vena cava was done because of unusual tracts taken by the guidewire. This was consistent with a azygous vein. The catheter was withdrawn and the the guidewire inserted successfully into the right atrium. An angiogram was done using a Kumpe catheter which is placed using the guidewire. The atrium had a most unusual appearance with intra-atrial mass or thrombus. The procedure was therefore concluded and the catheter not placed. After the procedure I went to the radiologist and looked at his previous studies. A previous CTA done some years previously showed somewhat similar appearance. The radiologist feels that this is flow artifact. At this point a echocardiogram will be obtained postoperatively and the patient reevaluated for placement of a permacatheter in a few days. PROCEDURE: After obtaining informed consent, the patient was taken to the [Bank Accountant] and positioned supine. The [right neck] and chest were prepared with chlorhexidine and draped out with sterile linen. After the " universal timeout", in which it was verified that the patient continued to receive antibiotic, the procedure commenced. A steriley sheathed ultrasound probe was used to evaluate the [ right internal jugular] vein. Local anesthesia was infiltrated adjacent to the probe. Access into the [right internal jugular] vein was obtained using a micropuncture needle, followed by micropuncture wire and then a micropuncture catheter. This was followed by introduction of a 0.035 guidewire the tip of which was placed down into the inferior vena cava . Based on the findings as mentioned the catheter was followed by a 0.035 guidewire and then a Kumpe catheter. An angiogram was done by injecting contrast. The findings were as dictated. Given these findings it is thought prudent to conclude the procedure and obtain more information before proceeding. Dressings were applied and the procedure concluded. Copies of the dictated operative report for Dr. Dionna Matias MD.concluded. Copies of the dictated operative report for Dr. Dionna Matias MD.
[2018-02-17] MEDS: CETIRIZINE 10 MG TABLET PO SCH (21:12)
[2018-02-17] MEDS: ATORVASTATIN CALCIUM 80 MG TABLET PO SCH (21:13)
[2018-02-18] MEDS: IPRATROPIUM/ALBUTEROL 0.5-2.5 MG/3 ML AMPUL NEB SCH ×4 (02:12→19:50)
[2018-02-18 05:10] LABS: ANION GAP 14 (5-19); BLOOD UREA NITROGEN 86 mg/dL (7-20); CALCIUM 8.8 mg/dL (8.4-10.2); CARBON DIOXIDE 30 mmol/L (22-30); CHLORIDE 96 mmol/L (98-107); GLUCOSE 103 mg/dL (75-110); POTASSIUM 4.2 mmol/L (3.6-5.0); SODIUM 139.9 mmol/L (137-145)
[2018-02-18] MEDS: DILTIAZEM HCL 30 MG TABLET PO SCH ×4 (05:31→23:32)
[2018-02-18] MEDS: LEVOTHYROXINE SODIUM 0.15 MG TABLET PO SCH (05:31)
[2018-02-18 09:12] LABS: HEMATOCRIT 30.1 % (37.9-51.0); HEMOGLOBIN 10.2 g/dL (13.5-17.0); MEAN CORPUSCULAR HEMOGLOBIN 30.2 pg (27.0-33.4); MEAN CORPUSCULAR HGB CONC 33.9 g/dL (32.0-36.0); MEAN CORPUSCULAR VOLUME 89 fl (80-97); PLATELET COUNT 105 10^3/uL (150-450); RED BLOOD COUNT 3.37 10^6/uL (4.35-5.55); RED CELL DISTRIBUTION WIDTH 15.7 % (11.5-14.0)
[2018-02-18] MEDS: INSULIN LISPRO 100 UNIT/ML 3 ML VIAL SUBCUT SCH ×3 (13:23→17:41)
[2018-02-18] MEDS: LACTOBACILLUS ACIDOPHILUS 250 MG TAB PO SCH ×2 (13:24→17:43)
[2018-02-18] MEDS: ASPIRIN 325 MG TABLET PO SCH (13:24)
[2018-02-18] MEDS: METOPROLOL TARTRATE 50 MG TABLET PO SCH ×2 (13:24→22:21)
[2018-02-18] MEDS: FUROSEMIDE 20 MG TABLET PO SCH ×2 (13:25→17:43)
[2018-02-18] MEDS: RISPERIDONE 1 MG TABLET PO SCH (13:26)
[2018-02-18] MEDS: FLUTICASONE NASAL SPRAY 50 MCG/SPRY 120 SPRAY/16 GM NASL SCH ×2 (13:27→22:21)
[2018-02-18] MEDS: CALCIUM ACETATE 667 MG CAPSULE PO SCH ×3 (13:28→17:42)
[2018-02-18] MEDS: PANTOT AC/MIN OIL/PET HY-PHL OINT 50 GM TOP SCH ×3 (13:28→17:33)
[2018-02-18] MEDS: PREDNISONE 10 MG TABLET PO SCH (13:29)
[2018-02-18] MEDS: INSULIN DETEMIR 100 UNIT/ML 3 ML PEN SUBCUT SCH ×2 (14:06→22:21)
--- NOTE | 2018-02-18 14:09 | PDOC PROGRESS REPORT ---
Subjective Progress Note for:: 02/18/18 Subjective:: Patient was seen in dialysis today. He is drowsy. Denies any new symptoms. Attempted placement of permacath on 1129 was aborted as the atrium was found to have a most unusual appearance with intra-atrial mass or thrombus it was decided to obtain an echocardiogram first for evaluation prior to attempted to place a catheter again. Reason For Visit: VENOUS STASIS,CELLULITIS Physical Exam Vital Signs: Temp Pulse Resp BP Pulse Ox 98.6 F 119 H 19 111/62 99 02/18/18 12:00 02/18/18 12:00 02/18/18 12:00 02/18/18 12:00 02/18/18 12:00 Pulse Oximeter Continuous Start: 02/05/18 18: 33 Freq: RTQ4 Status: Active Document 02/18/18 08:26 NSC (Rec: 02/18/18 08:45 [facility] [place] [id number]) Pulse Oximetry Assessment Oxygen Saturation (92-100) 96 Oxygen Flow Rate (L/min) 2 Oxygen Delivery Method Nasal Cannula Fraction of Inspired Oxygen (FIO2) 28 Equipment Usage Equipment in Use Continuous SpO2 Machine # N 11 Intake & Output 02/17/18 02/18/18 02/19/18 06:59 06:59 06:59 Intake Total 592 675 Output Total 364 070 2696 Balance - Weight 126.2 kg 126.2 kg General appearance: PRESENT: morbidly obese Head exam: PRESENT: atraumatic, normocephalic Eye exam: PRESENT: conjunctiva pink, EOMI, PERRLA. ABSENT: scleral icterus Ear exam: PRESENT: normal external ear exam Mouth exam: PRESENT: moist, tongue midline Neck exam: ABSENT: carotid bruit, JVD, lymphadenopathy, thyromegaly Respiratory exam: PRESENT: clear to auscultation sadia. ABSENT: rales, rhonchi, wheezes Cardiovascular exam: PRESENT: RRR, +S1, +S2. ABSENT: diastolic murmur, rubs, systolic murmur Pulses: PRESENT: normal dorsalis pedis pul Vascular exam: PRESENT: normal capillary refill GI/Abdominal exam: PRESENT: normal bowel sounds, soft. ABSENT: distended, guarding, mass, organolmegaly, rebound, tenderness Rectal exam: PRESENT: deferred Extremities exam: PRESENT: full ROM, +2 edema. ABSENT: calf tenderness, clubbing, pedal edema Neurological exam: PRESENT: awake, oriented to place, oriented to situation, CN II-XII grossly intact. ABSENT: motor sensory deficit Psychiatric exam: PRESENT: appropriate affect. ABSENT: homicidal ideation, suicidal ideation Skin exam: PRESENT: rash - xple rashes lower extremities, warm. ABSENT: cyanosis Results Laboratory Results: 02/18/18 08:32 02/18/18 04:38 02/18/18 02/18/18 04:38 08:32 WBC 13.0 H RBC 3.37 L Hgb 10.2 L Hct 30.1 L MCV 89 MCH 30.2 MCHC 33.9 RDW 15.7 H Plt Count 105 L Sodium 139.9 Potassium 4.2 Chloride 96 L Carbon Dioxide 30 Anion Gap 14 BUN 86 H Creatinine 5.86 H Est GFR ( Amer) 12 L Est GFR (Non-Af Amer) 10 L Glucose 103 Calcium 8.8 02/05/18 06:29 NT-Pro-B Natriuret Pep 4820 H Impressions: Venous Doppler Study 02/02/18 00:00 IMPRESSION: NO EVIDENCE DVT OR SVT IN EITHER LEG. Modified Barium Swallow 02/07/18 00:00 IMPRESSION: LARYNGEAL PENETRATION WITH THIN AND NECTAR THICK CONSISTENCIES. TRACHEAL ASPIRATION SEEN FROM RESIDUALS.PLEASE SEE SPEECH PATHOLOGIST REPORT FOR OTHER FINDINGS AND RECOMMENDATIONS. Soft Tissue Neck CT 02/07/18 00:00 IMPRESSION: 1. NO SIGNIFICANT FINDING IN THE SOFT TISSUES OF THE NECK. 2. MAXILLARY SINUS DISEASE. 3. PATCHY GROUND-GLASS OPACITIES IN THE UPPER LOBES, RIGHT GREATER THAN LEFT. MAY BE DUE TO ATELECTASIS, INFLAMMATION, OR INFECTION. Renal Ultrasound 02/07/18 17:29 IMPRESSION: CHRONIC MEDICAL RENAL DISEASE. NO HYDRONEPHROSIS. Chest X-Ray 02/14/18 10:58 IMPRESSION: HEART ENLARGED WITHOUT FAILURE. NO CHANGE. Assessment & Plan - Time Time Spent with patient: 15-24 minutes Medications reviewed and adjusted accordingly: Yes Anticipated discharge: SNF Within: within 72 hours - Inpatient Certification Based on my medical assessment, after consideration of the patient's comorbidities, presenting symptoms, or acuity I expect that the services needed warrant INPATIENT care.: Yes Medical Necessity: Need Close Monitoring Due to Risk of Patient Decompensation, Risk of Complication if Not Cared For in Hospital - Plan Summary Plan Summary: Acute kidney injury possibly secondary to vancomycin nephrotoxicity Continue dialysis and await return of kidney function hopefully soon looks like he may need dialysis director cpg at least for the near future Reattempt Permacath next week 2. Metabolic encephalopathy secondary to kidney failure. Slowly improving 3. Vasculitis which appears to be improving on Prednisone. Continue to Taper Prednisone as appropriate 4. Type 2 diabetes mellitus, uncontrolled adjust Insulin as needed 5. Hyperkalemia secondary to kidney function Continue to monitor and treat 6. Obesity- Weight control 7. Thrombocytopenia- likely from acute illness.
--- NOTE | 2018-02-18 15:17 | XCELERA REPORT ---
[address] [address] Transthoracic Echocardiogram Report Name: SALBADOR AVILES Age: 63 yrs Gender: Male : 1955 Patient Status: Inpatient Patient Location: [address] [place], [place] [address] Study Date: 02/17/2018 02:46 PM Height: 72 in Weight: 278 lb BSA: 2.5 m2 Procedure: A two-dimensional transthoracic echocardiogram with color flow and Doppler was performed. The study was technically difficult with many images being suboptimal in quality. Reason For Study: RT ATRIAL MASS History: RIGHT ATRIAL MASS. Ordering Physician: DIONNA AVILES Performed By: Kylah Leon Interpretation Summary No defenie Right trial mass.Recommend CAT if clinial suspicion is high. There is normal left ventricular wall thickness. The left ventricle is moderately dilated. LV EF is 35% Left ventricular systolic function is moderately reduced. LV diastolic function not assessed. There is moderate global hypokinesis of the left ventricle. There is no thrombus. The right ventricle is normal in size and function. The right atrium is normal. The left atrium is moderately dilated. There is no evidence of mitral valve prolapse. There is no vegetation seen on the mitral valve. There is no mitral valve stenosis. There is no mitral regurgitation noted. There is mild aortic stenosis There is a peak gradient of 16 mm of Hg. There is a trace amount of aortic regurgitation There is no LVOT obstruction. There is no tricuspid stenosis. There is a mild amount of tricuspid regurgitation There is mild pulmonary hypertension by echo RVSP is 43 mm of Hg , with RA mean of 10. There is no pericardial effusion. No defenie Right trial mass.Recommend CAT if clinial suspicion is high. MMode/2D Measurements & Calculations RVDd: 2.5 cm LVIDd: 6.6 cm FS: 18.4 % Ao root diam: 2.9 cm IVSd: 1.0 cm LVIDs: 5.4 cm EDV(Teich): 221.9 ml Ao root area: 6.6 cm2 LVPWd: 1.0 cm ESV(Teich): 139.3 ml LA dimension: 5.0 cm EF(Teich): 37.2 % Doppler Measurements & Calculations MV E max deena: MV P1/2t max deena: Ao V2 max: LV V1 max P.5 cm/sec 119.0 cm/sec 203.3 cm/sec 4.0 mmHg MV A max deena: MV P1/2t: 37.1 msec Ao max PG: LV V1 max: 61.7 cm/sec MVA(P1/2t): 5.9 cm2 16.5 mmHg 100.2 cm/sec MV E/A: 1.9 MV dec slope: 938.4 cm/sec2 MV dec time: 0.12 sec PA V2 max: TR max deena: MV P1/2t-pr_phl: 79.5 cm/sec 286.4 cm/sec 37.1 msec PA max P.5 mmHgTR max P.8 mmHg Left Ventricle There is normal left ventricular wall thickness. The left ventricle is moderately dilated. LV EF is 35%. Left ventricular systolic function is moderately reduced. LV diastolic function not assessed. There is moderate global hypokinesis of the left ventricle. There is no thrombus. Right Ventricle The right ventricle is normal in size and function. Atria The right atrium is normal. The left atrium is moderately dilated. Mitral Valve There is no evidence of mitral valve prolapse. There is no vegetation seen on the mitral valve. There is no mitral valve stenosis. There is no mitral regurgitation noted. Aortic Valve There is no aortic valvular vegetation. There is mild aortic stenosis. There is a peak gradient of 16 mm of Hg. There is no LVOT obstruction. There is a trace amount of aortic regurgitation. Tricuspid Valve There is no tricuspid stenosis. There is a mild amount of tricuspid regurgitation. There is mild pulmonary hypertension by echo. RVSP is 43 mm of Hg , with RA mean of 10. Pulmonic Valve There is no pulmonic valvular stenosis. There is no pulmonic valvular regurgitation. Great Vessels The aortic root is normal size. Effusions There is no pericardial effusion. : DIONNA AVILES > Anna Benites
--- NOTE | 2018-02-18 18:32 | PDOC PROGRESS REPORT ---
Subjective Progress Note for:: 02/18/18 Subjective:: I saw the patient during dialysis at around 8:30 AM this morning. Patient was comfortable he is communicating and more awake compared to last week. He does not really have any new complaints. His urine output is very slowly improving. A PermCath insertion was attempted yesterday by Dr. Matias however it was aborted because of a site of a possible right atrial mass or thrombus. Echocardiogram was done which did not show any atrial mass. I spoke to Dr. Matias and the plan is to attempt to put another PermCath on Wednesday. We will continue to monitor the patient's kidney function and see if there is going to be any sign of recovery. If he will recover soon enough then we may not need a PermCath however if he continues to be in the same state then we will plan for PermCath and dialysis on Wednesday. Reason For Visit: VENOUS STASIS,CELLULITIS Physical Exam Vital Signs: Temp Pulse Resp BP Pulse Ox 99.5 F 90 19 101/61 98 02/18/18 15:33 02/18/18 15:33 02/18/18 15:33 02/18/18 15:33 02/18/18 16:24 Pulse Oximeter Continuous Start: 02/05/18 18: 33 Freq: RTQ4 Status: Active Document 02/18/18 16:24 MED (Rec: 02/18/18 16:25 MED [id number]) Pulse Oximetry Assessment Oxygen Saturation (92-100) 98 Oxygen Flow Rate (L/min) 3 Oxygen Delivery Method Nasal Cannula Fraction of Inspired Oxygen (FIO2) 32 Equipment Usage Equipment in Use Continuous SpO2 Machine # 11 Intake & Output 02/17/18 02/18/18 02/19/18 06:59 06:59 06:59 Intake Total 592 675 Output Total 506 128 9677 Balance - Weight 126.2 kg 126.2 kg Vitals during dialysis: Blood pressure 92/45, heart rate of 97, blood flow rate of 300 and dialysate flow rate of 6 and abdominal per minute. Ultrafiltration about 2.5-3 L as tolerated. Exam: General appearance: PRESENT: no acute distress, cooperative, well-developed, well-nourished Head exam: PRESENT: atraumatic, normocephalic Eye exam: PRESENT: conjunctiva slightly pale, PERRLA. ABSENT: scleral icterus Neck exam: ABSENT: JVD Respiratory exam: PRESENT: Coarse breath sounds. Diffuse rhonchi but improved from the last few days ABSENT: crackles, rales, unlabored, wheezes Cardiovascular exam: PRESENT: Irregular rate rhythm -+S1, +S2. ABSENT: diastolic murmur, systolic murmur GI/Abdominal exam: PRESENT: normal bowel sounds, soft. ABSENT: guarding, mass, tenderness Extremities exam: Improved bilateral grade 1 lower extremity edema Neurological exam: PRESENT: alert, awake, oriented to person, place and time. Skin exam: PRESENT: dry, warm, and change skin lesions on both legs Cardiovascular exam: PRESENT: +S1, +S2 GI/Abdominal exam: PRESENT: normal bowel sounds, soft. ABSENT: organomegaly, tenderness Results Laboratory Results: 02/18/18 08:32 02/18/18 04:38 02/18/18 02/18/18 04:38 08:32 WBC 13.0 H RBC 3.37 L Hgb 10.2 L Hct 30.1 L MCV 89 MCH 30.2 MCHC 33.9 RDW 15.7 H Plt Count 105 L Sodium 139.9 Potassium 4.2 Chloride 96 L Carbon Dioxide 30 Anion Gap 14 BUN 86 H Creatinine 5.86 H Est GFR ( Amer) 12 L Est GFR (Non-Af Amer) 10 L Glucose 103 Calcium 8.8 02/05/18 06:29 NT-Pro-B Natriuret Pep 4820 H Impressions: Venous Doppler Study 02/02/18 00:00 IMPRESSION: NO EVIDENCE DVT OR SVT IN EITHER LEG. Modified Barium Swallow 02/07/18 00:00 IMPRESSION: LARYNGEAL PENETRATION WITH THIN AND NECTAR THICK CONSISTENCIES. TRACHEAL ASPIRATION SEEN FROM RESIDUALS.PLEASE SEE SPEECH PATHOLOGIST REPORT FOR OTHER FINDINGS AND RECOMMENDATIONS. Soft Tissue Neck CT 02/07/18 00:00 IMPRESSION: 1. NO SIGNIFICANT FINDING IN THE SOFT TISSUES OF THE NECK. 2. MAXILLARY SINUS DISEASE. 3. PATCHY GROUND-GLASS OPACITIES IN THE UPPER LOBES, RIGHT GREATER THAN LEFT. MAY BE DUE TO ATELECTASIS, INFLAMMATION, OR INFECTION. Renal Ultrasound 02/07/18 17:29 IMPRESSION: CHRONIC MEDICAL RENAL DISEASE. NO HYDRONEPHROSIS. Chest X-Ray 02/14/18 10:58 IMPRESSION: HEART ENLARGED WITHOUT FAILURE. NO CHANGE. Assessment & Plan - Diagnosis (1) Acute kidney injury Is this a current diagnosis for this admission?: Yes Plan: Secondary to vancomycin toxicity causing ATN. Urine output is slowly improving. He will probably need hemodialysis support for a little bit more of time before expected renal recovery. There was a failed attempt to place a PermCath yesterday due to possible right atrial mass which was disputed by echocardiogram results. We will monitor the patient's kidney function over the weekend and determine if he needs to continue dialysis support dialysis he would need a PermCath placement attempted again. I spoke to Dr. Matias and he will tentatively schedule the patient on Wednesday for PermCath placement. We did dialysis today for 3 hours, using the patient's right femoral trialysis catheter, with 2 potassium bath, blood flow rate of 300 mL per minute, dialysate flow rate of 600 mL per minute, ultrafiltration 2-3 L as tolerated, no heparin and no Procrit. We will plan to do another hemodialysis on Wednesday hopefully through a PermCath and reevaluate for any renal function recovery moving forward. (2) Somnolence Is this a current diagnosis for this admission?: Yes Plan: Much improved after initiation of hemodialysis and discontinuation of Lyrica. (3) Cellulitis of lower extremity Qualifiers: Laterality: right Qualified Code(s): L03.115 - Cellulitis of right lower limb Is this a current diagnosis for this admission?: Yes Plan: Treated with antibiotics and has completed its course. Currently off antibiotics. CARLOS and Anka serologies were negative. (4) Venous stasis dermatitis of both lower extremities Is this a current diagnosis for this admission?: Yes (5) Hyperphosphatemia Is this a current diagnosis for this admission?: Yes Plan: Recheck phosphorus level. Continue calcium acetate with meals. (6) Aspiration into airway Qualifiers: Encounter type: initial encounter Qualified Code(s): T17.908A - Unspecified foreign body in respiratory tract, part unspecified causing other injury, initial encounter Is this a current diagnosis for this admission?: Yes (7) Diabetes Qualifiers: Diabetes mellitus type: type 2 Diabetes mellitus jail insulin use: unspecified jail insulin use status Diabetes mellitus complication status : without complication Qualified Code(s): E11.9 - Type 2 diabetes mellitus without complications Is this a current diagnosis for this admission?: Yes - Time Time with patient: 15-25 minutes
[2018-02-18] MEDS: CETIRIZINE 10 MG TABLET PO SCH (22:20)
[2018-02-18] MEDS: ATORVASTATIN CALCIUM 80 MG TABLET PO SCH (22:20)
[2018-02-18] MEDS: INSULIN LISPRO 100 UNIT/ML 3 ML VIAL SUBCUT PRN (22:24)
[2018-02-19] MEDS: IPRATROPIUM/ALBUTEROL 0.5-2.5 MG/3 ML AMPUL NEB SCH ×4 (01:29→20:17)
[2018-02-19 06:00] LABS: ANION GAP 16 (5-19); BLOOD UREA NITROGEN 83 mg/dL (7-20); CALCIUM 8.8 mg/dL (8.4-10.2); CARBON DIOXIDE 28 mmol/L (22-30); CHLORIDE 96 mmol/L (98-107); GLUCOSE 101 mg/dL (75-110); SODIUM 139.5 mmol/L (137-145)
[2018-02-19] MEDS: DILTIAZEM HCL 30 MG TABLET PO SCH ×4 (06:04→23:24)
[2018-02-19] MEDS: LEVOTHYROXINE SODIUM 0.15 MG TABLET PO SCH (06:05)
[2018-02-19] MEDS: INSULIN LISPRO 100 UNIT/ML 3 ML VIAL SUBCUT SCH ×3 (09:24→17:53)
[2018-02-19] MEDS: CALCIUM ACETATE 667 MG CAPSULE PO SCH ×3 (09:31→17:58)
[2018-02-19] MEDS: INSULIN DETEMIR 100 UNIT/ML 3 ML PEN SUBCUT SCH ×2 (09:31→22:20)
[2018-02-19] MEDS: PREDNISONE 10 MG TABLET PO SCH (09:32)
[2018-02-19] MEDS: FUROSEMIDE 20 MG TABLET PO SCH ×2 (09:32→17:58)
[2018-02-19] MEDS: METOPROLOL TARTRATE 50 MG TABLET PO SCH ×2 (09:32→22:19)
[2018-02-19] MEDS: LACTOBACILLUS ACIDOPHILUS 250 MG TAB PO SCH ×2 (09:32→17:58)
[2018-02-19] MEDS: PANTOT AC/MIN OIL/PET HY-PHL OINT 50 GM TOP SCH ×3 (09:32→17:58)
[2018-02-19] MEDS: ASPIRIN 325 MG TABLET PO SCH (09:32)
[2018-02-19] MEDS: RISPERIDONE 1 MG TABLET PO SCH (09:33)
[2018-02-19] MEDS: FLUTICASONE NASAL SPRAY 50 MCG/SPRY 120 SPRAY/16 GM NASL SCH ×2 (09:33→22:19)
--- NOTE | 2018-02-19 17:56 | PDOC PROGRESS REPORT ---
Subjective Progress Note for:: 02/19/18 Subjective:: Still with weeping from his legs, erythema and swelling. 02/03/2018-the patient still has weeping from some areas of his lower leg. Overall there are no new complaints. 02/04/2018-the patient is somnolent at this encounter. He also has a more congested cough. 02/05/2018-the patient actually sounds more congested today. He is sleepy again today. 02/06/2018-the patient is still very congested. He has a gurgly cough. He has not become hypoxic. He is still complaining of food getting stuck in his throat. He continues to complain about coughing when swallowing. 02/07/2018-the patient is slightly better today. He did have a modified barium swallow. He still feels poorly. New acute kidney injury is now present. The patient is also developed diarrhea. This is been over the last 2-3 days. He was constipated and this could be secondary to aggressive bowel regimen. 02/19/2018-the patient is somewhat dismayed. He has not been feeling better. In fact he admits to episodes of short temper and frustration with his situation. He is tired of being sick. He also complains of discomfort with his [place] catheter. He is clearly frustrated with the current hospitalization. Reason For Visit: VENOUS STASIS,CELLULITIS Physical Exam Vital Signs: Temp Pulse Resp BP Pulse Ox 98.4 F 83 16 103/63 96 02/19/18 12:19 02/19/18 14:03 02/19/18 14:03 02/19/18 12:19 02/19/18 16:00 Pulse Oximeter Continuous Start: 02/05/18 18: 33 Freq: RTQ4 Status: Active Document 02/19/18 16:00 [facility] (Rec: 02/19/18 17:38 [facility] [id number]) Pulse Oximetry Assessment Oxygen Saturation (92-100) 96 Oxygen Flow Rate (L/min) 3 Oxygen Delivery Method Nasal Cannula Fraction of Inspired Oxygen (FIO2) 32 Equipment Usage Equipment in Use Continuous SpO2 Machine # 6 Intake & Output 02/18/18 02/19/18 02/20/18 06:59 06:59 06:59 Intake Total 675 320 Output Total 750 4350 Balance -75 -4030 Weight 126.2 kg 128.1 kg General appearance: PRESENT: no acute distress, cooperative, obese - BMI 38.3, well-developed Head exam: PRESENT: atraumatic, normocephalic Eye exam: PRESENT: conjunctiva pale. ABSENT: scleral icterus Ear exam: PRESENT: normal external ear exam Mouth exam: PRESENT: moist, tongue midline Respiratory exam: PRESENT: rhonchi - Rhonchi on the right., symmetrical, unlabored, other - Coarse breath sounds on the left.. ABSENT: wheezes Cardiovascular exam: PRESENT: RRR, +S1, +S2 GI/Abdominal exam: PRESENT: normal bowel sounds, soft. ABSENT: distended, guarding, tenderness Extremities exam: PRESENT: pedal edema, other - Both legs show improvement with regard to his previous erythema and cellulitis. The right leg is still more swollen than the left. Musculoskeletal exam: PRESENT: normal inspection Neurological exam: PRESENT: alert, awake, oriented to person, oriented to place , oriented to situation Psychiatric exam: PRESENT: appropriate affect, other - Frustrated as noted above.. ABSENT: agitated, anxious Focused psych exam: ABSENT: restlessness Skin exam: PRESENT: other - Excoriations on the right leg. Scar tissue on the left. Results Laboratory Results: 02/18/18 08:32 02/19/18 04:53 02/19/18 04:53 Sodium 139.5 Potassium 4.0 Chloride 96 L Carbon Dioxide 28 Anion Gap 16 BUN 83 H Creatinine 6.05 H Est GFR ( Amer) 11 L Est GFR (Non-Af Amer) 9 L Glucose 101 Calcium 8.8 02/05/18 06:29 NT-Pro-B Natriuret Pep 4820 H Impressions: Venous Doppler Study 02/02/18 00:00 IMPRESSION: NO EVIDENCE DVT OR SVT IN EITHER LEG. Modified Barium Swallow 02/07/18 00:00 IMPRESSION: LARYNGEAL PENETRATION WITH THIN AND NECTAR THICK CONSISTENCIES. TRACHEAL ASPIRATION SEEN FROM RESIDUALS.PLEASE SEE SPEECH PATHOLOGIST REPORT FOR OTHER FINDINGS AND RECOMMENDATIONS. Soft Tissue Neck CT 02/07/18 00:00 IMPRESSION: 1. NO SIGNIFICANT FINDING IN THE SOFT TISSUES OF THE NECK. 2. MAXILLARY SINUS DISEASE. 3. PATCHY GROUND-GLASS OPACITIES IN THE UPPER LOBES, RIGHT GREATER THAN LEFT. MAY BE DUE TO ATELECTASIS, INFLAMMATION, OR INFECTION. Renal Ultrasound 02/07/18 17:29 IMPRESSION: CHRONIC MEDICAL RENAL DISEASE. NO HYDRONEPHROSIS. Chest X-Ray 02/14/18 10:58 IMPRESSION: HEART ENLARGED WITHOUT FAILURE. NO CHANGE. Assessment & Plan - Diagnosis (1) Acute kidney failure Qualifiers: Acute renal failure type: unspecified Qualified Code(s): N17.9 - Acute kidney failure, unspecified Is this a current diagnosis for this admission?: Yes Plan: 02/07/2018-the serum creatinine was increasing. I did give the patient some fluids to compensate. Unfortunately the serum creatinine almost doubled today. It is greater than 6.0. Nephrology will be seeing the patient. I have discontinued the vancomycin. I await nephrology suggestions for ongoing treatment plan. 02/19/2018-the patient remains on hemodialysis. They are trying to place a permacath catheter for ongoing dialysis. He is kidneys do not seem to have responded or shown any improvement in function. (2) CAD (coronary artery disease), [place] coronary artery Qualifiers: [place] vs. transplanted heart: [place] heart Associated angina: without angina Qualified Code(s): I25.10 - Atherosclerotic heart disease of [place] coronary artery without angina pectoris Is this a current diagnosis for this admission?: Yes Plan: Continue metoprolol, benazepril, diltiazem, furosemide and Lipitor. Because of the congested cough with rales and wheeze I have increased the furosemide to 40 mg daily. I will repeat a chest x-ray today and obtain a brain natriuretic peptide. 02/06/2018-the patient's blood pressure has been low intermittently. His brain natruretic peptide is high. I am going to decrease his diltiazem dose in order to administer more Lasix. If his rate increases so we will consider increasing his metoprolol. 02/07/2018-I did decrease the diltiazem to 120 mg daily. This will be changed to 30 mg every 6 hours because of his aspiration. His blood pressure and pulse have remained reasonably controlled. 02/19/2018-I did review the results of his recent echocardiogram. He has ventricular systolic failure with a depressed ejection fraction of approximately 35%. (3) Aspiration into airway Qualifiers: Encounter type: subsequent encounter Qualified Code(s): T17.908D - Unspecified foreign body in respiratory tract, part unspecified causing other injury, subsequent encounter Is this a current diagnosis for this admission?: Yes Plan: 02/07/2018-the patient has had a congested cough. He recognized that he was coughing when he ate. This did not significantly improve during his stay. Modified barium swallow was obtained today which showed [place] aspiration, significant reflux and pooling in the vallecula. I will ask GI to see the patient for esophagogastroscopy. Speech therapy has made dietary changes to compensate for his compromised swallow. We will also obtain a CT scan for the soft tissues in the neck to rule out any anatomical issues that might be compromising his swallow. 02/19/2018-the patient is still on altered texture diet. He admits that at times his swallow seems "okay "but at other times he coughs. The rhonchorous breath sounds on the right are likely due to recurrent aspiration. (4) Atrial fibrillation Qualifiers: Atrial fibrillation type: paroxysmal Qualified Code(s): I48.0 - Paroxysmal atrial fibrillation Is this a current diagnosis for this admission?: Yes Plan: The patient had an episode of tachycardia yesterday. He was placed on telemetry. He is in atrial fibrillation. He is already on diltiazem and metoprolol. He is not on long-term anticoagulation. I will monitor and if there is no contraindication consider initiating therapy. 02/06/2018-the patient is still in A. fib. I am going to add Eliquis. I will discontinue his subcutaneous heparin tomorrow. We will need to monitor his rate. I am lowering his diltiazem dose in order to administer more furosemide. Because of the ongoing atrial fibrillation I did add Eliquis. I will discontinue his subcutaneous heparin. If he needs a gastroscopy we will need to hold the Eliquis before hand. 02/19/2018-currently stable on his medication regimen. He is no longer on long- term anticoagulation. The risks at this time outweigh the benefits. (5) Cellulitis of lower extremity Qualifiers: Laterality: right Qualified Code(s): L03.115 - Cellulitis of right lower limb Is this a current diagnosis for this admission?: Yes Plan: The patient has cellulitis of both lower extremities. He is on Zosyn and vancomycin. MRSA screen is pending. If negative consider discontinuing vancomycin. There is asymmetric swelling with his right leg greater than his left. Doppler study was negative for DVT. This is possibly chronic. He still has significant erythema and drainage. Consider multilayer compression wraps. 02/03/2018-bilateral cellulitis. I will discontinue his vancomycin as the MRSA screening test was negative. We will continue the Zosyn. He still has discomfort on the legs making compression wrap therapy unreasonable. 02/04/2018-we will continue Zosyn therapy since the MRSA screen was negative. I would like to complete at least 10 days of therapy. It will also be of benefit to apply moisturizer to the patient's legs twice daily. 02/05/2018-the legs are improving. There is less erythema and less swelling. He is on Zosyn. I am adding vancomycin more for his pulmonary issues. May extend the Zosyn to match the vancomycin. 02/06/2018-continued improvement. Continue vancomycin and Zosyn. 02/07/2018-we will continue the Zosyn. The patient's acute kidney injury has forced me to discontinue the vancomycin completely. I will check levels. Resume when appropriate. I will also adjust the Zosyn. 02/19/2018-cellulitis resolved. Antibiotic therapy completed. (6) Diabetes Qualifiers: Diabetes mellitus type: type 2 Diabetes mellitus group home insulin use: unspecified group home insulin use status Diabetes mellitus complication status : without complication Qualified Code(s): E11.9 - Type 2 diabetes mellitus without complications Is this a current diagnosis for this admission?: Yes Plan: We will continue his insulin therapy. With the infection he is exhibiting some high glucose readings. He is on Humalog sliding scale. 02/03/2018-he still has elevated serum glucose levels but they seem to be slowly trending downward. There is still over 200 for the most part. I will increase his bedtime Levemir to 45 units and increase his morning Levemir to 47 units. We will continue the sliding scale coverage. 02/04/2018-just increase the Levemir yesterday. I will await 1 or 2 days and monitor the fingersticks before making additional changes. 02/05/2018-his Accu-Cheks still sore from variability but overall seems to be improving. 02/06/2018-the patient's glucose was high this morning. He did receive a dose of Solu-Medrol last night. I am going to place him on prednisone 20 mg daily for pulmonary reasons. I believe his current Lantus dose unchanged and monitor the sliding scale. His glucose should decrease with the decreased steroid dose. 02/07/2018-the Levemir is now 55 units in the morning and 45 units at night. He is still having elevated glucose readings. I will make slow adjustments based on the Humalog sliding scale requirements. 02/19/2018-still showing fluctuations in his insulin regimen. He is on Levemir twice daily as well as 10 units of Humalog with meals. I will need to review further before deciding on any changes to his regimen. (7) Hypothyroid Qualifiers: Hypothyroidism type: unspecified Qualified Code(s): E03.9 - Hypothyroidism , unspecified Is this a current diagnosis for this admission?: Yes Plan: Continue levothyroxine 150 mcg daily. - Time Time Spent with patient: 25-34 minutes Medications reviewed and adjusted accordingly: Yes
[2018-02-19] MEDS: INSULIN LISPRO 100 UNIT/ML 3 ML VIAL SUBCUT PRN (17:58)
[2018-02-19] MEDS: ATORVASTATIN CALCIUM 80 MG TABLET PO SCH (22:19)
[2018-02-19] MEDS: CETIRIZINE 10 MG TABLET PO SCH (22:20)
[2018-02-20] MEDS: IPRATROPIUM/ALBUTEROL 0.5-2.5 MG/3 ML AMPUL NEB SCH ×4 (02:06→19:24)
[2018-02-20 05:37] LABS: ANION GAP 17 (5-19); BLOOD UREA NITROGEN 94 mg/dL (7-20); CARBON DIOXIDE 28 mmol/L (22-30); CHLORIDE 95 mmol/L (98-107); GLUCOSE 111 mg/dL (75-110); SODIUM 140.3 mmol/L (137-145)
[2018-02-20] MEDS: LEVOTHYROXINE SODIUM 0.15 MG TABLET PO SCH (05:45)
[2018-02-20] MEDS: DILTIAZEM HCL 30 MG TABLET PO SCH ×4 (05:45→23:04)
[2018-02-20] MEDS: INSULIN LISPRO 100 UNIT/ML 3 ML VIAL SUBCUT SCH ×3 (07:42→16:59)
[2018-02-20] MEDS: CALCIUM ACETATE 667 MG CAPSULE PO SCH ×3 (10:25→18:01)
[2018-02-20] MEDS: LACTOBACILLUS ACIDOPHILUS 250 MG TAB PO SCH ×2 (10:25→18:01)
[2018-02-20] MEDS: INSULIN DETEMIR 100 UNIT/ML 3 ML PEN SUBCUT SCH ×2 (10:28→22:47)
[2018-02-20] MEDS: PANTOT AC/MIN OIL/PET HY-PHL OINT 50 GM TOP SCH ×3 (10:28→18:03)
[2018-02-20] MEDS: ASPIRIN 325 MG TABLET PO SCH (10:28)
[2018-02-20] MEDS: METOPROLOL TARTRATE 50 MG TABLET PO SCH ×2 (10:28→22:46)
[2018-02-20] MEDS: FLUTICASONE NASAL SPRAY 50 MCG/SPRY 120 SPRAY/16 GM NASL SCH ×2 (10:29→22:46)
[2018-02-20] MEDS: FUROSEMIDE 20 MG TABLET PO SCH ×2 (10:29→18:03)
[2018-02-20] MEDS: PREDNISONE 10 MG TABLET PO SCH (10:29)
[2018-02-20] MEDS: RISPERIDONE 1 MG TABLET PO SCH (10:30)
--- NOTE | 2018-02-20 13:52 | PDOC PROGRESS REPORT ---
Subjective Progress Note for:: 02/20/18 Subjective:: Still with weeping from his legs, erythema and swelling. 02/03/2018-the patient still has weeping from some areas of his lower leg. Overall there are no new complaints. 02/04/2018-the patient is somnolent at this encounter. He also has a more congested cough. 02/05/2018-the patient actually sounds more congested today. He is sleepy again today. 02/06/2018-the patient is still very congested. He has a gurgly cough. He has not become hypoxic. He is still complaining of food getting stuck in his throat. He continues to complain about coughing when swallowing. 02/07/2018-the patient is slightly better today. He did have a modified barium swallow. He still feels poorly. New acute kidney injury is now present. The patient is also developed diarrhea. This is been over the last 2-3 days. He was constipated and this could be secondary to aggressive bowel regimen. 02/19/2018-the patient is somewhat dismayed. He has not been feeling better. In fact he admits to episodes of short temper and frustration with his situation. He is tired of being sick. He also complains of discomfort with his Dorantes catheter. He is clearly frustrated with the current hospitalization. February 20, 2018-the patient is very frustrated with his soft ground diet with nectar thick liquids. He is extremely tired of the applesauce. He does have a diet Pepsi and wonders why he cannot drink regular fluids. Reason For Visit: VENOUS STASIS,CELLULITIS Physical Exam Vital Signs: Temp Pulse Resp BP Pulse Ox 97.5 F 86 14 100/77 97 02/20/18 11:58 02/20/18 12:08 02/20/18 12:08 02/20/18 11:58 02/20/18 12:08 Pulse Oximeter Continuous Start: 02/05/18 18: 33 Freq: RTQ4 Status: Active Document 02/20/18 12:08 [facility] (Rec: 02/20/18 12:10 [facility] [email or web address]) Pulse Oximetry Assessment Oxygen Saturation (92-100) 97 Oxygen Flow Rate (L/min) 3 Oxygen Delivery Method Nasal Cannula Equipment Usage Equipment in Use Continuous SpO2 Machine # 6 Intake & Output 02/19/18 02/20/18 02/21/18 06:59 06:59 06:59 Intake Total 320 909 Output Total 4350 1075 Balance -4030 -166 Weight 128.1 kg 128.1 kg General appearance: PRESENT: no acute distress, obese - BMI 38.3, well-developed Eye exam: PRESENT: conjunctiva pink. ABSENT: scleral icterus Ear exam: PRESENT: normal external ear exam Mouth exam: PRESENT: moist, tongue midline Respiratory exam: PRESENT: rhonchi - Rhonchorous breath sounds again on the right. Occasional faint expiratory wheeze. Left lung sounds clear., symmetrical, unlabored Cardiovascular exam: PRESENT: RRR, +S1, +S2 GI/Abdominal exam: PRESENT: normal bowel sounds, soft. ABSENT: distended, guarding, tenderness Musculoskeletal exam: PRESENT: normal inspection Neurological exam: PRESENT: alert, awake, oriented to person, oriented to place , oriented to situation Psychiatric exam: PRESENT: appropriate affect, normal mood Skin exam: PRESENT: other - Excoriations right leg Results Laboratory Results: 02/18/18 08:32 02/20/18 04:56 02/20/18 04:56 Sodium 140.3 Potassium 4.0 Chloride 95 L Carbon Dioxide 28 Anion Gap 17 BUN 94 H Creatinine 7.10 H Est GFR ( Amer) 10 L Est GFR (Non-Af Amer) 8 L Glucose 111 H Calcium 9.0 02/05/18 06:29 NT-Pro-B Natriuret Pep 4820 H Impressions: Venous Doppler Study 02/02/18 00:00 IMPRESSION: NO EVIDENCE DVT OR SVT IN EITHER LEG. Modified Barium Swallow 02/07/18 00:00 IMPRESSION: LARYNGEAL PENETRATION WITH THIN AND NECTAR THICK CONSISTENCIES. TRACHEAL ASPIRATION SEEN FROM RESIDUALS.PLEASE SEE SPEECH PATHOLOGIST REPORT FOR OTHER FINDINGS AND RECOMMENDATIONS. Soft Tissue Neck CT 02/07/18 00:00 IMPRESSION: 1. NO SIGNIFICANT FINDING IN THE SOFT TISSUES OF THE NECK. 2. MAXILLARY SINUS DISEASE. 3. PATCHY GROUND-GLASS OPACITIES IN THE UPPER LOBES, RIGHT GREATER THAN LEFT. MAY BE DUE TO ATELECTASIS, INFLAMMATION, OR INFECTION. Renal Ultrasound 02/07/18 17:29 IMPRESSION: CHRONIC MEDICAL RENAL DISEASE. NO HYDRONEPHROSIS. Chest X-Ray 02/14/18 10:58 IMPRESSION: HEART ENLARGED WITHOUT FAILURE. NO CHANGE. Assessment & Plan - Diagnosis (1) Acute kidney failure Qualifiers: Acute renal failure type: unspecified Qualified Code(s): N17.9 - Acute kidney failure, unspecified Is this a current diagnosis for this admission?: Yes Plan: 02/07/2018-the serum creatinine was increasing. I did give the patient some fluids to compensate. Unfortunately the serum creatinine almost doubled today. It is greater than 6.0. Nephrology will be seeing the patient. I have discontinued the vancomycin. I await nephrology suggestions for ongoing treatment plan. 02/19/2018-the patient remains on hemodialysis. They are trying to place a permacath catheter for ongoing dialysis. He is kidneys do not seem to have responded or shown any improvement in function. February 20, 2018-surgery will attempt placement of another permacath tomorrow. Continue hemodialysis per nephrology. (2) CAD (coronary artery disease), zuni coronary artery Qualifiers: [place] vs. transplanted heart: zuni heart Associated angina: without angina Qualified Code(s): I25.10 - Atherosclerotic heart disease of zuni coronary artery without angina pectoris Is this a current diagnosis for this admission?: Yes Plan: Continue metoprolol, benazepril, diltiazem, furosemide and Lipitor. Because of the congested cough with rales and wheeze I have increased the furosemide to 40 mg daily. I will repeat a chest x-ray today and obtain a brain natriuretic peptide. 02/06/2018-the patient's blood pressure has been low intermittently. His brain natruretic peptide is high. I am going to decrease his diltiazem dose in order to administer more Lasix. If his rate increases so we will consider increasing his metoprolol. 02/07/2018-I did decrease the diltiazem to 120 mg daily. This will be changed to 30 mg every 6 hours because of his aspiration. His blood pressure and pulse have remained reasonably controlled. 02/19/2018-I did review the results of his recent echocardiogram. He has ventricular systolic failure with a depressed ejection fraction of approximately 35%. February 20, 2018-cardiac status is stable despite depressed ejection fraction. (3) Aspiration into airway Qualifiers: Encounter type: subsequent encounter Qualified Code(s): T17.908D - Unspecified foreign body in respiratory tract, part unspecified causing other injury, subsequent encounter Is this a current diagnosis for this admission?: Yes Plan: 02/07/2018-the patient has had a congested cough. He recognized that he was coughing when he ate. This did not significantly improve during his stay. Modified barium swallow was obtained today which showed namrata aspiration, significant reflux and pooling in the vallecula. I will ask GI to see the patient for esophagogastroscopy. Speech therapy has made dietary changes to compensate for his compromised swallow. We will also obtain a CT scan for the soft tissues in the neck to rule out any anatomical issues that might be compromising his swallow. 02/19/2018-the patient is still on altered texture diet. He admits that at times his swallow seems "okay "but at other times he coughs. The rhonchorous breath sounds on the right are likely due to recurrent aspiration. February 20, 2018-the right lung still sounds coarse likely due to recurrent aspiration. I did try to explain that we are trying to protect his lung. In the past patients have opted to eat a regular diet despite the risks. I do not know if he clearly understands all of the concerns about a decision like this. At this time we will continue his current diet. (4) Atrial fibrillation Qualifiers: Atrial fibrillation type: paroxysmal Qualified Code(s): I48.0 - Paroxysmal atrial fibrillation Is this a current diagnosis for this admission?: Yes Plan: The patient had an episode of tachycardia yesterday. He was placed on telemetry. He is in atrial fibrillation. He is already on diltiazem and metoprolol. He is not on long-term anticoagulation. I will monitor and if there is no contraindication consider initiating therapy. 02/06/2018-the patient is still in A. fib. I am going to add Eliquis. I will discontinue his subcutaneous heparin tomorrow. We will need to monitor his rate. I am lowering his diltiazem dose in order to administer more furosemide. Because of the ongoing atrial fibrillation I did add Eliquis. I will discontinue his subcutaneous heparin. If he needs a gastroscopy we will need to hold the Eliquis before hand. 02/19/2018-currently stable on his medication regimen. He is no longer on long- term anticoagulation. The risks at this time outweigh the benefits. February 20, 2018- (5) Cellulitis of lower extremity Qualifiers: Laterality: right Qualified Code(s): L03.115 - Cellulitis of right lower limb Is this a current diagnosis for this admission?: Yes Plan: The patient has cellulitis of both lower extremities. He is on Zosyn and vancomycin. MRSA screen is pending. If negative consider discontinuing vancomycin. There is asymmetric swelling with his right leg greater than his left. Doppler study was negative for DVT. This is possibly chronic. He still has significant erythema and drainage. Consider multilayer compression wraps. 02/03/2018-bilateral cellulitis. I will discontinue his vancomycin as the MRSA screening test was negative. We will continue the Zosyn. He still has discomfort on the legs making compression wrap therapy unreasonable. 02/04/2018-we will continue Zosyn therapy since the MRSA screen was negative. I would like to complete at least 10 days of therapy. It will also be of benefit to apply moisturizer to the patient's legs twice daily. 02/05/2018-the legs are improving. There is less erythema and less swelling. He is on Zosyn. I am adding vancomycin more for his pulmonary issues. May extend the Zosyn to match the vancomycin. 02/06/2018-continued improvement. Continue vancomycin and Zosyn. 02/07/2018-we will continue the Zosyn. The patient's acute kidney injury has forced me to discontinue the vancomycin completely. I will check levels. Resume when appropriate. I will also adjust the Zosyn. 02/19/2018-cellulitis resolved. Antibiotic therapy completed. 02/20/2018- will receive 1 gram ancef before surgery in am. (6) Diabetes Qualifiers: Diabetes mellitus type: type 2 Diabetes mellitus long term care pharmacist insulin use: unspecified long term care pharmacist insulin use status Diabetes mellitus complication status : without complication Qualified Code(s): E11.9 - Type 2 diabetes mellitus without complications Is this a current diagnosis for this admission?: Yes Plan: We will continue his insulin therapy. With the infection he is exhibiting some high glucose readings. He is on Humalog sliding scale. 02/03/2018-he still has elevated serum glucose levels but they seem to be slowly trending downward. There is still over 200 for the most part. I will increase his bedtime Levemir to 45 units and increase his morning Levemir to 47 units. We will continue the sliding scale coverage. 02/04/2018-just increase the Levemir yesterday. I will await 1 or 2 days and monitor the fingersticks before making additional changes. 02/05/2018-his Accu-Cheks still sore from variability but overall seems to be improving. 02/06/2018-the patient's glucose was high this morning. He did receive a dose of Solu-Medrol last night. I am going to place him on prednisone 20 mg daily for pulmonary reasons. I believe his current Lantus dose unchanged and monitor the sliding scale. His glucose should decrease with the decreased steroid dose. 02/07/2018-the Levemir is now 55 units in the morning and 45 units at night. He is still having elevated glucose readings. I will make slow adjustments based on the Humalog sliding scale requirements. 02/19/2018-still showing fluctuations in his insulin regimen. He is on Levemir twice daily as well as 10 units of Humalog with meals. I will need to review further before deciding on any changes to his regimen. February 20, 2018-the patient will be n.p.o. after midnight. I have asked that he only get half of his dose of Levemir tonight and none in the morning. He will still have the sliding scale coverage. (7) Hypothyroid Qualifiers: Hypothyroidism type: unspecified Qualified Code(s): E03.9 - Hypothyroidism , unspecified Is this a current diagnosis for this admission?: Yes Plan: Continue levothyroxine 150 mcg daily. (8) Dysphagia Qualifiers: Dysphagia type: pharyngeal phase Qualified Code(s): R13.13 - Dysphagia, pharyngeal phase Is this a current diagnosis for this admission?: Yes Plan: February 20, 2018-as noted above the patient is very frustrated with his diet. I do not believe he fully comprehends the nature of going back to regular diet with the high risk of aspiration. We will continue his current diet at this time. - Time Time Spent with patient: 25-34 minutes Medications reviewed and adjusted accordingly: Yes
[2018-02-20] MEDS: CETIRIZINE 10 MG TABLET PO SCH (22:46)
[2018-02-20] MEDS: ATORVASTATIN CALCIUM 80 MG TABLET PO SCH (22:46)
[2018-02-21] MEDS: IPRATROPIUM/ALBUTEROL 0.5-2.5 MG/3 ML AMPUL NEB SCH ×4 (02:11→19:46)
[2018-02-21] MEDS: DEXTROSE 50%-WATER 25 GM/50 ML DISP.SYRIN IV PRN (04:45)
[2018-02-21] MEDS ORDERED: NORMAL SALINE 1000 ML 1,000 ML IV PRN (05:00)
[2018-02-21] MEDS ORDERED: CEFAZOLIN 1 GM/D5W RTU 1 GM/50 ML RTUPB IV PRN (05:00)
[2018-02-21] MEDS ORDERED: DEXTROSE 50%-WATER 25 GM/50 ML DISP.SYRIN IV ONE (05:30)
[2018-02-21 05:31] LABS: HEMATOCRIT 27.8 % (37.9-51.0); HEMOGLOBIN 9.4 g/dL (13.5-17.0); MEAN CORPUSCULAR HGB CONC 33.9 g/dL (32.0-36.0); MEAN CORPUSCULAR VOLUME 89 fl (80-97); PLATELET COUNT 145 10^3/uL (150-450); RED BLOOD COUNT 3.14 10^6/uL (4.35-5.55); RED CELL DISTRIBUTION WIDTH 15.4 % (11.5-14.0)
[2018-02-21 05:57] LABS: ABSOLUTE LYMPHOCYTES# (MANUAL) 0.7 10^3/uL (0.5-4.7); ABSOLUTE MONOCYTES # (MANUAL) 1.1 10^3/uL (0.1-1.4); ABSOLUTE NEUTROPHILS# (MANUAL) 15.8 10^3/uL (1.7-8.2); BASOPHILS % (MANUAL) 1 % (0-2); EOSINOPHILS % (MANUAL) 1 % (0-6); LYMPHOCYTES % (MANUAL) 4 % (13-45); MONOCYTES % (MANUAL) 6 % (3-13); SEGMENTED NEUTROPHILS % (MAN) 88 % (42-78); TOTAL CELLS COUNTED 100
[2018-02-21 05:59] LABS: ANISOCYTOSIS SLIGHT; BURR CELLS SLIGHT; PLATELET COMMENT ADEQUATE; POIKILOCYTOSIS SLIGHT; SCHISTOCYTES 1+; TEAR DROP CELLS 2+; TOXIC GRANULATION SLIGHT
[2018-02-21 06:05] LABS: ANION GAP 17 (5-19); BLOOD UREA NITROGEN 100 mg/dL (7-20); CALCIUM 8.6 mg/dL (8.4-10.2); CARBON DIOXIDE 29 mmol/L (22-30); CHLORIDE 94 mmol/L (98-107); GLUCOSE 85 mg/dL (75-110); SODIUM 139.7 mmol/L (137-145)
[2018-02-21] MEDS: INSULIN LISPRO 100 UNIT/ML 3 ML VIAL SUBCUT SCH ×3 (10:22→18:47)
[2018-02-21] MEDS: INSULIN DETEMIR 100 UNIT/ML 3 ML PEN SUBCUT SCH ×2 (10:22→22:07)
[2018-02-21] MEDS: CALCIUM ACETATE 667 MG CAPSULE PO SCH ×3 (10:24→18:53)
[2018-02-21] MEDS: RISPERIDONE 1 MG TABLET PO SCH (10:24)
[2018-02-21] MEDS: FLUTICASONE NASAL SPRAY 50 MCG/SPRY 120 SPRAY/16 GM NASL SCH ×2 (10:25→22:07)
[2018-02-21] MEDS: ASPIRIN 325 MG TABLET PO SCH (10:32)
[2018-02-21] MEDS: LACTOBACILLUS ACIDOPHILUS 250 MG TAB PO SCH ×2 (10:32→18:53)
[2018-02-21] MEDS: LEVOTHYROXINE SODIUM 0.15 MG TABLET PO SCH (10:32)
[2018-02-21] MEDS: PREDNISONE 10 MG TABLET PO SCH (10:33)
[2018-02-21] MEDS: DILTIAZEM HCL 30 MG TABLET PO SCH ×3 (10:34→18:59)
[2018-02-21] MEDS: METOPROLOL TARTRATE 50 MG TABLET PO SCH ×2 (10:34→22:10)
[2018-02-21] MEDS: FUROSEMIDE 20 MG TABLET PO SCH ×2 (10:34→18:53)
[2018-02-21] MEDS: PANTOT AC/MIN OIL/PET HY-PHL OINT 50 GM TOP SCH ×3 (10:38→19:00)
[2018-02-21] MEDS ORDERED: EPOETIN ALFA INJ 20000 UNIT/1 ML VIAL (RENAL) IV PRN (11:16)
[2018-02-21] MEDS ORDERED: LIDOCAINE 0.5% INJ-PF (5 MG/ML) 50 ML SDV ONE (12:12)
[2018-02-21] MEDS ORDERED: BACITRACIN INJ 50,000 UNIT VIAL ONE (12:12)
[2018-02-21] MEDS ORDERED: MIDAZOLAM 2 MG/2 ML INJ ONE (12:47)
[2018-02-21] MEDS ORDERED: CEFAZOLIN INJ 1 GM VIAL ONE (12:47)
[2018-02-21] MEDS ORDERED: FENTANYL CITRATE INJ/PF 100 MCG/2 ML AMPUL ONE (12:48)
--- NOTE | 2018-02-21 13:45 | Operative Report ---
Operative Report DATE OF SURGERY: 02/08/18 PREOPERATIVE DIAGNOSIS: Renal failure, critical for hemodialysis access POSTOPERATIVE DIAGNOSIS: Same OPERATION: Right internal jugular vein access under real-time ultrasound guidance. Venogram of superior vena cava and right atrium. Insertion of permacatheter via real-time access in the right internal jugular vein. 3. Angiogram and interpretation. SURGEON: DIONNA REED RIB STIFFENER AND HEEL DIPPER: None ANESTHESIA: Moderate Sedation TISSUE REMOVED OR ALTERED: None ESTIMATED BLOOD LOSS: 2 mL. INTRAOPERATIVE FINDINGS: Consisted of a satisfactory right internal jugular vein estimated to be about 1.5 cm in diameter. Access gained without difficulty under ultrasound guidance. A venogram in the superior vena cava was done because of unusual tracts taken by the guidewire. The position axis was consistent with the right atrium. Successfully into the right atrium. Once the location was verified, a 27 cm long permacatheter was successfully inserted and angiogram verified that its position was in the right atrial pool. PROCEDURE: After obtaining informed consent, the patient was taken to the [[employer]] and positioned supine. The [right neck] and chest were prepared with chlorhexidine and draped out with sterile linen. After the " universal timeout", in which it was verified that the patient continued to receive antibiotic, the procedure commenced. A steriley sheathed ultrasound probe was used to evaluate the [ right internal jugular] vein. Local anesthesia was infiltrated adjacent to the probe. Access into the [right internal jugular] vein was obtained using a micropuncture needle, followed by micropuncture wire and then a micropuncture catheter. This was followed by introduction of a 0.035 guidewire the tip of which was placed down into the inferior vena cava . A Kumpe catheter was now placed over the guidewire and positioned in the approximate vicinity of the right atrial pool. An angiogram verified this. A 27 cm long [split catheter] was now positioned over the chest and an exit site marked and locally anesthetized ,the catheter was placed between the 2 incisions. Proximally, the catheter was now positioned using a peel-away sheath, after dilation. Easy ingress of heparinized solution and egress of blood obtained through both ports. A completion angiogram was done by injecting contrast. The findings were as dictated. The neck incision was now closed using interrupted 3-0 PDS to the subcutaneous tissues, the catheter was anchored at the exit site using 3-0 PDS. A Biopatch device was now placed adjacent to the catheter. Dressings were applied and the procedure concluded. Exposure time: [0.7 minutes]. Exposure: 52.43 Mimi Magana. Contrast amount: [5 mL] of [id number] low osmolality. Copies of the dictated operative report for Dr. Dionna Matias MD.concluded. Copies of the dictated operative report for Dr. Dionna Matias MD.
--- NOTE | 2018-02-21 15:36 | RADIOLOGY REPORT (SQ) ---
EXAM DESCRIPTION: TUNNELED CENTRAL LINE; GUIDANCE FLUOROSCOPIC COMPLETED DATE/TIME: 02/21/2018 1:53 pm REASON FOR STUDY: NEED FOR VASCULAR ACCESS COMPARISON: Chest film 02/14/2018 FLUOROSCOPY TIME: 0.7 minutes 49 digital images saved to PACS. TECHNIQUE: Intra-operative images acquired during surgical procedure to evaluate progress. NUMBER OF IMAGES: 49 digital fluoroscopic images LIMITATIONS: None. FINDINGS: Intraprocedural imaging and fluoro during placement of a right-sided jugular central venou s dialysis catheter with the tip in the right atrium. Please see the operative report further detail s IMPRESSION: INTRA PROCEDURAL IMAGING ABOVE . COMMENT: Quality ID [id number]: Final reports for procedures using fluoroscopy that document radiation exp osure indices, or exposure time and number of fluorographic images (if radiation exposure indices are not available) Please consult full operative report of the attending physician for description of the procedure. TECHNICAL DOCUMENTATION: JOB ID: [id number] [employer]- All Rights Reserved Reading location - IP/workstation name: [email or web address]
--- NOTE | 2018-02-21 15:36 | RADIOLOGY REPORT (SQ) ---
EXAM DESCRIPTION: TUNNELED CENTRAL LINE; GUIDANCE FLUOROSCOPIC COMPLETED DATE/TIME: 02/21/2018 1:53 pm REASON FOR STUDY: NEED FOR VASCULAR ACCESS COMPARISON: Chest film 02/14/2018 FLUOROSCOPY TIME: 0.7 minutes 49 digital images saved to PACS. TECHNIQUE: Intra-operative images acquired during surgical procedure to evaluate progress. NUMBER OF IMAGES: 49 digital fluoroscopic images LIMITATIONS: None. FINDINGS: Intraprocedural imaging and fluoro during placement of a right-sided jugular central venou s dialysis catheter with the tip in the right atrium. Please see the operative report further detail s IMPRESSION: INTRA PROCEDURAL IMAGING ABOVE . COMMENT: Quality ID [id number]: Final reports for procedures using fluoroscopy that document radiation exp osure indices, or exposure time and number of fluorographic images (if radiation exposure indices are not available) Please consult full operative report of the attending physician for description of the procedure. TECHNICAL DOCUMENTATION: JOB ID: [id number] [email or web address]- All Rights Reserved Reading location - IP/workstation name: [email or web address]
--- NOTE | 2018-02-21 17:30 | PDOC PROGRESS REPORT ---
Subjective Progress Note for:: 02/21/18 Subjective:: I am seeing the patient during dialysis this afternoon. He underwent PermCath placement by Dr. Matias earlier this afternoon which seems to have went well. His PermCath is functioning well and is working well during dialysis. This morning he had episodes of hypoglycemia requiring D50 infusion. Otherwise is currently tolerating dialysis without much problems. Reason For Visit: VENOUS STASIS,CELLULITIS Physical Exam Vital Signs: Temp Pulse Resp BP Pulse Ox 97.3 F 77 17 98/51 L 94 02/21/18 08:00 02/21/18 14:03 02/21/18 14:03 02/21/18 08:00 02/21/18 14:03 Pulse Oximeter Continuous Start: 02/05/18 18: 33 Freq: RTQ4 Status: Active Document 02/21/18 12:00 [facility] (Rec: 02/21/18 12:41 [facility] [id number]) Pulse Oximetry Assessment Oxygen Saturation (92-100) 97 Oxygen Flow Rate (L/min) 15 Oxygen Delivery Method Partial-Rebreather Fraction of Inspired Oxygen (FIO2) 75 Equipment Usage Equipment in Use Continuous SpO2 Machine # [id number] Intake & Output 02/20/18 02/21/18 02/22/18 06:59 06:59 06:59 Intake Total 909 820 Output Total 1075 1400 Balance -166 -580 Weight 128.1 kg 156.2 kg Vitals urinalysis: Blood pressure 119/64, heart rate of 82, blood flow rate of 350 mL/min, dialysate flow rate of 800ml/min. Exam: General appearance: PRESENT: no acute distress, cooperative, well-developed, well-nourished Head exam: PRESENT: atraumatic, normocephalic, decrease facial swelling Eye exam: PRESENT: conjunctiva mildly pale, PERRLA. ABSENT: scleral icterus Neck exam: ABSENT: JVD Respiratory exam: PRESENT: Diminished breath sounds. ABSENT: crackles, rales, rhonchi, unlabored, wheezes Cardiovascular exam: PRESENT: Regular rate rhythm -+S1, +S2. ABSENT: diastolic murmur, systolic murmur GI/Abdominal exam: PRESENT: normal bowel sounds, soft. ABSENT: guarding, mass, tenderness Extremities exam: Decreased upper extremity swelling and lower extremity edema Neurological exam: PRESENT: alert, awake, oriented to person, place and time. Skin exam: PRESENT: dry, warm Results Laboratory Results: 02/21/18 05:00 02/21/18 05:00 02/21/18 02/21/18 05:00 05:00 WBC 18.0 H RBC 3.14 L Hgb 9.4 L Hct 27.8 L MCV 89 MCH 30.0 MCHC 33.9 RDW 15.4 H Plt Count 145 L Seg Neutrophils % Not Reportable Lymphocytes % Not Reportable Monocytes % Not Reportable Eosinophils % Not Reportable Basophils % Not Reportable Absolute Neutrophils Not Reportable Absolute Lymphocytes Not Reportable Absolute Monocytes Not Reportable Absolute Eosinophils Not Reportable Absolute Basophils Not Reportable Sodium 139.7 Potassium 4.0 Chloride 94 L Carbon Dioxide 29 Anion Gap 17 BUN 100 H Creatinine 7.18 H Est GFR ( Amer) 9 L Est GFR (Non-Af Amer) 8 L Glucose 85 Calcium 8.6 Phosphorus 6.0 H Magnesium 2.3 02/05/18 06:29 NT-Pro-B Natriuret Pep 4820 H Impressions: Venous Doppler Study 02/02/18 00:00 IMPRESSION: NO EVIDENCE DVT OR SVT IN EITHER LEG. Modified Barium Swallow 02/07/18 00:00 IMPRESSION: LARYNGEAL PENETRATION WITH THIN AND NECTAR THICK CONSISTENCIES. TRACHEAL ASPIRATION SEEN FROM RESIDUALS.PLEASE SEE SPEECH PATHOLOGIST REPORT FOR OTHER FINDINGS AND RECOMMENDATIONS. Soft Tissue Neck CT 02/07/18 00:00 IMPRESSION: 1. NO SIGNIFICANT FINDING IN THE SOFT TISSUES OF THE NECK. 2. MAXILLARY SINUS DISEASE. 3. PATCHY GROUND-GLASS OPACITIES IN THE UPPER LOBES, RIGHT GREATER THAN LEFT. MAY BE DUE TO ATELECTASIS, INFLAMMATION, OR INFECTION. Renal Ultrasound 02/07/18 17:29 IMPRESSION: CHRONIC MEDICAL RENAL DISEASE. NO HYDRONEPHROSIS. Chest X-Ray 02/14/18 10:58 IMPRESSION: HEART ENLARGED WITHOUT FAILURE. NO CHANGE. Central Venous Line 02/21/18 00:00 IMPRESSION: INTRA PROCEDURAL IMAGING ABOVE . Guidance Fluoroscopy 02/21/18 00:00 IMPRESSION: INTRA PROCEDURAL IMAGING ABOVE . Assessment & Plan - Diagnosis (1) Acute kidney injury Is this a current diagnosis for this admission?: Yes Plan: Secondary to vancomycin toxicity causing ATN. Urine output is significantly improving. He will probably need hemodialysis support for a little bit more of time before expected renal recovery. His BUN and creatinine are still elevated and would still need hemodialysis support for now. We will do dialysis today for 3 hours, using the patient's usual place right [facility], with 2 potassium bath, blood flow rate of 350 mL per minute, dialysate flow rate of 800 mL per minute, ultrafiltration 2- 2.5 L as tolerated , no heparin and Procrit of 20,000 units intravenously during dialysis. The patient will be ready for discharge either to a rehab facility or home patient would need to be arranged for an outpatient dialysis for [place]. That is of course is and less the patient shows unremarkable renal recovery before discharge. (2) Somnolence Is this a current diagnosis for this admission?: Yes Plan: Much improved after initiation of hemodialysis and discontinuation of Lyrica. (3) Cellulitis of lower extremity Qualifiers: Laterality: right Qualified Code(s): L03.115 - Cellulitis of right lower limb Is this a current diagnosis for this admission?: Yes Plan: Treated with antibiotics and has completed its course. Currently off antibiotics. CARLOS and AnCa serologies were negative. (4) Venous stasis dermatitis of both lower extremities Is this a current diagnosis for this admission?: Yes (5) Hyperphosphatemia Is this a current diagnosis for this admission?: Yes Plan: Improving. Continue calcium acetate. (6) Aspiration into airway Qualifiers: Encounter type: subsequent encounter Qualified Code(s): T17.908D - Unspecified foreign body in respiratory tract, part unspecified causing other injury, subsequent encounter Is this a current diagnosis for this admission?: Yes (7) Diabetes Qualifiers: Diabetes mellitus type: type 2 Diabetes mellitus lobsterman insulin use: unspecified lobsterman insulin use status Diabetes mellitus complication status : without complication Qualified Code(s): E11.9 - Type 2 diabetes mellitus without complications Is this a current diagnosis for this admission?: Yes - Time Time with patient: 15-25 minutes
--- NOTE | 2018-02-21 21:49 | Progress Note ---
Provider Note Provider Note: The patient was in the operating room having a permacath placed. There was no encounter today. Continue to follow-up tomorrow.
[2018-02-21] MEDS: CETIRIZINE 10 MG TABLET PO SCH (22:10)
[2018-02-21] MEDS: ATORVASTATIN CALCIUM 80 MG TABLET PO SCH (22:10)
[2018-02-22] MEDS: DILTIAZEM HCL 30 MG TABLET PO SCH ×5 (01:00→23:16)
[2018-02-22] MEDS: IPRATROPIUM/ALBUTEROL 0.5-2.5 MG/3 ML AMPUL NEB SCH ×4 (01:56→20:24)
[2018-02-22] MEDS: LEVOTHYROXINE SODIUM 0.15 MG TABLET PO SCH (05:35)
[2018-02-22] MEDS: DEXTROSE 50%-WATER 25 GM/50 ML DISP.SYRIN IV PRN (06:35)
[2018-02-22] MEDS: INSULIN LISPRO 100 UNIT/ML 3 ML VIAL SUBCUT SCH ×3 (10:15→17:19)
[2018-02-22] MEDS: INSULIN DETEMIR 100 UNIT/ML 3 ML PEN SUBCUT SCH ×2 (10:16→17:35)
[2018-02-22] MEDS ORDERED: PREDNISONE 10 MG TABLET PO SCH (10:30)
[2018-02-22] MEDS: CALCIUM ACETATE 667 MG CAPSULE PO SCH ×3 (10:59→17:38)
[2018-02-22] MEDS: FLUTICASONE NASAL SPRAY 50 MCG/SPRY 120 SPRAY/16 GM NASL SCH ×2 (10:59→23:17)
[2018-02-22] MEDS: PREDNISONE 5 MG TABLET PO SCH (11:00)
[2018-02-22] MEDS: RISPERIDONE 1 MG TABLET PO SCH (11:00)
[2018-02-22] MEDS: ASPIRIN 325 MG TABLET PO SCH (11:02)
[2018-02-22] MEDS: PANTOT AC/MIN OIL/PET HY-PHL OINT 50 GM TOP SCH ×3 (11:03→17:39)
[2018-02-22] MEDS: LACTOBACILLUS ACIDOPHILUS 250 MG TAB PO SCH ×2 (11:03→17:34)
[2018-02-22] MEDS: FUROSEMIDE 20 MG TABLET PO SCH ×2 (11:03→17:34)
[2018-02-22] MEDS: METOPROLOL TARTRATE 50 MG TABLET PO SCH ×2 (17:18→23:16)
--- NOTE | 2018-02-22 20:31 | PDOC PROGRESS REPORT ---
Subjective Progress Note for:: 02/22/18 Subjective:: Patient was seen today sitting up in his chair. At the time he claimed to feel much better other than some soreness where his catheter was placed. He is currently awaiting placement and then should be ready for discharge. He denies chest pain, SOB, N/V/D/C. Reason For Visit: VENOUS STASIS,CELLULITIS Physical Exam Vital Signs: Temp Pulse Resp BP Pulse Ox 99.6 F 107 H 16 122/71 94 02/22/18 19:51 02/22/18 19:51 02/22/18 19:51 02/22/18 19:51 02/22/18 19:51 Pulse Oximeter Continuous Start: 02/05/18 18: 33 Freq: RTQ4 Status: Active Document 02/22/18 16:30 [facility] (Rec: 02/22/18 18:26 [facility] [id number]) Pulse Oximetry Assessment Oxygen Saturation (92-100) 95 Oxygen Delivery Method Room Air Fraction of Inspired Oxygen (FIO2) 21 Equipment Usage Equipment in Use Continuous SpO2 Machine # [id number] Intake & Output 02/21/18 02/22/18 02/23/18 06:59 06:59 06:59 Intake Total 820 760 Output Total 1400 4075 Balance -580 -3315 Weight 156.2 kg 152.4 kg General appearance: PRESENT: no acute distress, well-developed, well-nourished Mouth exam: PRESENT: moist, neck supple Neck exam: ABSENT: JVD, tracheal deviation Respiratory exam: PRESENT: clear to auscultation sadia. ABSENT: crackles, rales, rhonchi, wheezes Cardiovascular exam: PRESENT: +S1, +S2 GI/Abdominal exam: PRESENT: normal bowel sounds, soft. ABSENT: organomegaly, tenderness Extremities exam: PRESENT: pedal edema. ABSENT: tenderness, +1 edema, +2 edema Musculoskeletal exam: ABSENT: normal inspection, tenderness Neurological exam: PRESENT: alert, awake, oriented to person, oriented to place , oriented to time, oriented to situation Skin exam: PRESENT: dry, skin tears. ABSENT: intact Results Laboratory Results: 02/21/18 05:00 02/21/18 05:00 02/05/18 06:29 NT-Pro-B Natriuret Pep 4820 H Impressions: Venous Doppler Study 02/02/18 00:00 IMPRESSION: NO EVIDENCE DVT OR SVT IN EITHER LEG. Modified Barium Swallow 02/07/18 00:00 IMPRESSION: LARYNGEAL PENETRATION WITH THIN AND NECTAR THICK CONSISTENCIES. TRACHEAL ASPIRATION SEEN FROM RESIDUALS.PLEASE SEE SPEECH PATHOLOGIST REPORT FOR OTHER FINDINGS AND RECOMMENDATIONS. Soft Tissue Neck CT 02/07/18 00:00 IMPRESSION: 1. NO SIGNIFICANT FINDING IN THE SOFT TISSUES OF THE NECK. 2. MAXILLARY SINUS DISEASE. 3. PATCHY GROUND-GLASS OPACITIES IN THE UPPER LOBES, RIGHT GREATER THAN LEFT. MAY BE DUE TO ATELECTASIS, INFLAMMATION, OR INFECTION. Renal Ultrasound 02/07/18 17:29 IMPRESSION: CHRONIC MEDICAL RENAL DISEASE. NO HYDRONEPHROSIS. Chest X-Ray 02/14/18 10:58 IMPRESSION: HEART ENLARGED WITHOUT FAILURE. NO CHANGE. Central Venous Line 02/21/18 00:00 IMPRESSION: INTRA PROCEDURAL IMAGING ABOVE . Guidance Fluoroscopy 02/21/18 00:00 IMPRESSION: INTRA PROCEDURAL IMAGING ABOVE . Assessment & Plan - Diagnosis (1) Acute kidney failure Qualifiers: Acute renal failure type: unspecified Qualified Code(s): N17.9 - Acute kidney failure, unspecified Is this a current diagnosis for this admission?: Yes Plan: Will look to continue dialysis tomorrow. Currently showing great improvement in urine output. Has a CVC placed and will look to continue dialysis as outpatient once he is placed. (2) Metabolic acidosis Is this a current diagnosis for this admission?: Yes Plan: currently resolved (3) Somnolence Is this a current diagnosis for this admission?: Yes Plan: resolved (4) Diabetes Qualifiers: Diabetes mellitus type: type 2 Diabetes mellitus longterm insulin use: unspecified longterm insulin use status Diabetes mellitus complication status : without complication Qualified Code(s): E11.9 - Type 2 diabetes mellitus without complications Is this a current diagnosis for this admission?: Yes
--- NOTE | 2018-02-22 20:45 | PDOC PROGRESS REPORT ---
Subjective Progress Note for:: 02/22/18 Subjective:: Still with weeping from his legs, erythema and swelling. 02/03/2018-the patient still has weeping from some areas of his lower leg. Overall there are no new complaints. 02/04/2018-the patient is somnolent at this encounter. He also has a more congested cough. 02/05/2018-the patient actually sounds more congested today. He is sleepy again today. 02/06/2018-the patient is still very congested. He has a gurgly cough. He has not become hypoxic. He is still complaining of food getting stuck in his throat. He continues to complain about coughing when swallowing. 02/07/2018-the patient is slightly better today. He did have a modified barium swallow. He still feels poorly. New acute kidney injury is now present. The patient is also developed diarrhea. This is been over the last 2-3 days. He was constipated and this could be secondary to aggressive bowel regimen. 02/19/2018-the patient is somewhat dismayed. He has not been feeling better. In fact he admits to episodes of short temper and frustration with his situation. He is tired of being sick. He also complains of discomfort with his Dorantes catheter. He is clearly frustrated with the current hospitalization. February 20, 2018-the patient is very frustrated with his soft ground diet with nectar thick liquids. He is extremely tired of the applesauce. He does have a diet Pepsi and wonders why he cannot drink regular fluids. 02/21/2018-patient not seen today. He was in surgery for permacath placement. 02/22/2018-patient had successful placement of permacath catheter right upper chest. There is still sore. Patient is still discouraged by the texture of his diet to prevent aspiration. Reason For Visit: VENOUS STASIS,CELLULITIS Physical Exam Vital Signs: Temp Pulse Resp BP Pulse Ox 99.6 F 107 H 16 122/71 94 02/22/18 19:51 02/22/18 19:51 02/22/18 19:51 02/22/18 19:51 02/22/18 19:51 Pulse Oximeter Continuous Start: 02/05/18 18: 33 Freq: RTQ4 Status: Active Document 02/22/18 16:30 [facility] (Rec: 02/22/18 18:26 [facility] [email or web address]) Pulse Oximetry Assessment Oxygen Saturation (92-100) 95 Oxygen Delivery Method Room Air Fraction of Inspired Oxygen (FIO2) 21 Equipment Usage Equipment in Use Continuous SpO2 Machine # [id number] Intake & Output 02/21/18 02/22/18 02/23/18 06:59 06:59 06:59 Intake Total 820 760 Output Total 1400 1665 Balance -580 -3315 Weight 156.2 kg 152.4 kg General appearance: PRESENT: no acute distress, cooperative, well-developed Mouth exam: PRESENT: moist, tongue midline Neck exam: PRESENT: full ROM. ABSENT: carotid bruit, lymphadenopathy Respiratory exam: PRESENT: clear to auscultation sadia, symmetrical, unlabored. ABSENT: accessory muscle use, rales, rhonchi, wheezes Cardiovascular exam: PRESENT: RRR, +S1, +S2 GI/Abdominal exam: PRESENT: normal bowel sounds, soft. ABSENT: distended, tenderness Extremities exam: PRESENT: pedal edema Neurological exam: PRESENT: alert, awake, oriented to person, oriented to place , oriented to situation Psychiatric exam: PRESENT: appropriate affect, normal mood Skin exam: PRESENT: other - Chronic excoriations right leg. Results Laboratory Results: 02/21/18 05:00 02/21/18 05:00 02/05/18 06:29 NT-Pro-B Natriuret Pep 4820 H Impressions: Venous Doppler Study 02/02/18 00:00 IMPRESSION: NO EVIDENCE DVT OR SVT IN EITHER LEG. Modified Barium Swallow 02/07/18 00:00 IMPRESSION: LARYNGEAL PENETRATION WITH THIN AND NECTAR THICK CONSISTENCIES. TRACHEAL ASPIRATION SEEN FROM RESIDUALS.PLEASE SEE SPEECH PATHOLOGIST REPORT FOR OTHER FINDINGS AND RECOMMENDATIONS. Soft Tissue Neck CT 02/07/18 00:00 IMPRESSION: 1. NO SIGNIFICANT FINDING IN THE SOFT TISSUES OF THE NECK. 2. MAXILLARY SINUS DISEASE. 3. PATCHY GROUND-GLASS OPACITIES IN THE UPPER LOBES, RIGHT GREATER THAN LEFT. MAY BE DUE TO ATELECTASIS, INFLAMMATION, OR INFECTION. Renal Ultrasound 02/07/18 17:29 IMPRESSION: CHRONIC MEDICAL RENAL DISEASE. NO HYDRONEPHROSIS. Chest X-Ray 02/14/18 10:58 IMPRESSION: HEART ENLARGED WITHOUT FAILURE. NO CHANGE. Central Venous Line 02/21/18 00:00 IMPRESSION: INTRA PROCEDURAL IMAGING ABOVE . Guidance Fluoroscopy 02/21/18 00:00 IMPRESSION: INTRA PROCEDURAL IMAGING ABOVE . Assessment & Plan - Diagnosis (1) Acute kidney failure Qualifiers: Acute renal failure type: unspecified Qualified Code(s): N17.9 - Acute kidney failure, unspecified Is this a current diagnosis for this admission?: Yes Plan: 02/07/2018-the serum creatinine was increasing. I did give the patient some fluids to compensate. Unfortunately the serum creatinine almost doubled today. It is greater than 6.0. Nephrology will be seeing the patient. I have discontinued the vancomycin. I await nephrology suggestions for ongoing treatment plan. 02/19/2018-the patient remains on hemodialysis. They are trying to place a permacath catheter for ongoing dialysis. He is kidneys do not seem to have responded or shown any improvement in function. February 20, 2018-surgery will attempt placement of another permacath tomorrow. Continue hemodialysis per nephrology. 02/21/2018-not seen 02/22/2018-patient had successful placement of his permacath catheter. It performed without incident during hemodialysis. We will be securing a slot at the [facility] dialysis facility near the patient's nursing facility. He should be able to transfer tomorrow. (2) CAD (coronary artery disease), [place] coronary artery Qualifiers: [place] vs. transplanted heart: [place] heart Associated angina: without angina Qualified Code(s): I25.10 - Atherosclerotic heart disease of [place] coronary artery without angina pectoris Is this a current diagnosis for this admission?: Yes Plan: Continue metoprolol, benazepril, diltiazem, furosemide and Lipitor. Because of the congested cough with rales and wheeze I have increased the furosemide to 40 mg daily. I will repeat a chest x-ray today and obtain a brain natriuretic peptide. 02/06/2018-the patient's blood pressure has been low intermittently. His brain natruretic peptide is high. I am going to decrease his diltiazem dose in order to administer more Lasix. If his rate increases so we will consider increasing his metoprolol. 02/07/2018-I did decrease the diltiazem to 120 mg daily. This will be changed to 30 mg every 6 hours because of his aspiration. His blood pressure and pulse have remained reasonably controlled. 02/19/2018-I did review the results of his recent echocardiogram. He has ventricular systolic failure with a depressed ejection fraction of approximately 35%. February 20, 2018-cardiac status is stable despite depressed ejection fraction. 02/21/2018-not seen 02/22/2018-currently stable. Volume status adequately controlled with dialysis. Continue current regimen. (3) Aspiration into airway Qualifiers: Encounter type: subsequent encounter Qualified Code(s): T17.908D - Unspecified foreign body in respiratory tract, part unspecified causing other injury, subsequent encounter Is this a current diagnosis for this admission?: Yes Plan: 02/07/2018-the patient has had a congested cough. He recognized that he was coughing when he ate. This did not significantly improve during his stay. Modified barium swallow was obtained today which showed namrata aspiration, significant reflux and pooling in the vallecula. I will ask GI to see the patient for esophagogastroscopy. Speech therapy has made dietary changes to compensate for his compromised swallow. We will also obtain a CT scan for the soft tissues in the neck to rule out any anatomical issues that might be compromising his swallow. 02/19/2018-the patient is still on altered texture diet. He admits that at times his swallow seems "okay "but at other times he coughs. The rhonchorous breath sounds on the right are likely due to recurrent aspiration. February 20, 2018-the right lung still sounds coarse likely due to recurrent aspiration. I did try to explain that we are trying to protect his lung. In the past patients have opted to eat a regular diet despite the risks. I do not know if he clearly understands all of the concerns about a decision like this. At this time we will continue his current diet. 02/21/2018-not seen 02/22/2018-speech therapy evaluated the patient again today. The patient is discouraged about his nectar thickened liquids with textured/chopped food. Unfortunately the speech therapist does not feel that the patient truly comprehends the risks of changing him to thin liquids with regular diet. He has exhibited significant aspiration. We will keep his diet as is for the time being. (4) Atrial fibrillation Qualifiers: Atrial fibrillation type: paroxysmal Qualified Code(s): I48.0 - Paroxysmal atrial fibrillation Is this a current diagnosis for this admission?: Yes Plan: The patient had an episode of tachycardia yesterday. He was placed on telemetry. He is in atrial fibrillation. He is already on diltiazem and metoprolol. He is not on long-term anticoagulation. I will monitor and if there is no contraindication consider initiating therapy. 02/06/2018-the patient is still in A. fib. I am going to add Eliquis. I will discontinue his subcutaneous heparin tomorrow. We will need to monitor his rate. I am lowering his diltiazem dose in order to administer more furosemide. Because of the ongoing atrial fibrillation I did add Eliquis. I will discontinue his subcutaneous heparin. If he needs a gastroscopy we will need to hold the Eliquis before hand. 02/19/2018-currently stable on his medication regimen. He is no longer on long- term anticoagulation. The risks at this time outweigh the benefits. February 20, 2018-no anticoagulation at this time as noted above. Currently stable. Continue same regimen. 02/21/2018 as above 02/22/2018 as above (5) Cellulitis of lower extremity Qualifiers: Laterality: right Qualified Code(s): L03.115 - Cellulitis of right lower limb Is this a current diagnosis for this admission?: Yes Plan: The patient has cellulitis of both lower extremities. He is on Zosyn and vancomycin. MRSA screen is pending. If negative consider discontinuing vancomycin. There is asymmetric swelling with his right leg greater than his left. Doppler study was negative for DVT. This is possibly chronic. He still has significant erythema and drainage. Consider multilayer compression wraps. 02/03/2018-bilateral cellulitis. I will discontinue his vancomycin as the MRSA screening test was negative. We will continue the Zosyn. He still has discomfort on the legs making compression wrap therapy unreasonable. 02/04/2018-we will continue Zosyn therapy since the MRSA screen was negative. I would like to complete at least 10 days of therapy. It will also be of benefit to apply moisturizer to the patient's legs twice daily. 02/05/2018-the legs are improving. There is less erythema and less swelling. He is on Zosyn. I am adding vancomycin more for his pulmonary issues. May extend the Zosyn to match the vancomycin. 02/06/2018-continued improvement. Continue vancomycin and Zosyn. 02/07/2018-we will continue the Zosyn. The patient's acute kidney injury has forced me to discontinue the vancomycin completely. I will check levels. Resume when appropriate. I will also adjust the Zosyn. 02/19/2018-cellulitis resolved. Antibiotic therapy completed. 02/20/2018- will receive 1 gram ancef before surgery in am. 02/21/2018-resolved (6) Diabetes Qualifiers: Diabetes mellitus type: type 2 Diabetes mellitus predatory animal exterminator insulin use: unspecified care home insulin use status Diabetes mellitus complication status : without complication Qualified Code(s): E11.9 - Type 2 diabetes mellitus without complications Is this a current diagnosis for this admission?: Yes Plan: We will continue his insulin therapy. With the infection he is exhibiting some high glucose readings. He is on Humalog sliding scale. 02/03/2018-he still has elevated serum glucose levels but they seem to be slowly trending downward. There is still over 200 for the most part. I will increase his bedtime Levemir to 45 units and increase his morning Levemir to 47 units. We will continue the sliding scale coverage. 02/04/2018-just increase the Levemir yesterday. I will await 1 or 2 days and monitor the fingersticks before making additional changes. 02/05/2018-his Accu-Cheks still sore from variability but overall seems to be improving. 02/06/2018-the patient's glucose was high this morning. He did receive a dose of Solu-Medrol last night. I am going to place him on prednisone 20 mg daily for pulmonary reasons. I believe his current Lantus dose unchanged and monitor the sliding scale. His glucose should decrease with the decreased steroid dose. 02/07/2018-the Levemir is now 55 units in the morning and 45 units at night. He is still having elevated glucose readings. I will make slow adjustments based on the Humalog sliding scale requirements. 02/19/2018-still showing fluctuations in his insulin regimen. He is on Levemir twice daily as well as 10 units of Humalog with meals. I will need to review further before deciding on any changes to his regimen. February 20, 2018-the patient will be n.p.o. after midnight. I have asked that he only get half of his dose of Levemir tonight and none in the morning. He will still have the sliding scale coverage. 02/21/2018-postoperatively the patient had hypoglycemia. This was successfully treated via the insulin protocols. 02/22/2018-the patient received a less Lantus today. Unfortunately his glucose was elevated. I believe the hypoglycemic episode had more to do with the interruption of his normal daily pattern due to the surgery. I will monitor her sugars for 1 more day and likely readjust his Lantus. (7) Hypothyroid Qualifiers: Hypothyroidism type: unspecified Qualified Code(s): E03.9 - Hypothyroidism , unspecified Is this a current diagnosis for this admission?: Yes Plan: Continue levothyroxine 150 mcg daily. (8) Dysphagia Qualifiers: Dysphagia type: pharyngeal phase Qualified Code(s): R13.13 - Dysphagia, pharyngeal phase Is this a current diagnosis for this admission?: Yes Plan: February 20, 2018-as noted above the patient is very frustrated with his diet. I do not believe he fully comprehends the nature of going back to regular diet with the high risk of aspiration. We will continue his current diet at this time. 02/21/2018-not seen 02/22/2018-see above - Time Time Spent with patient: 15-24 minutes Medications reviewed and adjusted accordingly: Yes
[2018-02-22] MEDS: ATORVASTATIN CALCIUM 80 MG TABLET PO SCH (23:15)
[2018-02-22] MEDS: CETIRIZINE 10 MG TABLET PO SCH (23:16)
[2018-02-23] MEDS: IPRATROPIUM/ALBUTEROL 0.5-2.5 MG/3 ML AMPUL NEB SCH ×4 (02:18→20:50)
[2018-02-23 04:48] LABS: ABSOLUTE RETICS # 0.024 10^6/uL (0.028-0.122); HEMATOCRIT 27.2 % (37.9-51.0); HEMOGLOBIN 9.4 g/dL (13.5-17.0); MEAN CORPUSCULAR HEMOGLOBIN 30.5 pg (27.0-33.4); MEAN CORPUSCULAR HGB CONC 34.4 g/dL (32.0-36.0); MEAN CORPUSCULAR VOLUME 89 fl (80-97); PLATELET COUNT 143 10^3/uL (150-450); RED BLOOD COUNT 3.07 10^6/uL (4.35-5.55); RED CELL DISTRIBUTION WIDTH 15.3 % (11.5-14.0); RETICULOCYTE COUNT (AUTO) 0.79 % (0.66-2.85); WHITE BLOOD COUNT 9.7 10^3/uL (4.0-10.5)
[2018-02-23 05:11] LABS: ANION GAP 15 (5-19); BLOOD UREA NITROGEN 84 mg/dL (7-20); CALCIUM 8.8 mg/dL (8.4-10.2); CARBON DIOXIDE 28 mmol/L (22-30); CHLORIDE 98 mmol/L (98-107); GLUCOSE 182 mg/dL (75-110); IRON(TIBC) 54.6 ug/dL (49-181); POTASSIUM 4.1 mmol/L (3.6-5.0); SODIUM 141.1 mmol/L (137-145)
[2018-02-23] MEDS: LEVOTHYROXINE SODIUM 0.15 MG TABLET PO SCH (05:30)
[2018-02-23] MEDS: DILTIAZEM HCL 30 MG TABLET PO SCH ×3 (05:30→18:20)
[2018-02-23] MEDS: INSULIN LISPRO 100 UNIT/ML 3 ML VIAL SUBCUT SCH ×3 (08:30→18:23)
[2018-02-23] MEDS: CALCIUM ACETATE 667 MG CAPSULE PO SCH ×3 (08:47→18:23)
[2018-02-23] MEDS: LACTOBACILLUS ACIDOPHILUS 250 MG TAB PO SCH ×2 (10:46→18:20)
[2018-02-23] MEDS: FLUTICASONE NASAL SPRAY 50 MCG/SPRY 120 SPRAY/16 GM NASL SCH (10:46)
[2018-02-23] MEDS: INSULIN DETEMIR 100 UNIT/ML 3 ML PEN SUBCUT SCH ×2 (10:46→18:25)
[2018-02-23] MEDS: PREDNISONE 5 MG TABLET PO SCH (10:46)
--- NOTE | 2018-02-23 12:31 | PDOC TRANSFER SUMMARY ---
General - Admit/Disc Date/PCP Admission Date/Primary Care Provider: 01/31/18 21:57 LIAM NIÑO PA-C Discharge Date: 02/23/18 - Discharge Diagnosis (1) Acute kidney failure Is this a current diagnosis for this admission?: Yes Summary: The patient was initially admitted for infection. He was on multiple antibiotics including vancomycin. It is felt that he developed vasculitis causing the severe acute renal failure. He is currently on a slow steroid taper. He should likely stay on 5 mg for several weeks. I would defer to nephrology for exact timeframe. The patient will continue dialysis. Nephrology will follow the patient to assess for any recovery. The had a Dorantes catheter placed. This allowed exact monitoring of intake and output. Defer to nephrology but consider removing the catheter at the skilled facility and observe for urinary retention. (2) CAD (coronary artery disease), [place] coronary artery Is this a current diagnosis for this admission?: Yes Summary: Patient has history of coronary disease. His current medications did undergo adjustment based on blood pressure changes and the initiation of hemodialysis. On February 19, 2018 he did have an echocardiogram. This showed an ejection fraction of 35%. Continue current cardiac medications and adjust for changes in blood pressure. (3) Aspiration into airway Is this a current diagnosis for this admission?: Yes Summary: The patient exhibited coughing with eating. He stated that this has been going on for a while. Speech therapy did see the patient. He was diagnosed with dysphasia. Please see speech therapy's recommendations for current diet. He would benefit from ongoing speech therapy at the alf facility. (4) Atrial fibrillation Is this a current diagnosis for this admission?: Yes Summary: The patient does have underlying atrial fibrillation but he is on diltiazem and metoprolol with good effect. He is not currently on long-term anticoagulation because there is a concern of risk versus benefit continue current cardiac medications. (5) Cellulitis of lower extremity Is this a current diagnosis for this admission?: Yes Summary: Resolved with antibiotic therapy (6) Diabetes Is this a current diagnosis for this admission?: Yes Summary: Patient is on Levemir twice daily. This is been adjusted several times. He was recently exhibited hypoglycemia the day after his surgery. I would continue his Levemir with Humalog sliding scale. (7) Hypothyroid Is this a current diagnosis for this admission?: Yes Summary: Continue levothyroxine 150 mcg daily. (8) Dysphagia Is this a current diagnosis for this admission?: Yes Summary: Speech therapy reevaluated the patient after the initial exam. The patient still requires dietary modifications. Please see speech therapy notes for specifics. - Additional Information Resuscitation Status: Full Code Home Medications: Aspirin [Aspirin 325 mg Tablet] 325 mg PO DAILY 12/21/12 Atorvastatin Calcium [Lipitor 80 mg Tablet] 80 mg PO QHS 12/21/12 Benazepril HCl [Lotensin 10 mg Tablet] 10 mg PO DAILY 12/21/12 Pregabalin [Lyrica 75 mg Capsule] 150 mg PO Q8 12/21/12 Furosemide [Lasix] 40 mg PO DAILY 08/09/13 Diltiazem HCl [Cardizem Cd 180 mg Capsule] 180 mg PO DAILY #30 capsule.cr Metoprolol Tartrate [Lopressor 50 mg Tablet] 50 mg PO Q12 #60 tablet 08/11/13 Insulin Detemir [Levemir Insulin 300 Units/3 ml Insuln.pen] 60 unit SUBCUT QAM 06/12/16 Levothyroxine Sodium 150 mcg PO Q6AM 06/12/16 Potassium Chloride 20 meq PO [id number] 06/12/16 Sitagliptin Phosphate [Januvia] 100 mg PO DAILY 06/12/16 Albuterol Sulfate [Ventolin 0.083% Neb 2.5 mg/3 ml Ampul] 1 vial NEB RTQ4HP PRN 02/01/18 Cetirizine HCl [Zyrtec 10 mg Tablet] 10 mg PO DAILY 02/01/18 Fluticasone Propionate [Flonase Nasal [place] 50 Mcg/[place] 16 gm] 1 spray NAREB DAILY 02/01/18 Fluticasone/Vilanterol [Breo Ellipta 200-25 Mcg INH] 1 puff IH DAILY 02/01/18 Insulin Detemir [Levemir Insulin 300 Units/3 ml Insuln.pen] 55 unit SUBCUT QHS 02/01/18 Nitroglycerin [Nitrostat 0.4 mg (1/150 Gr) Tabs 25/Bottle] 1 tab SL Q5MP PRN History of Present Illness Admission Date/PCP: 01/31/18 21:57 LIAM NIÑO PA-C Patient complains of: Cellulitis on his legs History of Present Illness: SALBADOR AVILES is a 63 year old male who initially presented on January 31 for bilateral lower extremity cellulitis. He had a history of atrial fibrillation, decreased cardiomyopathy and was complaining about coughing when swallowing. He had an extremely complicated hospitalization with adjustments required in his cardiac meds, insulin therapy and the initiation of hemodialysis. Please see details outlined above. Physical Exam Vital Signs: Temp Pulse Resp BP Pulse Ox 98.8 F 94 14 113/50 L 94 02/23/18 08:00 02/23/18 08:10 02/23/18 08:10 02/23/18 08:00 02/23/18 08:10 Pulse Oximeter Continuous Start: 02/05/18 18: 33 Freq: RTQ4 Status: Active Document 02/23/18 08:10 [facility] (Rec: 02/23/18 08:26 [facility] [email or web address]) Pulse Oximetry Assessment Oxygen Saturation (92-100) 94 Oxygen Delivery Method Room Air Fraction of Inspired Oxygen (FIO2) 21 Equipment Usage Equipment in Use Continuous SpO2 Machine # 6 Intake & Output 02/22/18 02/23/18 02/24/18 06:59 06:59 06:59 Intake Total 760 Output Total 4075 Balance -3315 Weight 152.4 kg 149.8 kg General appearance: PRESENT: no acute distress, cooperative, well-developed Mouth exam: PRESENT: moist, tongue midline Respiratory exam: PRESENT: clear to auscultation sadia, symmetrical, unlabored. ABSENT: rales, rhonchi, wheezes Cardiovascular exam: PRESENT: irregular rhythm Vascular exam: PRESENT: other - Dialysis catheter right upper chest GI/Abdominal exam: PRESENT: normal bowel sounds, soft. ABSENT: tenderness Neurological exam: PRESENT: alert, awake, oriented to person, oriented to place - Patient with chronic developmental delay. Psychiatric exam: PRESENT: appropriate affect, normal mood Skin exam: PRESENT: other - Chronic right leg excoriations. Results Laboratory Results: 02/23/18 04:04 02/23/18 04:04 02/23/18 02/23/18 04:04 04:04 WBC 9.7 RBC 3.07 L Hgb 9.4 L Hct 27.2 L MCV 89 MCH 30.5 MCHC 34.4 RDW 15.3 H Plt Count 143 L Retic Count (auto) 0.79 Absolute Retic 0.024 L Sodium 141.1 Potassium 4.1 Chloride 98 Carbon Dioxide 28 Anion Gap 15 BUN 84 H Creatinine 5.72 H Est GFR ( Amer) 12 L Est GFR (Non-Af Amer) 10 L Glucose 182 H Calcium 8.8 Iron 54.6 TIBC 264 % Saturation 21 Ferritin 516.00 H Vitamin B12 827.0 Folate 11.80 02/05/18 06:29 NT-Pro-B Natriuret Pep 4820 H Impressions: Venous Doppler Study 02/02/18 00:00 IMPRESSION: NO EVIDENCE DVT OR SVT IN EITHER LEG. Modified Barium Swallow 02/07/18 00:00 IMPRESSION: LARYNGEAL PENETRATION WITH THIN AND NECTAR THICK CONSISTENCIES. TRACHEAL ASPIRATION SEEN FROM RESIDUALS.PLEASE SEE SPEECH PATHOLOGIST REPORT FOR OTHER FINDINGS AND RECOMMENDATIONS. Soft Tissue Neck CT 02/07/18 00:00 IMPRESSION: 1. NO SIGNIFICANT FINDING IN THE SOFT TISSUES OF THE NECK. 2. MAXILLARY SINUS DISEASE. 3. PATCHY GROUND-GLASS OPACITIES IN THE UPPER LOBES, RIGHT GREATER THAN LEFT. MAY BE DUE TO ATELECTASIS, INFLAMMATION, OR INFECTION. Renal Ultrasound 02/07/18 17:29 IMPRESSION: CHRONIC MEDICAL RENAL DISEASE. NO HYDRONEPHROSIS. Chest X-Ray 02/14/18 10:58 IMPRESSION: HEART ENLARGED WITHOUT FAILURE. NO CHANGE. Central Venous Line 02/21/18 00:00 IMPRESSION: INTRA PROCEDURAL IMAGING ABOVE . Guidance Fluoroscopy 02/21/18 00:00 IMPRESSION: INTRA PROCEDURAL IMAGING ABOVE . Transfer Plan - Disposition Transfer Plan: The patient is being transferred to [place] to alf [facility]. He will receive outpatient dialysis at [facility]. Nephrology will continue to follow. He will benefit from ongoing speech, physical and occupational therapy. - Time Spent with Patient Time spent with patient: Greater than 30 Minutes Qualifiers - * PATIENT BEING DISCHARGED WITH ANY OF THE FOLLOWING DIAGNOSIS: Heart Failure HF Pt being discharged on ACEI for LVEF less than 40%?: No Reason(s) for not prescribing ACEI:: Contraindicated - Patient with new acute kidney failure HF Pt being discharged on ARBS for LVEF less than 40%?: No Reason(s) for not prescribing ARBS:: Contraindicated - As above. Defer resumption of therapy to nephrology. HF Pt with Afib discharged with Warfarin?: No Reason(s) for not prescribing Warfarin:: Procedure Contraindicated - It is felt that risk outweighs benefit for this particular patient. HF Pt discharged on evidence-based Beta Ya:: Yes Plan Discharge Plan: As noted above Time Spent: Greater than 30 Minutes
[2018-02-23] MEDS: FUROSEMIDE 20 MG TABLET PO SCH ×2 (14:57→18:20)
[2018-02-23] MEDS: METOPROLOL TARTRATE 50 MG TABLET PO SCH (14:57)
[2018-02-23] MEDS ORDERED: EPOETIN ALFA INJ 20000 UNIT/1 ML VIAL (RENAL) IV PRN (15:32)
[2018-02-23 17:32] VITALS: BP 114/56
[2018-02-23] MEDS: RISPERIDONE 1 MG TABLET PO SCH (18:23)
[2018-02-23] MEDS: ASPIRIN 325 MG TABLET PO SCH (18:25)
[2018-02-23] MEDS: PANTOT AC/MIN OIL/PET HY-PHL OINT 50 GM TOP SCH (18:26)
--- NOTE | 2018-02-23 20:45 | PDOC PROGRESS REPORT ---
Subjective Progress Note for:: 02/23/18 Subjective:: I saw the patient during dialysis treatment this afternoon at around 3:35 PM. Patient looks good and does not have any complaints. He was tolerating dialysis without any problems at all. Patient will be transferred to [facility] and he will be have dialysis at [facility]. Reason For Visit: VENOUS STASIS,CELLULITIS Physical Exam Vital Signs: Temp Pulse Resp BP Pulse Ox 98.5 F 95 18 114/56 L 96 02/23/18 16:56 02/23/18 16:56 02/23/18 16:56 02/23/18 16:56 02/23/18 16:56 Pulse Oximeter Continuous Start: 02/05/18 18: 33 Freq: RTQ4 Status: Active Document 02/23/18 12:00 [facility] (Rec: 02/23/18 12:40 [facility] [id number]) Pulse Oximetry Assessment Oxygen Saturation (92-100) 95 Oxygen Delivery Method Room Air Fraction of Inspired Oxygen (FIO2) 21 Equipment Usage Equipment in Use Continuous SpO2 Machine # 6 Intake & Output 02/22/18 02/23/18 02/24/18 06:59 06:59 06:59 Intake Total 760 768 Output Total 4072 3440 Balance -3315 -0577 Weight 152.4 kg 149.8 kg Vitals during dialysis treatment earlier: Blood pressure 139/59, heart pulse rate of 78, blood flow rate of 250 mL/min, dialysate flow rate of 800 mL/min. Exam: General appearance: PRESENT: no acute distress, cooperative, well-developed, well-nourished Head exam: PRESENT: atraumatic, normocephalic Eye exam: PRESENT: conjunctiva pale, PERRLA. ABSENT: scleral icterus Neck exam: ABSENT: JVD Respiratory exam: PRESENT: Normal breath sounds. ABSENT: crackles, rales, rhonchi, unlabored, wheezes Cardiovascular exam: PRESENT: Irregular rate rhythm -+S1, +S2. ABSENT: diastolic murmur, systolic murmur GI/Abdominal exam: PRESENT: normal bowel sounds, soft. ABSENT: guarding, mass, tenderness Extremities exam: Improved bilateral grade 1 lower extremity pitting edema Neurological exam: PRESENT: alert, awake, oriented to person, place and time. Skin exam: PRESENT: dry, warm, Cardiovascular exam: PRESENT: +S1, +S2 GI/Abdominal exam: PRESENT: normal bowel sounds, soft. ABSENT: organomegaly, tenderness Results Laboratory Results: 02/23/18 04:04 02/23/18 04:04 02/23/18 02/23/18 04:04 04:04 WBC 9.7 RBC 3.07 L Hgb 9.4 L Hct 27.2 L MCV 89 MCH 30.5 MCHC 34.4 RDW 15.3 H Plt Count 143 L Retic Count (auto) 0.79 Absolute Retic 0.024 L Sodium 141.1 Potassium 4.1 Chloride 98 Carbon Dioxide 28 Anion Gap 15 BUN 84 H Creatinine 5.72 H Est GFR ( Amer) 12 L Est GFR (Non-Af Amer) 10 L Glucose 182 H Calcium 8.8 Iron 54.6 TIBC 264 % Saturation 21 Ferritin 516.00 H Vitamin B12 827.0 Folate 11.80 02/05/18 06:29 NT-Pro-B Natriuret Pep 4820 H Impressions: Venous Doppler Study 02/02/18 00:00 IMPRESSION: NO EVIDENCE DVT OR SVT IN EITHER LEG. Modified Barium Swallow 02/07/18 00:00 IMPRESSION: LARYNGEAL PENETRATION WITH THIN AND NECTAR THICK CONSISTENCIES. TRACHEAL ASPIRATION SEEN FROM RESIDUALS.PLEASE SEE SPEECH PATHOLOGIST REPORT FOR OTHER FINDINGS AND RECOMMENDATIONS. Soft Tissue Neck CT 02/07/18 00:00 IMPRESSION: 1. NO SIGNIFICANT FINDING IN THE SOFT TISSUES OF THE NECK. 2. MAXILLARY SINUS DISEASE. 3. PATCHY GROUND-GLASS OPACITIES IN THE UPPER LOBES, RIGHT GREATER THAN LEFT. MAY BE DUE TO ATELECTASIS, INFLAMMATION, OR INFECTION. Renal Ultrasound 02/07/18 17:29 IMPRESSION: CHRONIC MEDICAL RENAL DISEASE. NO HYDRONEPHROSIS. Chest X-Ray 02/14/18 10:58 IMPRESSION: HEART ENLARGED WITHOUT FAILURE. NO CHANGE. Central Venous Line 02/21/18 00:00 IMPRESSION: INTRA PROCEDURAL IMAGING ABOVE . Guidance Fluoroscopy 02/21/18 00:00 IMPRESSION: INTRA PROCEDURAL IMAGING ABOVE . Assessment & Plan - Diagnosis (1) Acute kidney injury Is this a current diagnosis for this admission?: Yes Plan: Secondary to vancomycin toxicity causing ATN. Urine output is significantly improving. We did dialysis today for 3 hours, using the patient's PermCath, with 2 potassium bath, blood flow rate of 350 mL per minute, dialysate flow rate of 800 mL per minute, ultrafiltration 2.5 L as tolerated, no have and Procrit with 20,000 units during dialysis intravenously. Patient will continue dialysis at [facility] dialysis unit as [place] patient. He will then need to be reevaluated for renal recovery which is very possible in his case since he has a normal kidney function is at baseline. Patient's urine output is actually improved for the last 3-4 days and is a high chance that the patient's kidney function will recover. (2) Anemia Is this a current diagnosis for this admission?: Yes (3) Hyperphosphatemia Is this a current diagnosis for this admission?: Yes Plan: Improving. Continue calcium acetate. (4) Somnolence Is this a current diagnosis for this admission?: Yes Plan: Resolved. (5) Cellulitis of lower extremity Qualifiers: Laterality: right Qualified Code(s): L03.115 - Cellulitis of right lower limb Is this a current diagnosis for this admission?: Yes Plan: Treated with antibiotics and has completed its course. Currently off antibiotics. CARLOS and AnCa serologies were negative. (6) Venous stasis dermatitis of both lower extremities Is this a current diagnosis for this admission?: Yes (7) Aspiration into airway Qualifiers: Encounter type: subsequent encounter Qualified Code(s): T17.908D - Unspecified foreign body in respiratory tract, part unspecified causing other injury, subsequent encounter Is this a current diagnosis for this admission?: Yes (8) Diabetes Qualifiers: Diabetes mellitus type: type 2 Diabetes mellitus long-term insulin use: unspecified long-term insulin use status Diabetes mellitus complication status : without complication Qualified Code(s): E11.9 - Type 2 diabetes mellitus without complications Is this a current diagnosis for this admission?: Yes - Time Time with patient: 15-25 minutes
== END 2018-02-23 21:55 | DRG 603 ==
LOC: ER 16:43 → EH 21:57 → OBSVTOIN 21:57 → 4N 23:15
PROVIDERS: ADMIT Internal Medicine; ATTEND Internal Medicine
PROC: 06HM33Z Insertion of Infusion Device into Right Femoral Vein, Percutaneous Approach (ICD-10-PCS; 2018-02-08)
PROC: B54BZZA Ultrasonography of Right Lower Extremity Veins, Guidance (ICD-10-PCS; 2018-02-08)
PROC: 02H633Z Insertion of Infusion Device into Right Atrium, Percutaneous Approach (ICD-10-PCS; 2018-02-17)
PROC: B244ZZZ Ultrasonography of Right Heart (ICD-10-PCS; 2018-02-17)
PROC: 02HV33Z Insertion of Infusion Device into Superior Vena Cava, Percutaneous Approach (ICD-10-PCS; principal; 2018-02-21)
PROC: B548ZZA Ultrasonography of Superior Vena Cava, Guidance (ICD-10-PCS; 2018-02-21)
PROC: B5091ZZ Plain Radiography of Inferior Vena Cava using Low Osmolar Contrast (ICD-10-PCS; 2018-02-21)
PROC: 02H633Z Insertion of Infusion Device into Right Atrium, Percutaneous Approach (ICD-10-PCS; 2018-02-21)
PROC: B2141ZZ Fluoroscopy of Right Heart using Low Osmolar Contrast (ICD-10-PCS; 2018-02-21)
DX: L03.115 Cellulitis of right lower limb (principal); N17.9 Acute kidney failure, unspecified; I50.20 Unspecified systolic (congestive) heart failure; I42.9 Cardiomyopathy, unspecified; I11.0 Hypertensive heart disease with heart failure; I87.8 Other specified disorders of veins; I25.10 Atherosclerotic heart disease of native coronary artery without angina pectoris; I48.91 Unspecified atrial fibrillation; E11.9 Type 2 diabetes mellitus without complications; E03.9 Hypothyroidism, unspecified; R13.10 Dysphagia, unspecified; J44.9 Chronic obstructive pulmonary disease, unspecified; Z79.82 Long term (current) use of aspirin; Z79.899 Other long term (current) drug therapy; Z95.5 Presence of coronary angioplasty implant and graft; I25.2 Old myocardial infarction; Z90.49 Acquired absence of other specified parts of digestive tract; Z95.1 Presence of aortocoronary bypass graft; F17.200 Nicotine dependence, unspecified, uncomplicated
CPT/HCPCS: 36415; 36556; 36558; 36600; 70490; 71045; 74230; 76770; 76937; 77001; 80048; 80053; 80069; 80202; 81001; 82550; 82565; 82607; 82728; 82746; 82803; 82962; 83036; 83516; 83540; 83550; 83605; 83735; 83880; 84100; 84132; 84439; 84443; 85025; 85027; 85045; 85610; 85730; 86038; 86256; 86317; 86704; 87040; 87340; 87522; 93306; 93926; 93970; 94640; 94762; 96365; 96366; 96372; 99285; C1713; C1752; C1887; G8978-GP; G8979-GP; G8987-GO; G8988-GO; G8996-GN; G8997-GN; G8998-GN; J0610; J0690; J1644; J1815; J2250; J2543; J2930; J3010; J3370; J3490; J7030; J7060; J7512; J7620; Q4081